=== PATIENT | female | born 1940 | race Caucasian/White ===

== ENCOUNTER 2018-01-04 05:46 | Outpatient (CLI) | payer SELFPAY | END 2018-01-04 05:47 | disposition EMS.NT | LOC: EMS 05:46 | PROVIDERS: ATTEND Surgery | DX: R53.1 Weakness (principal); W01.0XXA Fall on same level from slipping, tripping and stumbling without subsequent striking against object, initial encounter; Y92.002 Bathroom of unspecified non-institutional (private) residence as the place of occurrence of the external cause ==

== ENCOUNTER 2020-12-28 17:52 | Outpatient (CLI) | payer MEDICARE | END 2020-12-28 17:53 | disposition EMS.NT | LOC: EMS 17:52 | DX: Z03.89 Encounter for observation for other suspected diseases and conditions ruled out (principal) ==

== ENCOUNTER 2021-01-02 18:08 | Outpatient (CLI) | payer MEDICARE | END 2021-01-02 18:09 | disposition critical access hospital (66) | LOC: EMS 18:08 | DX: R53.1 Weakness (principal); M79.605 Pain in left leg; M79.604 Pain in right leg; L98.9 Disorder of the skin and subcutaneous tissue, unspecified; Z74.2 Need for assistance at home and no other household member able to render care | CPT/HCPCS: A0425; A0429 ==

== ENCOUNTER 2021-01-02 18:30 | Inpatient (IN) | payer MEDICARE ==
--- NOTE | 2021-01-02 18:58 | ED Physician Documentation ---
History of Present Illness - Stated complaint Stated Complaint: WEAKNESS - Chief complaint Chief Complaint: General - History obtained from History obtained from: Patient, EMS - Additonal information Additional information: 80-year-old woman presents by ambulance for inability to care for self. Since the hip surgery many years ago she developed lymphedema of both lower extremities which has been progressive. She lives alone, her daughter visits from the other side of [place] and helps out but is unable to give her the level of care she needs. At this point the patient is minimally ambulatory but says she can walk with a walker and may be some assistance. The pain in her legs is progressive. She is generally weak and has basically crumpled out of her chair 2 times in 48 hours. There was no specific injury. She is noted to be in atrial fibrillation on the way in, there was no previous diagnosis of this. She denies chest pain or trouble breathing though. Review of Systems Ten Systems: 10 systems reviewed and negative Constitutional: reports: Reviewed and negative Ears: reports: Reviewed and negative Nose: reports: Reviewed and negative PD PAST MEDICAL HISTORY - Present Medications Home Medications: Ambulatory Orders Medication Instructions Recorded Confirmed Duloxetine HCl [Cymbalta] 60 mg PO DAILY 01/02/21 01/02/21 - Allergies Allergies/Adverse Reactions: Allergies Allergy/AdvReac Type Severity Reaction Status Date / Time No Known Drug Allergies Allergy Verified 01/02/21 18:50 PD ED PE NORMAL - Vitals Vital signs reviewed: Yes - General General: Alert and oriented X 3, No acute distress, Other (She is covered in [facility]) - HEENT HEENT: PERRL, EOMI - Neck Neck: Supple, no meningeal sign, No bony TTP - Cardiac Cardiac: Other (Irregularly irregular without murmur) - Respiratory Respiratory: No respiratory distress, Clear bilaterally - Abdomen Abdomen: Normal bowel sounds, Soft, Non tender (She has intertriginous candidiasis in the groin) - Back Back: No CVA TTP, No spinal TTP - Extremities Extremities: Other (Bilateral pitting pedal edema with changes of lymphedema and venous stasis, no evidence of infection.) - Neuro Neuro: Alert and oriented X 3, Normal speech - Psych Psych: Normal mood, Normal affect Results - Vitals Vitals: Vital Signs - 24 hr 01/02/21 01/02/21 01/02/21 18:31 18:55 20:49 Temperature 36.6 C 36.6 C Heart Rate 72 87 93 Respiratory 20 15 13 Rate Blood Pressure 104/53 L 94/60 106/52 L O2 Saturation 100 99 100 Oxygen O2 Source Room air - EKG (time done) 1913 Rate: Rate (enter#) (86) Rhythm: NSR (w pacs/pvcs) [place]: Normal Intervals: Normal CA Ischemia: Non specific changes. No: ST elevation c/w ischemia - Labs Labs: Laboratory Tests 01/02/21 01/02/21 01/02/21 19:38 19:38 19:38 WBC 6.6 RBC 5.14 Hgb 14.9 Hct 46.4 MCV 90.3 MCH 29.0 MCHC 32.1 RDW 14.6 Plt Count 154 MPV 8.8 Neut # (Auto) 4.0 Lymph # (Auto) 1.9 Sullivan # (Auto) 0.6 Eos # (Auto) 0.1 Baso # (Auto) 0.0 Absolute Nucleated RBC 0.00 Nucleated RBC % 0.0 Sodium 137 Potassium 3.0 L Chloride 98 L Carbon Dioxide 27 Anion Gap 12.0 BUN 19 Creatinine 0.9 Estimated GFR (MDRD) 60 L Glucose 99 Calcium 9.2 Magnesium 1.9 Total Bilirubin 1.7 H AST 39 ALT 17 Alkaline Phosphatase 64 Total Creatine Kinase 202 Troponin I High Sens 180.6 H* B-Natriuretic Peptide Total Protein 7.3 Albumin 3.1 L Globulin 4.2 Albumin/Globulin Ratio 0.7 L Urine Color Urine Clarity Urine pH Ur Specific [place] Urine Protein Urine Glucose (UA) Urine Ketones Urine Occult Blood Urine Nitrite Urine Bilirubin Urine Urobilinogen Ur Leukocyte Esterase Urine RBC Urine WBC Ur Squamous Epith Cells Urine Bacteria Ur Microscopic Review Urine Culture Comments Nasal Adenovirus (PCR) Nasal B. parapertussis DNA (PCR) Nasal Coronavir 229E PCR Nasal Coronavir HKU1 PCR Nasal Coronavir NL63 PCR Nasal Coronavir OC43 PCR Nasal Enterovir/Rhinovir PCR Nasal Influenza B PCR Nasal Influenza A PCR Nasal Parainfluen 1 PCR Nasal Parainfluen 2 PCR Nasal Parainfluen 3 PCR Nasal Parainfluen 4 PCR Nasal RSV (PCR) Nasal B.pertussis DNA PCR Nasal C.pneumoniae (PCR) Fidel Human Metapneumo PCR Nasal M.pneumoniae (PCR) Nasal SARS-CoV-2 (PCR) 01/02/21 01/02/21 01/02/21 19:38 19:38 20:51 WBC RBC Hgb Hct MCV MCH MCHC RDW Plt Count MPV Neut # (Auto) Lymph # (Auto) Sullivan # (Auto) Eos # (Auto) Baso # (Auto) Absolute Nucleated RBC Nucleated RBC % Sodium Potassium Chloride Carbon Dioxide Anion Gap BUN Creatinine Estimated GFR (MDRD) Glucose Calcium Magnesium Total Bilirubin AST ALT Alkaline Phosphatase Total Creatine Kinase Troponin I High Sens 203.4 H* B-Natriuretic Peptide 1844 H Total Protein Albumin Globulin Albumin/Globulin Ratio Urine Color Urine Clarity Urine pH Ur Specific [place] Urine Protein Urine Glucose (UA) Urine Ketones Urine Occult Blood Urine Nitrite Urine Bilirubin Urine Urobilinogen Ur Leukocyte Esterase Urine RBC Urine WBC Ur Squamous Epith Cells Urine Bacteria Ur Microscopic Review Urine Culture Comments Nasal Adenovirus (PCR) NOT DETECTED Nasal B. parapertussis DNA (PCR) NOT DETECTED Nasal Coronavir 229E PCR NOT DETECTED Nasal Coronavir HKU1 PCR NOT DETECTED Nasal Coronavir NL63 PCR NOT DETECTED Nasal Coronavir OC43 PCR NOT DETECTED Nasal Enterovir/Rhinovir PCR NOT DETECTED Nasal Influenza B PCR NOT DETECTED Nasal Influenza A PCR NOT DETECTED Nasal Parainfluen 1 PCR NOT DETECTED Nasal Parainfluen 2 PCR NOT DETECTED Nasal Parainfluen 3 PCR NOT DETECTED Nasal Parainfluen 4 PCR NOT DETECTED Nasal RSV (PCR) NOT DETECTED Nasal B.pertussis DNA PCR NOT DETECTED Nasal C.pneumoniae (PCR) NOT DETECTED Fidel Human Metapneumo PCR NOT DETECTED Nasal M.pneumoniae (PCR) NOT DETECTED Nasal SARS-CoV-2 (PCR) NOT DETECTED 01/02/21 01/02/21 20:51 21:08 WBC RBC Hgb Hct MCV MCH MCHC RDW Plt Count MPV Neut # (Auto) Lymph # (Auto) Sullivan # (Auto) Eos # (Auto) Baso # (Auto) Absolute Nucleated RBC Nucleated RBC % Sodium Potassium Chloride Carbon Dioxide Anion Gap BUN Creatinine Estimated GFR (MDRD) Glucose Calcium Magnesium 2.0 Total Bilirubin AST ALT Alkaline Phosphatase Total Creatine Kinase Troponin I High Sens B-Natriuretic Peptide Total Protein Albumin Globulin Albumin/Globulin Ratio Urine Color YELLOW Urine Clarity SL. CLOUDY Urine pH 6.0 Ur Specific [place] 1.015 Urine Protein NEGATIVE Urine Glucose (UA) NEGATIVE Urine Ketones NEGATIVE Urine Occult Blood TRACE-INTA Urine Nitrite POSITIVE H Urine Bilirubin NEGATIVE Urine Urobilinogen 1 (NORMAL) Ur Leukocyte Esterase SMALL H Urine RBC 0-5 Urine WBC 6-10 H Ur Squamous Epith Cells NONE SEEN Urine Bacteria Many H Ur Microscopic Review INDICATED Urine Culture Comments INDICATED Nasal Adenovirus (PCR) Nasal B. parapertussis DNA (PCR) Nasal Coronavir 229E PCR Nasal Coronavir HKU1 PCR Nasal Coronavir NL63 PCR Nasal Coronavir OC43 PCR Nasal Enterovir/Rhinovir PCR Nasal Influenza B PCR Nasal Influenza A PCR Nasal Parainfluen 1 PCR Nasal Parainfluen 2 PCR Nasal Parainfluen 3 PCR Nasal Parainfluen 4 PCR Nasal RSV (PCR) Nasal B.pertussis DNA PCR Nasal C.pneumoniae (PCR) Fidel Human Metapneumo PCR Nasal M.pneumoniae (PCR) Nasal SARS-CoV-2 (PCR) PD MEDICAL DECISION MAKING - ED course ED course: 80-year-old woman presents by ambulance for failure to thrive, 2 falls out of a chair without injury over the last 48 hours. She is found to be in CHF, probably right-sided with A. fib of unclear acuity. Given the findings of elevated troponin probably demand ischemia, CHF etc. will need inpatient work-up and Dr. Sofia will admit. Departure - Departure Disposition: ED Place in Observation Clinical Impression: Afib, CHF (congestive heart failure) Condition: Serious
[2021-01-02 19:49] LABS: BASOPHILS % (AUTO) 0.3 %; EOSINOPHILS # (AUTO) 0.1 10^3/uL (0.0-0.7); EOSINOPHILS % (AUTO) 0.8 %; HCT - HEMATOCRIT 46.4 % (37.0-47.0); HGB - HEMOGLOBIN 14.9 g/dL (12.0-16.0); LYMPHOCYTES # (AUTO) 1.9 10^3/uL (1.5-3.5); LYMPHOCYTES % (AUTO) 29.2 %; MEAN CORPUSCULAR HGB CONC 32.1 g/dL (32.0-36.0); MEAN CORPUSCULAR VOLUME 90.3 fL (81.0-99.0); MEAN PLATELET VOLUME 8.8 fL (7.9-10.8); MONOCYTES # (AUTO) 0.6 10^3/uL (0.0-1.0); MONOCYTES % (AUTO) 9.1 %; NEUTROPHILS % (AUTO) 60.4 %; PLT - PLATELET COUNT 154 10^3/uL (130-450); RED BLOOD COUNT 5.14 10^6/uL (4.20-5.40); RED CELL DISTRIBUTION WIDTH 14.6 % (12.0-15.0); WHITE BLOOD COUNT 6.6 x10^3/uL (4.8-10.8)
[2021-01-02 20:03] LABS: ALBUMIN 3.1 g/dL (3.2-5.5); ALBUMIN/GLOBULIN RATIO 0.7 (1.0-2.2); BILIRUBIN,TOTAL 1.7 mg/dL (0.2-1.0); CALCIUM 9.2 mg/dL (8.5-10.3); CREATININE 0.9 mg/dL (0.4-1.0); MAGNESIUM 1.9 mg/dL (1.7-2.8); TOTAL PROTEIN 7.3 g/dL (6.7-8.2)
--- NOTE | 2021-01-02 20:08 | XRAY Report ---
PROCEDURE: Chest 1 View X-Ray INDICATIONS: New atrial fibrillation TECHNIQUE: One view of the chest was acquired. COMPARISON: None FINDINGS: Surgical changes and devices: None. Lungs and pleura: No pleural effusions or pneumothorax. Lungs are clear. Mediastinum: Mediastinal contours appear normal. Heart size is normal. Bones and chest wall: No suspicious bony lesions. Overlying soft tissues appear unremarkable. IMPRESSION: No acute cardiopulmonary process demonstrated radiographically. Reviewed by: William Flores MD on 01/02/2021 8:07 PM PDT Approved by: William Flores MD on 01/02/2021 8:07 PM PDT Station ID: [id number]
[2021-01-02] MEDS ORDERED: FUROSEMIDE 40 MG/4 ML VIAL IVP STA (20:30)
[2021-01-02] MEDS ORDERED: POTASSIUM CHLORIDE 20 MEQ TABLET PO STA ×2 (20:31→21:26)
[2021-01-02 20:41] LABS: B. PARAPERTUSSIS- RESP PCR PAN NOT DETECTED; B. PERTUSSIS- RESP PCR PANEL NOT DETECTED; C. PNEUMONIAE- RESP PCR PANEL NOT DETECTED; CORONAVIRUS 229E-RESP PCR NOT DETECTED; CORONAVIRUS HKU1-RESP PCR NOT DETECTED; CORONAVIRUS NL63-RESP PCR NOT DETECTED; CORONAVIRUS OC43-RESP PCR NOT DETECTED; HUMAN METAPNEUMOVIRUS NOT DETECTED; INFLUENZA A- RESP PCR PANEL NOT DETECTED; INFLUENZA B - RESP PCR PANEL NOT DETECTED; M. PNEUMONIAE- RESP PCR PANEL NOT DETECTED; PARAINFLUENZA VIRUS 1 NOT DETECTED; PARAINFLUENZA VIRUS 2 NOT DETECTED; PARAINFLUENZA VIRUS 3 NOT DETECTED; PARAINFLUENZA VIRUS 4 NOT DETECTED; RHINOVIRUS/ENTEROVIRUS NOT DETECTED; RSV- RESP PCR PANEL NOT DETECTED; SARS-CoV-2 -RESP PCR PANEL NOT DETECTED
[2021-01-02 21:14] LABS: BILIRUBIN,URINE NEGATIVE (NEGATIVE); GLUCOSE, URINE (UA) NEGATIVE (NEGATIVE); KETONES,URINE (UA) NEGATIVE (NEGATIVE); LEUKOCYTE ESTERASE, URINE SMALL (NEGATIVE); NITRITE,URINE POSITIVE (NEGATIVE); OCCULT BLOOD,URINE TRACE-INTA (NEGATIVE); PROTEIN,URINE NEGATIVE (NEGATIVE); UROBILINOGEN,URINE 1 (NORMAL) E.U./dL (NORMAL)
[2021-01-02 21:15] LABS: CLARITY,URINE SL. CLOUDY (CLEAR)
[2021-01-02 21:21] LABS: BACTERIA,URINE Many /HPF (None Seen); RBC,URINE 0-5 /HPF (0-5); SQUAMOUS EPITHELIAL CELL,UR NONE SEEN (<= Few)
[2021-01-02] MEDS ORDERED: ONDANSETRON ODT 4 MG TABLET TL PRN (21:23)
[2021-01-02] MEDS ORDERED: ONDANSETRON 4 MG/2 ML VIAL IVP PRN (21:23)
[2021-01-02] MEDS ORDERED: ACETAMINOPHEN 325 MG TABLET PO PRN (21:23)
[2021-01-02] MEDS ORDERED: ASPIRIN CHEW 81 MG TABLET PO STA (21:29)
--- NOTE | 2021-01-02 21:35 | HISTORY & PHYSICAL EXAMINATION ---
Chief Complaint - Chief Complaint Chief Complaint: Weakness History of Present Illness - Admitted From Admitted From:: Home - History Obtained From Records Reviewed: Yes History obtained from: Patient, ER Physician, EMR - History of Present Illness HPI Comment/Other: This is a 80-year-old female with a past medical history significant for chronic lymphedema, panic attacks who presents today due to worsening weakness. She states this has been going on now for quite a few weeks and today her daughter felt that she should be evaluated. The patient states she lives at home alone. She has had chronic lymphedema for the past 6 or 7 years. She had a left hip replacement done last year and currently ambulates with a walker at baseline. She states she has progressive generalized weakness over the past few weeks where she has become more sedentary. Her daughter, Karyna, is her primary caregiver and she has been unable to care for her any longer. The patient states she normally sits in a chair for most of the day but will get up as needed. She does not believe her legs are more edematous than usual. She denies any chest pain, dyspnea, palpitations, dizziness, lightheadedness. Reports no dysuria, urgency, frequency. She denies any prior cardiac history and denies a history of atrial fibrillation. She states she is only on duloxet ine for history of panic attacks. She cannot remember the name of her primary care physician but she has not seen them in one year. She states that she does not want to go to [facility]. She prefers to eventually go home with caregivers. She has previously looked into that but she states it is very difficult to find caregivers at this time. In the emergency department, she is noted to be afebrile. Her heart rate was in the 80s but she was in atrial fibrillation. She was normotensive and not tachypneic. She was saturating well on room air. Labs were significant for potassium of 3.0 and a troponin of 180.6. This was rechecked 1 hour later and it increased to 203.4. Her BNP was 1844. Chest x-ray showed no acute abnormalities. Her EKG revealed atrial fibrillation with flattening of T waves in the lateral leads and PVCs. Given the above findings, medicine was consulted for admission. I did discuss goals of care with the patient and she is not sure what she wants at this time and therefore she will be made a full code. History - Past Medical History Cardiovascular: reports: Atrial fibrillation Psych: reports: Panic attacks MRSA Hx?: No Other Past Medical History: Lymphedema. - Past Surgical History Ortho: reports: Hip replacement (Left.) - Family & Social History Family History: Mother: , Father: Family History Comment/Other: She states her father from a blood clot. She is unsure if it was a pulmonary embolism. Her mother at 82 from gastric cancer. Living arrangement: At home Living Situation: Alone Social History Notes: She lives at home alone. Her daughter, Karyna, checks on her on a near daily basis. She smoked a pack a day for 10 years but quit nearly 40 years ago. She denies any alcohol use. Meds/Allgy - Home Medications Home Medications: Ambulatory Orders Medication Instructions Recorded Confirmed Duloxetine HCl [Cymbalta] 60 mg PO DAILY 01/02/21 01/02/21 - Allergies Allergies/Adverse Reactions: Allergies Allergy/AdvReac Type Severity Reaction Status Date / Time No Known Drug Allergies Allergy Verified 01/02/21 18:50 Review of Systems - Constitutional Constitutional: reports: Weakness. denies: Fever, Chills - Ears, Nose & Throat Ears, Nose & Throat: denies: Nasal discharge, Nasal congestion - Cardiovascular Cariovascular: denies: Irregular heart rate, Palpitations, Chest pain, Edema, Lightheadedness, Syncope, Exertional dyspnea, Decr. exercise tolerance - Respiratory Respiratory: denies: Cough, Orthopnea, SOB at rest, SOB with exertion - Gastrointestinal Gastrointestinal: denies: Abdominal pain, Diarrhea, Nausea, Vomiting - Genitourinary Genitourinary: denies: Dysuria, Frequency - Musculoskeletal Musculoskeletal: denies: Muscle pain, Limited range of motion - Integumentary Integumentary: reports: Pigment changes. denies: Rash - Neurological Neurological: reports: General weakness. denies: Focal weakness, Dizziness - Hematologic/Lymphatic Hematologic/Lymphatic: denies: Anemia, Bleeding tendencies - All Other Systems All Other Systems: denies: Reviewed and negative Prior Level of Functionality: She has been declining over the past few months and is unable to care for herself. It appears she is dependent on her ADLs at this time. She ambulates w ith a walker. Exam - Vital Signs Reviewed Vital Signs: Yes Vital Signs: Vital Signs x48h Temp Pulse Resp BP Pulse Ox 01/02/21 20:49 93 13 106/52 L 100 01/02/21 18:55 36.6 C 87 15 94/60 99 01/02/21 18:31 36.6 C 72 20 104/53 L 100 - Physical Exam General Appearance: positive: No acute distress, Alert, Mild distress Eyes Bilateral: positive: Conjunctivae nml ENT: positive: Other (Poor dentition.) Respiratory: positive: No respiratory distress. negative: Wheezes, Rales Cardiovascular: positive: Irregularly irregular, Extrasystoles. negative: Tachycardia, Bradycardia, Systolic murmur Abdomen: positive: Non-tender, No distention. negative: Tenderness, Guarding, Rebound Skin: positive: Warm, Dry, Other (She has dermatitis over her bilateral lower extremities from the mid [place] up to nearly the knee. There is mild surrounding erythema and scaling of the skin.) Extremities: positive: Pedal edema (+2 to +3 pitting edema bilateral lower extremity) Neurologic/Psychiatric: positive: Other (No focal deficits.). negative: Disoriented to person, Disoriented to place, Disoriented to time Conclusion/Plan - Problem List (1) Suspected CHF (congestive heart failure) Conclusion/Plan: The concern is for underlying heart failure which may be contributing to her generalized weakness in her decline over the past few months. Her x-ray does not reveal pulmonary vascular congestion she is not hypoxic but she does have lower extremity edema and her BNP is nearly 2000. We will diurese her with Lasix 40 mg IV daily. Low-sodium diet. Strict I's and O's and daily weights. Will obtain echocardiogram in the morning. Daily BNP. (2) Elevated troponin Conclusion/Plan: Initial troponin was 180 and recheck one hour later was 203. Her EKG does not suggest ischemia. I suspect is likely demand ischemia given suspect underlying heart failure. At this time, we will trend her troponin and start her empirically on aspirin and Lipitor. Will start on low-dose beta-jason given the atrial fibrillation. We will consider a stress test tomorrow and so she will be made n.p.o. (3) Afib Conclusion/Plan: She is found to be in age fibrillation which appears to be a new diagnosis. She is rate controlled we will start her on low-dose metoprolol given she is currently normotensive. Check TSH. Monitor on telemetry. I discussed anticoagulation with her and she would like to think about this a little more. She will be on aspirin for the time being as well as Lovenox prophylactically. (4) Chronic venous stasis dermatitis of both lower extremities Conclusion/Plan: She has evidence of chronic venous stasis dermatitis likely secondary to chronic lower extremity edema due to lymhpedema. There is currently no evidence of infection. We will look to elevate her legs and diurese her with IV Lasix. Obtain echocardiogram to evaluate for heart failure. We will also check a duplex to rule out DVT. (5) Hypokalemia Conclusion/Plan: Potassium is decreased at 3.0. We will replace this orally as she is being diuresed. We will also check a magnesium. (6) Generalized weakness Conclusion/Plan: This may be secondary to underlying heart failure or just physical deconditioning. She also cannot take care of herself at this point in time and her daughter can no longer be her caregiver. We will consult PT and OT as well as social work to assist with disposition as she will likely need assisted living or a retirement facility. (7) Asymptomatic bacteriuria Conclusion/Plan: She has no symptoms to suggest an infection. This is likely asymptomatic bacteriuria. We will hold off on antibiotics. - Lab Results Lab results reviewed: Yes Fish Bones: 01/02/21 19:38 01/02/21 19:38 - Diagnostic Imaging Results Diagnostic Imaging Results: positive: Final report reviewed - EKG Results EKG Interpreted Independently: Yes EKG Comparison: No prior EKG EKG Findings: EKG shows atrial fibrillation with nonspecific ST segment changes. Flattening of T waves in the lateral leads. PVCs. Core Measures - Anticipated LOS I expect patient to be DC'd or transferred within 96 hours.: Yes - Issues Hospital Issues and Management Plan: 80-year-old female presents to the generalized weakness and physical deconditioning found to have suspected heart failure and elevated troponin. We will place her in observation for diuresis and echocardiogram. We will also consider a stress test as we trend her troponins. - DVT/VTE - Prophylaxis VTE/DVT Device ordered at admit?: No Not Ordered - Medical Reason: Complication VTE/DVT Prophylaxis med ordered at admit?: Yes
[2021-01-03] MEDS: NYSTATIN POWDER 15 GM TOP SCH ×3 (01:12→22:48)
[2021-01-03] MEDS: SODIUM CHLORIDE FLUSH 0.9% 10 ML SYRINGE IVP SCH ×3 (01:14→16:46)
--- NOTE | 2021-01-03 01:22 | Ultrasound Report ---
PROCEDURE: Duplex Ext Veins Bilateral INDICATIONS: KUN YOUSEF lower extremity edema TECHNIQUE: Real-time imaging, as well as color and pulse Doppler interrogation, were performed of the deep veins of both legs from the inguinal ligament to the popliteal fossa. COMPARISON: None. FINDINGS: The left popliteal vein is incompressible with intraluminal filling defect and lack of col or flow, consistent with deep venous thrombosis. There is also occlusive thrombus within the left sup erficial greater saphenous vein approximately 1.2 cm from the confluence with the common femoral vein . No deep venous thrombosis is seen in the right lower extremity or the remainder of the left lower ext remity. IMPRESSION: 1.Short segment deep venous thrombosis within the left popliteal vein. 2.Occlusive thrombus within the left superficial greater saphenous vein approximately 1.2 cm the conf luence with the common femoral vein. 3.No sonographic evidence of deep venous thrombosis in the right lower extremity. Findings were conveyed to the treatment team by the can dragger on 01/03/2021 at 12:50 AM. Reviewed by: Oscar Tilley MD on 01/03/2021 1:20 AM PDT Approved by: Oscar Tilley MD on 01/03/2021 1:20 AM PDT Station ID: [id number]
[2021-01-03 06:14] LABS: BASOPHILS # (AUTO) 0.1 10^3/uL (0.0-0.1); EOSINOPHILS # (AUTO) 0.1 10^3/uL (0.0-0.7); EOSINOPHILS % (AUTO) 2.1 %; HCT - HEMATOCRIT 44.2 % (37.0-47.0); HGB - HEMOGLOBIN 14.2 g/dL (12.0-16.0); LYMPHOCYTES # (AUTO) 2.2 10^3/uL (1.5-3.5); LYMPHOCYTES % (AUTO) 35.9 %; MEAN CORPUSCULAR HEMOGLOBIN 29.2 pg (27.0-31.0); MEAN CORPUSCULAR HGB CONC 32.1 g/dL (32.0-36.0); MEAN CORPUSCULAR VOLUME 90.9 fL (81.0-99.0); MEAN PLATELET VOLUME 8.9 fL (7.9-10.8); MONOCYTES # (AUTO) 0.7 10^3/uL (0.0-1.0); MONOCYTES % (AUTO) 11.1 %; NEUTROPHILS % (AUTO) 49.7 %; PLT - PLATELET COUNT 145 10^3/uL (130-450); RED BLOOD COUNT 4.86 10^6/uL (4.20-5.40); RED CELL DISTRIBUTION WIDTH 14.6 % (12.0-15.0); WHITE BLOOD COUNT 6.1 x10^3/uL (4.8-10.8)
[2021-01-03 06:34] LABS: BUN - BLOOD UREA NITROGEN 20 mg/dL (6-20); CALCIUM 8.7 mg/dL (8.5-10.3); CARBON DIOXIDE - CO2 28 mmol/L (21-32); CHLORIDE 99 mmol/L (101-111); CHOL/HDL RATIO 3.5 (<4.4); CHOLESTEROL 116 mg/dL; CREATININE 0.9 mg/dL (0.4-1.0); GFR - MDRD 60 (>89); GLUCOSE 89 mg/dL (70-100); HDL CHOLESTEROL 33 mg/dL; LDL CHOLESTEROL,CALCULATED 67 mg/dL; MAGNESIUM 1.8 mg/dL (1.7-2.8); POTASSIUM 3.1 mmol/L (3.5-5.0); SODIUM 137 mmol/L (135-145); TRIGLYCERIDES 80 mg/dL; VLDL CHOLESTEROL 16 mg/dL
[2021-01-03 07:56] LABS: ESTIMATED AVERAGE GLUCOSE 100 mg/dL (70-100); HEMOGLOBIN A1c% 5.1 % (4.27-6.07)
[2021-01-03] MEDS ORDERED: POTASSIUM CHLORIDE 20 MEQ TABLET PO ONE (07:56)
[2021-01-03] MEDS ORDERED: POTASSIUM CHLOR 10 MEQ/100 ML 10 MEQ/100 ML BAG IV SCH (08:00)
[2021-01-03] MEDS ORDERED: IOVERSOL 320 100 ML VIAL IVP ONE (08:24)
[2021-01-03] MEDS ORDERED: FUROSEMIDE 40 MG/4 ML VIAL IVP SCH ×2 (09:00→23:48)
[2021-01-03] MEDS ORDERED: ENOXAPARIN 40 MG/0.4 ML SYRINGE SUBQ SCH (09:00)
[2021-01-03] MEDS ORDERED: APIXABAN 5 MG TABLET PO SCH (09:00)
[2021-01-03] MEDS: ASPIRIN CHEW 81 MG TABLET PO SCH (10:33)
[2021-01-03] MEDS: METOPROLOL TARTRATE 25 MG TABLET PO SCH ×2 (10:35→22:46)
[2021-01-03] MEDS ORDERED: ZINC OXIDE 20% OINT 30 GM TUBE TOP PRN (11:40)
--- NOTE | 2021-01-03 11:43 | PROVIDER PROGRESS NOTE ---
Subjective - Prog Note Date Prog Note Date: 01/03/21 - Subjective Pt reports feeling: No change Subjective: Patient reported she has no chest pain, no fever. She reported she is willing to go to SNF if necessary. She reported her lower extremity bilaterally always swelling, and on and off for erythema but not warmth like today. She reported she was treated for bilateral leg cellulitis couple months ago. pt also had Sacral area with decubitus pressure ulcer with black skin color and drainage. Current Medications - Current Medications Current Medications: Active Medications Acetaminophen (Acetaminophen 325 Mg Tablet) 650 mg PO Q4HR PRN PRN Reason: Pain 1 to 4 Aspirin (Aspirin Chew 81 Mg Tablet) 81 mg PO DAILY [facility] Last Admin: 01/03/21 10:33 Dose: 81 mg Documented by: Atorvastatin Calcium (Atorvastatin 40 Mg Tablet) 40 mg PO QPM [facility] Enoxaparin Sodium (Enoxaparin 100 Mg/Ml Syringe) 100 mg SUBQ BID [facility] Furosemide (Furosemide 40 Mg/4 Ml Vial) 40 mg IVP DAILY [facility] Last Admin: 01/03/21 10:35 Dose: 40 mg Documented by: Cefazolin Sodium 2 gm/ Sodium (Chloride) 100 mls @ 200 mls/hr IV Q8HR [facility] Metoprolol Tartrate (Metoprolol Tartrate 25 Mg Tablet) 25 mg PO BID [facility] Last Admin: 01/03/21 10:35 Dose: Not Given Documented by: Multi-Ingredient Ointment (Zinc Oxide 20% Oint 30 Gm Tube) 1 applic TOP PRN PRN PRN Reason: Skin Care Nystatin (Nystatin Powder 15 Gm) 1 applic TOP BID [facility] Last Admin: 01/03/21 10:33 Dose: 1 applic Documented by: Ondansetron HCl (Ondansetron Odt 4 Mg Tablet) 4 mg TL Q6HR PRN PRN Reason: Nausea / Vomiting Ondansetron HCl (Ondansetron 4 Mg/2 Ml Vial) 4 mg IVP Q6HR PRN PRN Reason: Nausea / Vomiting Saccharomyces Boulardii (Saccharomyces Boulardii 250 Mg Capsule) 250 mg PO BIDWM [facility] Sodium Chloride (Sodium Chloride Flush 0.9% 10 Ml Syringe) 10 ml IVP PRN PRN PRN Reason: NEEDED PER PROVIDER ORDERS Sodium Chloride (Sodium Chloride Flush 0.9% 10 Ml Syringe) 10 ml IVP 0100,0900,1700 [facility] Last Admin: 01/03/21 10:33 Dose: 10 ml Documented by: Duloxetine HCl [Cymbalta] 60 mg PO DAILY 01/02/21 Objective - Vital Signs/Intake & Output Vital Signs: Vital Signs x48h Temp Pulse Resp BP Pulse Ox 01/03/21 08:07 36.5 C 55 L 20 98/43 L 96 01/03/21 05:00 36.6 C 51 L 18 101/49 L 99 Intake & Output: Intake & Output 12/31/20 01/01/21 01/02/21 01/03/21 23:59 23:59 23:59 23:59 Output Total 400 650 Balance -400 -650 - Objective General Appearance: positive: No acute distress, Alert. negative: Lethargic Eyes Bilateral: positive: Normal inspection, No lid inflammation ENT: positive: ENT inspection nml, No signs of dehydration. negative: Purulent nasal drainage Neck: positive: Nml inspection, Trachea midline. negative: Thyromegaly, Trache al deviation Respiratory: positive: Chest non-tender, No respiratory distress. negative: Wheezes Cardiovascular: positive: Regular rate & rhythm, No murmur. negative: Tachycardia, Bradycardia, Systolic murmur Peripheral Pulses: 2+ Radial (R), 2+ Radial (L) Abdomen: positive: Non-tender, Nml bowel sounds, No distention. negative: Tenderness Back: positive: Nml inspection Skin: positive: Warm, Other (Sacral area with pressure ulcers and black color of skin). negative: Cyanosis Extremities: positive: Other (Bilaterally lower extremity lymphedema, erythema, warmth.) Neurologic/Psychiatric: positive: Oriented x3, Sensation nml. negative: Weakness, Sensory loss, Facial droop, Slurred/abnml speech, Depressed mood/affect - Lab Results Fish Bones: 01/03/21 05:54 01/03/21 05:54 Other Labs: Lab Results x24hrs 01/03/21 01/03/21 01/03/21 Range/Units 05:54 05:54 05:54 WBC (4.8-10.8) x10^3/uL RBC (4.20-5.40) 10^6/uL Hgb (12.0-16.0) g/dL Hct (37.0-47.0) % MCV (81.0-99.0) fL MCH (27.0-31.0) pg MCHC (32.0-36.0) g/dL RDW (12.0-15.0) % Plt Count (130-450) 10^3/uL MPV (7.9-10.8) fL Neut # (Auto) (1.5-6.6) 10^3/uL Lymph # (Auto) (1.5-3.5) 10^3/uL Amelia # (Auto) (0.0-1.0) 10^3/uL Eos # (Auto) (0.0-0.7) 10^3/uL Baso # (Auto) (0.0-0.1) 10^3/uL Absolute Nucleated RBC x10^3/uL Nucleated RBC % /100WBC Sodium (135-145) mmol/L Potassium (3.5-5.0) mmol/L Chloride (101-111) mmol/L Carbon Dioxide (21-32) mmol/L Anion Gap (6-13) BUN (6-20) mg/dL Creatinine (0.4-1.0) mg/dL Estimated GFR (MDRD) (>89) Glucose (70-100) mg/dL Estimat Average Glucose 100 (70-100) mg/dL Hemoglobin A1c % 5.1 (4.27-6.07) % Calcium (8.5-10.3) mg/dL Magnesium (1.7-2.8) mg/dL Total Bilirubin (0.2-1.0) mg/dL AST (10-42) IU/L ALT (10-60) IU/L Alkaline Phosphatase (42-121) IU/L Total Creatine Kinase (22-269) IU/L Troponin I High Sens 300.6 H* (2.3-14.8) ng/L B-Natriuretic Peptide (5-100) pg/mL Total Protein (6.7-8.2) g/dL Albumin (3.2-5.5) g/dL Globulin (2.1-4.2) g/dL Albumin/Globulin Ratio (1.0-2.2) Triglycerides ( - 149) mg/dL Cholesterol ( - 199) mg/dL LDL Cholesterol, Calc ( - 129) mg/dL VLDL Cholesterol mg/dL HDL Cholesterol (60 - ) mg/dL LDL/HDL Ratio (<4.4) Cholesterol/HDL Ratio (<4.4) TSH (0.34-5.60) uIU/mL Free T4 0.92 (0.58-1.64) ng/dL Urine Color Urine Clarity (CLEAR) Urine pH (5.0-7.5) PH Ur Specific [place] (1.002-1.030) Urine Protein (NEGATIVE) mg/dL Urine Glucose (UA) (NEGATIVE) mg/dL Urine Ketones (NEGATIVE) mg/dL Urine Occult Blood (NEGATIVE) Urine Nitrite (NEGATIVE) Urine Bilirubin (NEGATIVE) Urine Urobilinogen (NORMAL) E.U./dL Ur Leukocyte Esterase (NEGATIVE) Urine RBC (0-5) /HPF Urine WBC (0-5) /HPF Ur Squamous Epith Cells (<= Few) Urine Bacteria (None Seen) /HPF Ur Microscopic Review Urine Culture Comments Nasal Adenovirus (PCR) Nasal B. parapertussis DNA (PCR) Nasal Coronavir 229E PCR Nasal Coronavir HKU1 PCR Nasal Coronavir NL63 PCR Nasal Coronavir OC43 PCR Nasal Enterovir/Rhinovir PCR Nasal Influenza B PCR Nasal Influenza A PCR Nasal Parainfluen 1 PCR Nasal Parainfluen 2 PCR Nasal Parainfluen 3 PCR Nasal Parainfluen 4 PCR Nasal RSV (PCR) Nasal B.pertussis DNA PCR Nasal C.pneumoniae (PCR) Fidel Human Metapneumo PCR Nasal M.pneumoniae (PCR) Nasal SARS-CoV-2 (PCR) 01/03/21 01/03/21 01/03/21 Range/Units 05:54 05:54 05:54 WBC 6.1 (4.8-10.8) x10^3/uL RBC 4.86 (4.20-5.40) 10^6/uL Hgb 14.2 (12.0-16.0) g/dL Hct 44.2 (37.0-47.0) % MCV 90.9 (81.0-99.0) fL MCH 29.2 (27.0-31.0) pg MCHC 32.1 (32.0-36.0) g/dL RDW 14.6 (12.0-15.0) % Plt Count 145 (130-450) 10^3/uL MPV 8.9 (7.9-10.8) fL Neut # (Auto) 3.0 (1.5-6.6) 10^3/uL Lymph # (Auto) 2.2 (1.5-3.5) 10^3/uL Amelia # (Auto) 0.7 (0.0-1.0) 10^3/uL Eos # (Auto) 0.1 (0.0-0.7) 10^3/uL Baso # (Auto) 0.1 (0.0-0.1) 10^3/uL Absolute Nucleated RBC 0.00 x10^3/uL Nucleated RBC % 0.0 /100WBC Sodium 137 (135-145) mmol/L Potassium 3.1 L (3.5-5.0) mmol/L Chloride 99 L (101-111) mmol/L Carbon Dioxide 28 (21-32) mmol/L Anion Gap 10.0 (6-13) BUN 20 (6-20) mg/dL Creatinine 0.9 (0.4-1.0) mg/dL Estimated GFR (MDRD) 60 L (>89) Glucose 89 (70-100) mg/dL Estimat Average Glucose (70-100) mg/dL Hemoglobin A1c % (4.27-6.07) % Calcium 8.7 (8.5-10.3) mg/dL Magnesium 1.8 (1.7-2.8) mg/dL Total Bilirubin (0.2-1.0) mg/dL AST (10-42) IU/L ALT (10-60) IU/L Alkaline Phosphatase (42-121) IU/L Total Creatine Kinase (22-269) IU/L Troponin I High Sens (2.3-14.8) ng/L B-Natriuretic Peptide 1872 H (5-100) pg/mL Total Protein (6.7-8.2) g/dL Albumin (3.2-5.5) g/dL Globulin (2.1-4.2) g/dL Albumin/Globulin Ratio (1.0-2.2) Triglycerides 80 ( - 149) mg/dL Cholesterol 116 ( - 199) mg/dL LDL Cholesterol, Calc 67 ( - 129) mg/dL VLDL Cholesterol 16 mg/dL HDL Cholesterol 33 L (60 - ) mg/dL LDL/HDL Ratio 2.0 (<4.4) Cholesterol/HDL Ratio 3.5 (<4.4) TSH (0.34-5.60) uIU/mL Free T4 (0.58-1.64) ng/dL Urine Color Urine Clarity (CLEAR) Urine pH (5.0-7.5) PH Ur Specific [place] (1.002-1.030) Urine Protein (NEGATIVE) mg/dL Urine Glucose (UA) (NEGATIVE) mg/dL Urine Ketones (NEGATIVE) mg/dL Urine Occult Blood (NEGATIVE) Urine Nitrite (NEGATIVE) Urine Bilirubin (NEGATIVE) Urine Urobilinogen (NORMAL) E.U./dL Ur Leukocyte Esterase (NEGATIVE) Urine RBC (0-5) /HPF Urine WBC (0-5) /HPF Ur Squamous Epith Cells (<= Few) Urine Bacteria (None Seen) /HPF Ur Microscopic Review Urine Culture Comments Nasal Adenovirus (PCR) Nasal B. parapertussis DNA (PCR) Nasal Coronavir 229E PCR Nasal Coronavir HKU1 PCR Nasal Coronavir NL63 PCR Nasal Coronavir OC43 PCR Nasal Enterovir/Rhinovir PCR Nasal Influenza B PCR Nasal Influenza A PCR Nasal Parainfluen 1 PCR Nasal Parainfluen 2 PCR Nasal Parainfluen 3 PCR Nasal Parainfluen 4 PCR Nasal RSV (PCR) Nasal B.pertussis DNA PCR Nasal C.pneumoniae (PCR) Fidel Human Metapneumo PCR Nasal M.pneumoniae (PCR) Nasal SARS-CoV-2 (PCR) 01/02/21 01/02/21 01/02/21 Range/Units 23:50 21:08 20:51 WBC (4.8-10.8) x10^3/uL RBC (4.20-5.40) 10^6/uL Hgb (12.0-16.0) g/dL Hct (37.0-47.0) % MCV (81.0-99.0) fL MCH (27.0-31.0) pg MCHC (32.0-36.0) g/dL RDW (12.0-15.0) % Plt Count (130-450) 10^3/uL MPV (7.9-10.8) fL Neut # (Auto) (1.5-6.6) 10^3/uL Lymph # (Auto) (1.5-3.5) 10^3/uL Amelia # (Auto) (0.0-1.0) 10^3/uL Eos # (Auto) (0.0-0.7) 10^3/uL Baso # (Auto) (0.0-0.1) 10^3/uL Absolute Nucleated RBC x10^3/uL Nucleated RBC % /100WBC Sodium (135-145) mmol/L Potassium (3.5-5.0) mmol/L Chloride (101-111) mmol/L Carbon Dioxide (21-32) mmol/L Anion Gap (6-13) BUN (6-20) mg/dL Creatinine (0.4-1.0) mg/dL Estimated GFR (MDRD) (>89) Glucose (70-100) mg/dL Estimat Average Glucose (70-100) mg/dL Hemoglobin A1c % (4.27-6.07) % Calcium (8.5-10.3) mg/dL Magnesium (1.7-2.8) mg/dL Total Bilirubin (0.2-1.0) mg/dL AST (10-42) IU/L ALT (10-60) IU/L Alkaline Phosphatase (42-121) IU/L Total Creatine Kinase (22-269) IU/L Troponin I High Sens 238.4 H* (2.3-14.8) ng/L B-Natriuretic Peptide (5-100) pg/mL Total Protein (6.7-8.2) g/dL Albumin (3.2-5.5) g/dL Globulin (2.1-4.2) g/dL Albumin/Globulin Ratio (1.0-2.2) Triglycerides ( - 149) mg/dL Cholesterol ( - 199) mg/dL LDL Cholesterol, Calc ( - 129) mg/dL VLDL Cholesterol mg/dL HDL Cholesterol (60 - ) mg/dL LDL/HDL Ratio (<4.4) Cholesterol/HDL Ratio (<4.4) TSH 5.86 H (0.34-5.60) uIU/mL Free T4 (0.58-1.64) ng/dL Urine Color YELLOW Urine Clarity SL. CLOUDY (CLEAR) Urine pH 6.0 (5.0-7.5) PH Ur Specific [place] 1.015 (1.002-1.030) Urine Protein NEGATIVE (NEGATIVE) mg/dL Urine Glucose (UA) NEGATIVE (NEGATIVE) mg/dL Urine Ketones NEGATIVE (NEGATIVE) mg/dL Urine Occult Blood TRACE-INTA (NEGATIVE) Urine Nitrite POSITIVE H (NEGATIVE) Urine Bilirubin NEGATIVE (NEGATIVE) Urine Urobilinogen 1 (NORMAL) (NORMAL) E.U./dL Ur Leukocyte Esterase SMALL H (NEGATIVE) Urine RBC 0-5 (0-5) /HPF Urine WBC 6-10 H (0-5) /HPF Ur Squamous Epith Cells NONE SEEN (<= Few) Urine Bacteria Many H (None Seen) /HPF Ur Microscopic Review INDICATED Urine Culture Comments INDICATED Nasal Adenovirus (PCR) Nasal B. parapertussis DNA (PCR) Nasal Coronavir 229E PCR Nasal Coronavir HKU1 PCR Nasal Coronavir NL63 PCR Nasal Coronavir OC43 PCR Nasal Enterovir/Rhinovir PCR Nasal Influenza B PCR Nasal Influenza A PCR Nasal Parainfluen 1 PCR Nasal Parainfluen 2 PCR Nasal Parainfluen 3 PCR Nasal Parainfluen 4 PCR Nasal RSV (PCR) Nasal B.pertussis DNA PCR Nasal C.pneumoniae (PCR) Fidel Human Metapneumo PCR Nasal M.pneumoniae (PCR) Nasal SARS-CoV-2 (PCR) 01/02/21 01/02/21 01/02/21 Range/Units 20:51 20:51 19:38 WBC (4.8-10.8) x10^3/uL RBC (4.20-5.40) 10^6/uL Hgb (12.0-16.0) g/dL Hct (37.0-47.0) % MCV (81.0-99.0) fL MCH (27.0-31.0) pg MCHC (32.0-36.0) g/dL RDW (12.0-15.0) % Plt Count (130-450) 10^3/uL MPV (7.9-10.8) fL Neut # (Auto) (1.5-6.6) 10^3/uL Lymph # (Auto) (1.5-3.5) 10^3/uL Amelia # (Auto) (0.0-1.0) 10^3/uL Eos # (Auto) (0.0-0.7) 10^3/uL Baso # (Auto) (0.0-0.1) 10^3/uL Absolute Nucleated RBC x10^3/uL Nucleated RBC % /100WBC Sodium (135-145) mmol/L Potassium (3.5-5.0) mmol/L Chloride (101-111) mmol/L Carbon Dioxide (21-32) mmol/L Anion Gap (6-13) BUN (6-20) mg/dL Creatinine (0.4-1.0) mg/dL Estimated GFR (MDRD) (>89) Glucose (70-100) mg/dL Estimat Average Glucose (70-100) mg/dL Hemoglobin A1c % (4.27-6.07) % Calcium (8.5-10.3) mg/dL Magnesium 2.0 (1.7-2.8) mg/dL Total Bilirubin (0.2-1.0) mg/dL AST (10-42) IU/L ALT (10-60) IU/L Alkaline Phosphatase (42-121) IU/L Total Creatine Kinase (22-269) IU/L Troponin I High Sens 203.4 H* (2.3-14.8) ng/L B-Natriuretic Peptide (5-100) pg/mL Total Protein (6.7-8.2) g/dL Albumin (3.2-5.5) g/dL Globulin (2.1-4.2) g/dL Albumin/Globulin Ratio (1.0-2.2) Triglycerides ( - 149) mg/dL Cholesterol ( - 199) mg/dL LDL Cholesterol, Calc ( - 129) mg/dL VLDL Cholesterol mg/dL HDL Cholesterol (60 - ) mg/dL LDL/HDL Ratio (<4.4) Cholesterol/HDL Ratio (<4.4) TSH (0.34-5.60) uIU/mL Free T4 (0.58-1.64) ng/dL Urine Color Urine Clarity (CLEAR) Urine pH (5.0-7.5) PH Ur Specific [place] (1.002-1.030) Urine Protein (NEGATIVE) mg/dL Urine Glucose (UA) (NEGATIVE) mg/dL Urine Ketones (NEGATIVE) mg/dL Urine Occult Blood (NEGATIVE) Urine Nitrite (NEGATIVE) Urine Bilirubin (NEGATIVE) Urine Urobilinogen (NORMAL) E.U./dL Ur Leukocyte Esterase (NEGATIVE) Urine RBC (0-5) /HPF Urine WBC (0-5) /HPF Ur Squamous Epith Cells (<= Few) Urine Bacteria (None Seen) /HPF Ur Microscopic Review Urine Culture Comments Nasal Adenovirus (PCR) NOT DETECTED Nasal B. parapertussis DNA (PCR) NOT DETECTED Nasal Coronavir 229E PCR NOT DETECTED Nasal Coronavir HKU1 PCR NOT DETECTED Nasal Coronavir NL63 PCR NOT DETECTED Nasal Coronavir OC43 PCR NOT DETECTED Nasal Enterovir/Rhinovir PCR NOT DETECTED Nasal Influenza B PCR NOT DETECTED Nasal Influenza A PCR NOT DETECTED Nasal Parainfluen 1 PCR NOT DETECTED Nasal Parainfluen 2 PCR NOT DETECTED Nasal Parainfluen 3 PCR NOT DETECTED Nasal Parainfluen 4 PCR NOT DETECTED Nasal RSV (PCR) NOT DETECTED Nasal B.pertussis DNA PCR NOT DETECTED Nasal C.pneumoniae (PCR) NOT DETECTED Fidel Human Metapneumo PCR NOT DETECTED Nasal M.pneumoniae (PCR) NOT DETECTED Nasal SARS-CoV-2 (PCR) NOT DETECTED 01/02/21 01/02/21 01/02/21 Range/Units 19:38 19:38 19:38 WBC (4.8-10.8) x10^3/uL RBC (4.20-5.40) 10^6/uL Hgb (12.0-16.0) g/dL Hct (37.0-47.0) % MCV (81.0-99.0) fL MCH (27.0-31.0) pg MCHC (32.0-36.0) g/dL RDW (12.0-15.0) % Plt Count (130-450) 10^3/uL MPV (7.9-10.8) fL Neut # (Auto) (1.5-6.6) 10^3/uL Lymph # (Auto) (1.5-3.5) 10^3/uL Amelia # (Auto) (0.0-1.0) 10^3/uL Eos # (Auto) (0.0-0.7) 10^3/uL Baso # (Auto) (0.0-0.1) 10^3/uL Absolute Nucleated RBC x10^3/uL Nucleated RBC % /100WBC Sodium 137 (135-145) mmol/L Potassium 3.0 L (3.5-5.0) mmol/L Chloride 98 L (101-111) mmol/L Carbon Dioxide 27 (21-32) mmol/L Anion Gap 12.0 (6-13) BUN 19 (6-20) mg/dL Creatinine 0.9 (0.4-1.0) mg/dL Estimated GFR (MDRD) 60 L (>89) Glucose 99 (70-100) mg/dL Estimat Average Glucose (70-100) mg/dL Hemoglobin A1c % (4.27-6.07) % Calcium 9.2 (8.5-10.3) mg/dL Magnesium 1.9 (1.7-2.8) mg/dL Total Bilirubin 1.7 H (0.2-1.0) mg/dL AST 39 (10-42) IU/L ALT 17 (10-60) IU/L Alkaline Phosphatase 64 (42-121) IU/L Total Creatine Kinase 202 (22-269) IU/L Troponin I High Sens 180.6 H* (2.3-14.8) ng/L B-Natriuretic Peptide 1844 H (5-100) pg/mL Total Protein 7.3 (6.7-8.2) g/dL Albumin 3.1 L (3.2-5.5) g/dL Globulin 4.2 (2.1-4.2) g/dL Albumin/Globulin Ratio 0.7 L (1.0-2.2) Triglycerides ( - 149) mg/dL Cholesterol ( - 199) mg/dL LDL Cholesterol, Calc ( - 129) mg/dL VLDL Cholesterol mg/dL HDL Cholesterol (60 - ) mg/dL LDL/HDL Ratio (<4.4) Cholesterol/HDL Ratio (<4.4) TSH (0.34-5.60) uIU/mL Free T4 (0.58-1.64) ng/dL Urine Color Urine Clarity (CLEAR) Urine pH (5.0-7.5) PH Ur Specific [place] (1.002-1.030) Urine Protein (NEGATIVE) mg/dL Urine Glucose (UA) (NEGATIVE) mg/dL Urine Ketones (NEGATIVE) mg/dL Urine Occult Blood (NEGATIVE) Urine Nitrite (NEGATIVE) Urine Bilirubin (NEGATIVE) Urine Urobilinogen (NORMAL) E.U./dL Ur Leukocyte Esterase (NEGATIVE) Urine RBC (0-5) /HPF Urine WBC (0-5) /HPF Ur Squamous Epith Cells (<= Few) Urine Bacteria (None Seen) /HPF Ur Microscopic Review Urine Culture Comments Nasal Adenovirus (PCR) Nasal B. parapertussis DNA (PCR) Nasal Coronavir 229E PCR Nasal Coronavir HKU1 PCR Nasal Coronavir NL63 PCR Nasal Coronavir OC43 PCR Nasal Enterovir/Rhinovir PCR Nasal Influenza B PCR Nasal Influenza A PCR Nasal Parainfluen 1 PCR Nasal Parainfluen 2 PCR Nasal Parainfluen 3 PCR Nasal Parainfluen 4 PCR Nasal RSV (PCR) Nasal B.pertussis DNA PCR Nasal C.pneumoniae (PCR) Fidel Human Metapneumo PCR Nasal M.pneumoniae (PCR) Nasal SARS-CoV-2 (PCR) 01/02/21 Range/Units 19:38 WBC 6.6 (4.8-10.8) x10^3/uL RBC 5.14 (4.20-5.40) 10^6/uL Hgb 14.9 (12.0-16.0) g/dL Hct 46.4 (37.0-47.0) % MCV 90.3 (81.0-99.0) fL MCH 29.0 (27.0-31.0) pg MCHC 32.1 (32.0-36.0) g/dL RDW 14.6 (12.0-15.0) % Plt Count 154 (130-450) 10^3/uL MPV 8.8 (7.9-10.8) fL Neut # (Auto) 4.0 (1.5-6.6) 10^3/uL Lymph # (Auto) 1.9 (1.5-3.5) 10^3/uL Amelia # (Auto) 0.6 (0.0-1.0) 10^3/uL Eos # (Auto) 0.1 (0.0-0.7) 10^3/uL Baso # (Auto) 0.0 (0.0-0.1) 10^3/uL Absolute Nucleated RBC 0.00 x10^3/uL Nucleated RBC % 0.0 /100WBC Sodium (135-145) mmol/L Potassium (3.5-5.0) mmol/L Chloride (101-111) mmol/L Carbon Dioxide (21-32) mmol/L Anion Gap (6-13) BUN (6-20) mg/dL Creatinine (0.4-1.0) mg/dL Estimated GFR (MDRD) (>89) Glucose (70-100) mg/dL Estimat Average Glucose (70-100) mg/dL Hemoglobin A1c % (4.27-6.07) % Calcium (8.5-10.3) mg/dL Magnesium (1.7-2.8) mg/dL Total Bilirubin (0.2-1.0) mg/dL AST (10-42) IU/L ALT (10-60) IU/L Alkaline Phosphatase (42-121) IU/L Total Creatine Kinase (22-269) IU/L Troponin I High Sens (2.3-14.8) ng/L B-Natriuretic Peptide (5-100) pg/mL Total Protein (6.7-8.2) g/dL Albumin (3.2-5.5) g/dL Globulin (2.1-4.2) g/dL Albumin/Globulin Ratio (1.0-2.2) Triglycerides ( - 149) mg/dL Cholesterol ( - 199) mg/dL LDL Cholesterol, Calc ( - 129) mg/dL VLDL Cholesterol mg/dL HDL Cholesterol (60 - ) mg/dL LDL/HDL Ratio (<4.4) Cholesterol/HDL Ratio (<4.4) TSH (0.34-5.60) uIU/mL Free T4 (0.58-1.64) ng/dL Urine Color Urine Clarity (CLEAR) Urine pH (5.0-7.5) PH Ur Specific [place] (1.002-1.030) Urine Protein (NEGATIVE) mg/dL Urine Glucose (UA) (NEGATIVE) mg/dL Urine Ketones (NEGATIVE) mg/dL Urine Occult Blood (NEGATIVE) Urine Nitrite (NEGATIVE) Urine Bilirubin (NEGATIVE) Urine Urobilinogen (NORMAL) E.U./dL Ur Leukocyte Esterase (NEGATIVE) Urine RBC (0-5) /HPF Urine WBC (0-5) /HPF Ur Squamous Epith Cells (<= Few) Urine Bacteria (None Seen) /HPF Ur Microscopic Review Urine Culture Comments Nasal Adenovirus (PCR) Nasal B. parapertussis DNA (PCR) Nasal Coronavir 229E PCR Nasal Coronavir HKU1 PCR Nasal Coronavir NL63 PCR Nasal Coronavir OC43 PCR Nasal Enterovir/Rhinovir PCR Nasal Influenza B PCR Nasal Influenza A PCR Nasal Parainfluen 1 PCR Nasal Parainfluen 2 PCR Nasal Parainfluen 3 PCR Nasal Parainfluen 4 PCR Nasal RSV (PCR) Nasal B.pertussis DNA PCR Nasal C.pneumoniae (PCR) Fidel Human Metapneumo PCR Nasal M.pneumoniae (PCR) Nasal SARS-CoV-2 (PCR) ABX Reporting Has patient been on IV antibiotics over the past 48 hours?: Yes Assessment/Plan - Problem List (1) Suspected CHF (congestive heart failure) Impression: 01/03 pt present generalized weakness, Bilateral lower extremity edema, Significant elevated BNP, We will finish echo study, continue Lasix, Low-sodium diet, Strict I's and O's and daily weights. Continue telemetry and vital signs monitor (2) elevated troponin Initial troponin was 180 and recheck one hour later was 203, Continue elevated to 300. Her EKG Show V4 V5 st segment depression, Soft blood pressure, although pt denies chest pain. We have no patient previous EKG compared. At this time we will continue monitor troponin, start with Lovenox, Lipitor, Beta block, adjust meds dosage as pt's HR and BP measure. Unfortunately we have no provider do stress test in the inpatient, We will finish echo study, we advise the patient to have stress test as outpatient. (3) Afib She is found to be in a fibrillation which appears to be a new diagnosis. She is rate controlled we will start her on low-dose metoprolol given she is currently normotensive. TSH is elevated but Free T4 is normal. Monitor on telemetry. night provider discussed anticoagulation with her and she would like to think about this a little more. she is on lovenox for her DVT as well. (4) cellulitis with Chronic venous stasis dermatitis of both lower extremities Conclusion/Plan: Patient present Erythema, warmth, redness at her lower extremities. suspension she had cellulitis. pt has hx of cellulitis at her legs. start with ancef, blood culture, check lactic acid, specially pt has soft BP. (5)DVT Patient has left Lower extremity DVT, We will start with Lovenox. Patient has allergy with IV contrast. pt has No respiratory distress, no tachycardia or t achypnea, We will check D-dimer, hold angiogram of chest at this point. (6)pressure ulcers Patient Present severe decubitus ulcers at sacral area. We will consult with the wound care, and do wound culture, we consulted with surgeon (7) Hypokalemia We will replace this orally as she is being diuresed. We will also check a magnesium. (8) Generalized weakness We will consult PT and OT as well as social work to assist with disposition as she is willing to b/c to snf facility if needed (9) Asymptomatic bacteriuria Conclusion/Plan: She has denies dysuria. we will followup with UA culture.
[2021-01-03] MEDS ORDERED: PROPOFOL 500 MG/50 ML 500 MG/50 ML VIAL ONE (12:55)
[2021-01-03] MEDS: ceFAZolin 2 GM in SODIUM CHLORIDE 0.9% 100ML 100 ML IV SCH ×2 (14:45→22:47)
--- NOTE | 2021-01-03 16:42 | CONSULTATION NOTE ---
Referring Provider Consult Date: 01/03/21 History of Present Illness - History Obtained From Records Reviewed: yes History obtained from: pt Exam Limitations: none - History of Present Illness HPI Comment/Other: Sacral pressure sore present on admission. History - Past Medical History Cardiovascular: reports: Atrial fibrillation Respiratory: reports: None Neuro: reports: None Endocrine/Autoimmune: reports: None GI: reports: None : reports: Incontinence Psych: reports: Panic attacks Musculoskeletal: reports: None Derm: reports: None MRSA Hx?: No Other Past Medical History: Lymphedema. - Past Surgical History Ortho: reports: Hip replacement (Left.) - Family & Social History Family History: Mother: , Father: Family History Comment/Other: She states her father from a blood clot. She is unsure if it was a pulmonary embolism. Her mother at 82 from gastric cancer. Living arrangement: At home Living Situation: Alone Social History Notes: She lives at home alone. Her daughter, Karyna, checks on her on a near daily basis. She smoked a pack a day for 10 years but quit nearly 40 years ago. She denies any alcohol use. Meds/Allgy - Home Medications Home Medications: Ambulatory Orders Medication Instructions Recorded Confirmed Duloxetine HCl [Cymbalta] 60 mg PO DAILY 01/02/21 01/02/21 - Allergies Allergies/Adverse Reactions: Allergies Allergy/AdvReac Type Severity Reaction Status Date / Time No Known Drug Allergies Allergy Verified 01/02/21 18:50 Review of Systems - Other Findings Other Findings: failure to thrive at home and not able to take care of herself adequately 10 pt ros as above otherwise unremarkable Exam - Vital Signs Reviewed Vital Signs: Yes Vital Signs: Vital Signs x48h Temp Pulse Resp BP Pulse Ox 01/03/21 16:11 36.6 C 81 18 85/49 L 01/03/21 13:00 36.5 C 89 12 112/37 L 95 - Physical Exam General Appearance: positive: No acute distress, Alert Eyes Bilateral: positive: PERRL, EOMI, No scleral icterus ENT: positive: No signs of dehydration Neck: positive: No JVD Respiratory: positive: No respiratory distress Abdomen: positive: Non-tender, No distention Skin: positive: Other (sacral area 6 cx 6 cm area ecchymosis with patches epidermolysis/ superficial slough. no full thickness skin loss at this time no fluctuance or infection) Extremities: positive: Other (chronic bilateral lymphedema without skin breakdown or cellulitis) Neurologic/Psychiatric: positive: Oriented x3 Conclusion/Plan - Problem List (1) Generalized weakness Conclusion/Plan: She has a superficial sacral pressure sore present on admit. No full thickness skin loss or fluctuance. Agree with present care will follow. If the pressure sore progresses plan bedside sharp debridement. - Lab Results Lab results reviewed: Yes Fish Bones: 01/03/21 05:54 01/03/21 05:54
[2021-01-03] MEDS: SACCHAROMYCES BOULARDII 250 MG CAPSULE PO SCH (16:46)
[2021-01-03] MEDS: ATORVASTATIN 40 MG TABLET PO SCH (22:46)
[2021-01-03] MEDS: ENOXAPARIN 100 MG/ML SYRINGE SUBQ SCH (22:46)
[2021-01-04] MEDS: METOPROLOL TARTRATE 25 MG TABLET PO SCH (00:44)
[2021-01-04] MEDS: SODIUM CHLORIDE FLUSH 0.9% 10 ML SYRINGE IVP SCH ×3 (00:45→21:50)
[2021-01-04] MEDS: ceFAZolin 2 GM in SODIUM CHLORIDE 0.9% 100ML 100 ML IV SCH ×3 (06:28→21:49)
[2021-01-04 06:30] LABS: BASOPHILS % (AUTO) 0.4 %; EOSINOPHILS # (AUTO) 0.1 10^3/uL (0.0-0.7); EOSINOPHILS % (AUTO) 1.8 %; HCT - HEMATOCRIT 39.9 % (37.0-47.0); HGB - HEMOGLOBIN 12.7 g/dL (12.0-16.0); LYMPHOCYTES # (AUTO) 3.4 10^3/uL (1.5-3.5); LYMPHOCYTES % (AUTO) 47.5 %; MEAN CORPUSCULAR HEMOGLOBIN 29.1 pg (27.0-31.0); MEAN CORPUSCULAR HGB CONC 31.8 g/dL (32.0-36.0); MEAN CORPUSCULAR VOLUME 91.3 fL (81.0-99.0); MONOCYTES # (AUTO) 0.7 10^3/uL (0.0-1.0); MONOCYTES % (AUTO) 9.8 %; NEUTROPHILS # (AUTO) 2.9 10^3/uL (1.5-6.6); NEUTROPHILS % (AUTO) 40.2 %; PLT - PLATELET COUNT 145 10^3/uL (130-450); RED BLOOD COUNT 4.37 10^6/uL (4.20-5.40); RED CELL DISTRIBUTION WIDTH 14.6 % (12.0-15.0); WHITE BLOOD COUNT 7.2 x10^3/uL (4.8-10.8)
[2021-01-04 06:36] LABS: CALCIUM 8.4 mg/dL (8.5-10.3); MAGNESIUM 1.8 mg/dL (1.7-2.8); POTASSIUM 2.9 mmol/L (3.5-5.0)
[2021-01-04 06:45] LABS: CHOL/HDL RATIO 3.6 (<4.4); CHOLESTEROL 109 mg/dL; HDL CHOLESTEROL 30 mg/dL; LDL CHOLESTEROL,CALCULATED 66 mg/dL; LDL/HDL RATIO 2.2 (<4.4); TRIGLYCERIDES 65 mg/dL; VLDL CHOLESTEROL 13 mg/dL
[2021-01-04] MEDS ORDERED: POTASSIUM CHLORIDE 20 MEQ TABLET PO ONE (07:16)
[2021-01-04] MEDS ORDERED: SODIUM CHLORIDE 0.9% 500 ML IV ONE ×2 (07:46→08:04)
[2021-01-04] MEDS: ASPIRIN CHEW 81 MG TABLET PO SCH (08:06)
[2021-01-04] MEDS: SACCHAROMYCES BOULARDII 250 MG CAPSULE PO SCH ×2 (08:07→17:14)
[2021-01-04] MEDS: ENOXAPARIN 100 MG/ML SYRINGE SUBQ SCH ×2 (08:12→21:48)
[2021-01-04] MEDS: POTASSIUM CHLOR 10 MEQ/100 ML 10 MEQ/100 ML BAG IV SCH ×4 (09:59→14:40)
[2021-01-04] MEDS: NYSTATIN POWDER 15 GM TOP SCH ×2 (10:04→21:49)
--- NOTE | 2021-01-04 11:46 | PROVIDER PROGRESS NOTE ---
Assessment/Plan - Problem List (1) Systolic heart failure Assessment/Plan: 01/04 Echo show patient had 40 to 45% of EF. This is new to pt. Because of patient's hypotension, will hold Lasix, metoprolol, Continue ow-sodium diet, Strict I's and O's and daily weights. Continue telemetry and vital signs monito r. 01/03 pt present generalized weakness, Bilateral lower extremity edema, Significant elevated BNP, We will finish echo study, continue Lasix, Low-sodium diet, Strict I's and O's and daily weights. Continue telemetry and vital signs monitor (2)hypotension 01/04 vital show pt has hypotension. pt report she has hx of hypotension and her family has the similar hx. Patient is asymptomatic, patient feed by herself, She had appropriate conversation with me, She denies dizziness, lightheaded, chest pain. We will hold Blood pressure medicine metoprolol, Lasix now. order 500cc NS IV bolus, continue closely vital monitor. (3) elevated troponin 01/04 trended down, pt denies chest pain, continue Lovenox for total 48 hours, then switch to Eliquis. Initial troponin was 180 and recheck one hour later was 203, Continue elevated to 300. Her EKG Show V4 V5 st segment depression, Soft blood pressure, although pt denies chest pain. We have no patient previous EKG compared. At this time we will continue monitor troponin, start with Lovenox, Lipitor, Beta block, adjust meds dosage as pt's HR and BP measure. Unfortunately we have no provider do stre ss test in the inpatient, We will finish echo study, we advise the patient to have stress test as outpatient. (4) Afib 10-20, HR is 90-100. Because the patient hypotension, metoprolol is on hold. We may give patient digoxin if patient's a fibrillation is uncontrolled. Continue Lovenox now, Continue director of marketing operations She is found to be in a fibrillation which appears to be a new diagnosis. She is rate controlled we will start her on low-dose metoprolol given she is currently normotensive. TSH is elevated but Free T4 is normal. Monitor on telemetry. night provider discussed anticoagulation with her and she would like to think about this a little more. she is on lovenox for her DVT as well. (5) cellulitis with Chronic venous stasis dermatitis of both lower extremities Conclusion/Plan: 1020, improved, Patient's lower extremity erythema, swelling are reduced. Wound culture is pending, blood culture is negative for bacteremia. We will continue intravenous antibiotics. Patient present Erythema, warmth, redness at her lower extremities. suspension she had cellulitis. pt has hx of cellulitis at her legs. start with ancef, blood culture, check lactic acid, specially pt has soft BP. (6)DVT 1020, we will continue treated with Lovenox now then we will switch Eliquis on tomorrow Patient has left Lower extremity DVT, We will start with Lovenox. Patient has allergy with IV contrast. pt has No respiratory distress, no tachycardia or tachypnea, We will check D-dimer, hold angiogram of chest at this point. (7)pressure ulcers 1020, we consulted with surgeon, Surgeon suggested no any procedure for patient at this time. We consulted with [facility] clinic, we will continue dressing change, will continue ten and reposition of patient, We will continue nurse skin care Patient Present severe decubitus ulcers at sacral area. We will consult with the wound care, and do wound culture, we consulted with surgeon (8) Hypokalemia We will replace this orally as she is being diuresed. We will also check a magnesium. (9) Generalized weakness We will consult PT and OT as well as social work to assist with disposition as she is willing to b/c to assisted facility if needed (10) Asymptomatic bacteriuria Conclusion/Plan: She has denies dysuria. we will followup with UA culture. - Current Meds Current Meds: Current Medications Generic Name Dose Route Start Last Admin Trade Name Debbie PRN Reason Stop Dose Admin Acetaminophen 650 mg 01/02/21 21:23 01/03/21 23:06 Acetaminophen 325 Mg Tablet PO 650 mg Q4HR PRN Administration Pain 1 to 4 Aspirin 81 mg 01/03/21 09:00 01/04/21 08:06 Aspirin Chew 81 Mg Tablet PO 81 mg DAILY FELIBERTO Administration Atorvastatin Calcium 40 mg 01/03/21 21:00 01/03/21 22:46 Atorvastatin 40 Mg Tablet PO 40 mg QPM FELIBERTO Administration Enoxaparin Sodium 100 mg 01/03/21 21:00 01/04/21 08:12 Enoxaparin 100 Mg/Ml Syringe SUBQ 100 mg BID FELIBERTO Administration Cefazolin Sodium 2 gm/ Sodium 100 mls @ 200 mls/hr 01/03/21 14:00 01/04/21 07:38 Chloride IV Infused Q8HR FELIBERTO Infusion Potassium Chloride 10 meq in 100 mls @ 100 mls/hr 01/04/21 08:00 01/04/21 11:34 Potassium Chloride IV 01/04/21 11:59 85 mls/hr Q1H FELIBERTO Administration Nystatin 1 applic 01/02/21 23:00 01/04/21 10:04 Nystatin Powder 15 Gm TOP 1 applic BID FELIBERTO Administration Saccharomyces Boulardii 250 mg 01/03/21 17:00 01/04/21 08:07 Saccharomyces Boulardii 250 Mg Capsule PO 250 mg BIDWM FELIBERTO Administration Sodium Chloride 10 ml 01/03/21 01:00 01/04/21 08:11 Sodium Chloride Flush 0.9% 10 Ml Syringe IVP 10 ml 0100,0900,1700 FELIBERTO Administration - Lab Result Fish Bone Diagrams: 01/04/21 05:54 01/04/21 05:54 - Additional Planning My Orders: My Active Orders 01/03/21 Lunch Cardiac Diet [DIET] 01/03/21 11:23 Wound Care - MAC [RC] .ONCE CUL,WOUND (AEROBIC) [RM] Stat 01/03/21 11:38 Blood Culture [CULTURE, BLOOD #1] [RM] Urgent 01/03/21 11:51 Blood Culture [CULTURE, BLOOD #2] [RM] Urgent 01/03/21 14:00 ceFAZolin [Ancef] 2 gm Sodium Chloride 0.9% 100Ml [Normal Saline 0.9% 100Ml] 100 ml IV Q8HR 01/03/21 17:00 Saccharomyces Boulardii [Florastor] 250 mg PO BIDWM 01/03/21 21:00 Enoxaparin [Lovenox] 100 mg SUBQ BID 01/04/21 08:00 Potassium Chlor 10 Meq/100 ml [Potassium Chloride] 10 meq in 100 ml IV Q1H 01/04/21 11:35 Incentive Spirometry - RT [RC] TID Turn and Reposition [RC] Q2H 01/04/21 11:36 Miscellaenous Nursing Order [RC] DAILY Subjective - Subjective Patient Reports: Feeling Better, Resting Comfortably Objective Vital Signs: Vital Signs - 24 hr 01/03/21 01/03/2121 13:00 16:11 21:00 Temperature 36.5 C 36.6 C 36.8 C Heart Rate [ 89 81 96 Brachial] Heart Rate [ Monitoring electrodes] Respiratory 12 18 20 Rate Blood Pressure Blood Pressure 112/37 L 85/49 L 120/77 [Right Brachial artery] O2 Saturation 95 01/03/21 01/03/21 01/04/21 22:43 22:46 00:44 Temperature Heart Rate [ 96 Brachial] Heart Rate [ Monitoring electrodes] Respiratory Rate Blood Pressure 82/42 L 108/42 L Blood Pressure 82/42 L [Right Brachial artery] O2 Saturation 01/04/21 01/04/21 01/04/21 00:51 06:00 06:05 Temperature 36.9 C 36.6 C Heart Rate [ 138 H 80 Brachial] Heart Rate [ 134 H Monitoring electrodes] Respiratory 17 16 Rate Blood Pressure Blood Pressure 108/42 L 86/36 L 79/42 L [Right Brachial artery] O2 Saturation 94 97 01/04/21 01/04/21 01/04/21 07:39 07:47 07:51 Temperature 36.5 C Heart Rate [ 92 105 H Brachial] Heart Rate [ Monitoring electrodes] Respiratory 18 Rate Blood Pressure Blood Pressure 66/38 L 59/42 L 72/50 L [Right Brachial artery] O2 Saturation 97 01/04/21 11:37 Temperature Heart Rate [ 100 Brachial] Heart Rate [ Monitoring electrodes] Respiratory 16 Rate Blood Pressure Blood Pressure 81/45 L [Right Brachial artery] O2 Saturation 98 Oxygen O2 Source Room air I&O (Last 24 Hrs): Intake and Output Totals x24h 01/02/21 01/03/21 01/04/21 23:59 23:59 23:59 Intake Total 1176 1230.000 Output Total 400 2900 200 Balance -400 -1724 1030.000 General: Alert, Oriented x3, Cooperative, No acute distress HEENT: Atraumatic Neck: Supple Lymphatic: no adenopathy Neuro: Alert, Non Focal, Oriented Times 3 Cardiovascular: Regular rate, Normal S1, Normal S2 Respiratory: Chest non-tender, No respiratory distress Abdomen: Normal bowel sounds, Soft Extremities: Other (Patient has a history of bilateral lower extremity lymphedema. Erythema, warmth, swelling Of Bilaterally lower extremity are significantly reduced.) Comments/Notes: Patient had pressure at sacral area, - Results Results: Laboratory Results WBC 7.2 x10^3/uL (4.8-10.8) 01/04/21 05:54 RBC 4.37 10^6/uL (4.20-5.40) 01/04/21 05:54 Hgb 12.7 g/dL (12.0-16.0) 01/04/21 05:54 Hct 39.9 % (37.0-47.0) 01/04/21 05:54 MCV 91.3 fL (81.0-99.0) 01/04/21 05:54 MCH 29.1 pg (27.0-31.0) 01/04/21 05:54 MCHC 31.8 g/dL (32.0-36.0) L 01/04/21 05:54 RDW 14.6 % (12.0-15.0) 01/04/21 05:54 Plt Count 145 10^3/uL (130-450) 01/04/21 05:54 MPV 9.0 fL (7.9-10.8) 01/04/21 05:54 Neut # (Auto) 2.9 10^3/uL (1.5-6.6) 01/04/21 05:54 Lymph # (Auto) 3.4 10^3/uL (1.5-3.5) 01/04/21 05:54 Reynolds # (Auto) 0.7 10^3/uL (0.0-1.0) 01/04/21 05:54 Eos # (Auto) 0.1 10^3/uL (0.0-0.7) 01/04/21 05:54 Baso # (Auto) 0.0 10^3/uL (0.0-0.1) 01/04/21 05:54 Absolute Nucleated RBC 0.00 x10^3/uL 01/04/21 05:54 Nucleated RBC % 0.0 /100WBC 01/04/21 05:54 D-Dimer > 1050.0 ng/mL (200.0-255.0) H 01/03/21 12:59 Sodium 138 mmol/L (135-145) 01/04/21 05:54 Potassium 2.9 mmol/L (3.5-5.0) L 01/04/21 05:54 Chloride 99 mmol/L (101-111) L 01/04/21 05:54 Carbon Dioxide 29 mmol/L (21-32) 01/04/21 05:54 Anion Gap 10.0 (6-13) 01/04/21 05:54 BUN 19 mg/dL (6-20) 01/04/21 05:54 Creatinine 1.0 mg/dL (0.4-1.0) 01/04/21 05:54 Estimated GFR (MDRD) 53 (>89) L 01/04/21 05:54 Glucose 104 mg/dL (70-100) H 01/04/21 05:54 Estimat Average Glucose 100 mg/dL (70-100) 01/03/21 05:54 Hemoglobin A1c % 5.1 % (4.27-6.07) 01/03/21 05:54 Lactic Acid 2.0 mmol/L (0.5-2.2) 01/03/21 11:51 Calcium 8.4 mg/dL (8.5-10.3) L 01/04/21 05:54 Magnesium 1.8 mg/dL (1.7-2.8) 01/04/21 05:54 Total Bilirubin 1.7 mg/dL (0.2-1.0) H 01/02/21 19:38 AST 39 IU/L (10-42) 01/02/21 19:38 ALT 17 IU/L (10-60) 01/02/21 19:38 Alkaline Phosphatase 64 IU/L (42-121) 01/02/21 19:38 Total Creatine Kinase 202 IU/L (22-269) 01/02/21 19:38 Troponin I High Sens 198.1 ng/L (2.3-14.8) H* 01/03/21 18:20 B-Natriuretic Peptide 1239 pg/mL (5-100) H 01/04/21 05:54 Total Protein 7.3 g/dL (6.7-8.2) 01/02/21 19:38 Albumin 3.1 g/dL (3.2-5.5) L 01/02/21 19:38 Globulin 4.2 g/dL (2.1-4.2) 01/02/21 19:38 Albumin/Globulin Ratio 0.7 (1.0-2.2) L 01/02/21 19:38 Triglycerides 65 mg/dL (-149) 01/04/21 05:54 Cholesterol 109 mg/dL (-199) 01/04/21 05:54 LDL Cholesterol, Calc 66 mg/dL (-129) 01/04/21 05:54 VLDL Cholesterol 13 mg/dL 01/04/21 05:54 HDL Cholesterol 30 mg/dL (60-) L 01/04/21 05:54 LDL/HDL Ratio 2.2 (<4.4) 01/04/21 05:54 Cholesterol/HDL Ratio 3.6 (<4.4) 01/04/21 05:54 TSH 5.86 uIU/mL (0.34-5.60) H 01/02/21 20:51 Free T4 0.92 ng/dL (0.58-1.64) 01/03/21 05:54 Urine Color YELLOW 01/02/21 21:08 Urine Clarity SL. CLOUDY (CLEAR) 01/02/21 21:08 Urine pH 6.0 PH (5.0-7.5) 01/02/21 21:08 Ur Specific [place] 1.015 (1.002-1.030) 01/02/21 21:08 Urine Protein NEGATIVE mg/dL (NEGATIVE) 01/02/21 21:08 Urine Glucose (UA) NEGATIVE mg/dL (NEGATIVE) 01/02/21 21:08 Urine Ketones NEGATIVE mg/dL (NEGATIVE) 01/02/21 21:08 Urine Occult Blood TRACE-INTA (NEGATIVE) 01/02/21 21:08 Urine Nitrite POSITIVE (NEGATIVE) H 01/02/21 21:08 Urine Bilirubin NEGATIVE (NEGATIVE) 01/02/21 21:08 Urine Urobilinogen 1 (NORMAL) E.U./dL (NORMAL) 01/02/21 21:08 Ur Leukocyte Esterase SMALL (NEGATIVE) H 01/02/21 21:08 Urine RBC 0-5 /HPF (0-5) 01/02/21 21:08 Urine WBC 6-10 /HPF (0-5) H 01/02/21 21:08 Ur Squamous Epith Cells NONE SEEN (<= Few) 01/02/21 21:08 Urine Bacteria Many /HPF (None Seen) H 01/02/21 21:08 Ur Microscopic Review INDICATED 01/02/21 21:08 Urine Culture Comments INDICATED 01/02/21 21:08 Nasal Adenovirus (PCR) NOT DETECTED 01/02/21 19:38 Nasal B. parapertussis DNA (PCR) NOT DETECTED 01/02/21 19:38 Nasal Coronavir 229E PCR NOT DETECTED 01/02/21 19:38 Nasal Coronavir HKU1 PCR NOT DETECTED 01/02/21 19:38 Nasal Coronavir NL63 PCR NOT DETECTED 01/02/21 19:38 Nasal Coronavir OC43 PCR NOT DETECTED 01/02/21 19:38 Nasal Enterovir/Rhinovir PCR NOT DETECTED 01/02/21 19:38 Nasal Influenza B PCR NOT DETECTED 01/02/21 19:38 Nasal Influenza A PCR NOT DETECTED 01/02/21 19:38 Nasal Parainfluen 1 PCR NOT DETECTED 01/02/21 19:38 Nasal Parainfluen 2 PCR NOT DETECTED 01/02/21 19:38 Nasal Parainfluen 3 PCR NOT DETECTED 01/02/21 19:38 Nasal Parainfluen 4 PCR NOT DETECTED 01/02/21 19:38 Nasal RSV (PCR) NOT DETECTED 01/02/21 19:38 Nasal B.pertussis DNA PCR NOT DETECTED 01/02/21 19:38 Nasal C.pneumoniae (PCR) NOT DETECTED 01/02/21 19:38 Fidel Human Metapneumo PCR NOT DETECTED 01/02/21 19:38 Nasal M.pneumoniae (PCR) NOT DETECTED 01/02/21 19:38 Nasal SARS-CoV-2 (PCR) NOT DETECTED 01/02/21 19:38 ABX Reporting Has patient been on IV antibiotics over the past 48 hours?: Yes Current Medications - Current Medications Current Medications: Active Medications Acetaminophen (Acetaminophen 325 Mg Tablet) 650 mg PO Q4HR PRN PRN Reason: Pain 1 to 4 Last Admin: 01/03/21 23:06 Dose: 650 mg Documented by: Aspirin (Aspirin Chew 81 Mg Tablet) 81 mg PO DAILY [facility] Last Admin: 01/04/21 08:06 Dose: 81 mg Documented by: Atorvastatin Calcium (Atorvastatin 40 Mg Tablet) 40 mg PO QPM [facility] Last Admin: 01/03/21 22:46 Dose: 40 mg Documented by: Enoxaparin Sodium (Enoxaparin 100 Mg/Ml Syringe) 100 mg SUBQ BID [facility] Last Admin: 01/04/21 08:12 Dose: 100 mg Documented by: Cefazolin Sodium 2 gm/ Sodium (Chloride) 100 mls @ 200 mls/hr IV Q8HR [facility] Last Infusion: 01/04/21 07:38 Dose: Infused Documented by: Multi-Ingredient Ointment (Zinc Oxide 20% Oint 30 Gm Tube) 1 applic TOP PRN PRN PRN Reason: Skin Care Nystatin (Nystatin Powder 15 Gm) 1 applic TOP BID [facility] Last Admin: 01/04/21 10:04 Dose: 1 applic Documented by: Ondansetron HCl (Ondansetron Odt 4 Mg Tablet) 4 mg TL Q6HR PRN PRN Reason: Nausea / Vomiting Ondansetron HCl (Ondansetron 4 Mg/2 Ml Vial) 4 mg IVP Q6HR PRN PRN Reason: Nausea / Vomiting Saccharomyces Boulardii (Saccharomyces Boulardii 250 Mg Capsule) 250 mg PO BIDWM [facility] Last Admin: 01/04/21 08:07 Dose: 250 mg Documented by: Sodium Chloride (Sodium Chloride Flush 0.9% 10 Ml Syringe) 10 ml IVP PRN PRN PRN Reason: NEEDED PER PROVIDER ORDERS Sodium Chloride (Sodium Chloride Flush 0.9% 10 Ml Syringe) 10 ml IVP 0100,0900,1700 [facility] Last Admin: 01/04/21 08:11 Dose: 10 ml Documented by: Duloxetine HCl [Cymbalta] 60 mg PO DAILY 01/02/21
--- NOTE | 2021-01-04 17:14 | PROVIDER PROGRESS NOTE ---
Objective - Vital Signs/Intake & Output Reviewed Vital Signs: Yes Vital Signs: Vital Signs x48h Temp Pulse Resp BP Pulse Ox 01/04/21 15:59 36.4 C L 60 18 94/59 L 96 01/04/21 11:37 100 16 81/45 L 98 Intake & Output: Intake & Output 01/01/21 01/02/21 01/03/21 01/04/21 23:59 23:59 23:59 23:59 Intake Total 1176 2010.000 Output Total 400 2900 550 Balance -400 -1724 1460.000 - Objective General Appearance: positive: No acute distress, Alert Eyes Bilateral: positive: PERRL, EOMI Respiratory: positive: No respiratory distress Abdomen: positive: Non-tender, No distention Skin: positive: Other (sacral pressure sore without cellulits or fluctuance. improved. ecchymosis and epidermolysis present. dermis is viable. area is gently cleansed with betadine brush and sponge. no necrotic tissue to debride) - Lab Results Fish Bones: 01/04/21 05:54 01/04/21 05:54 Other Labs: Lab Results x24hrs 01/04/21 01/04/21 01/04/21 Range/Units 05:54 05:54 05:54 WBC (4.8-10.8) x10^3/uL RBC (4.20-5.40) 10^6/uL Hgb (12.0-16.0) g/dL Hct (37.0-47.0) % MCV (81.0-99.0) fL MCH (27.0-31.0) pg MCHC (32.0-36.0) g/dL RDW (12.0-15.0) % Plt Count (130-450) 10^3/uL MPV (7.9-10.8) fL Neut # (Auto) (1.5-6.6) 10^3/uL Lymph # (Auto) (1.5-3.5) 10^3/uL Winkler # (Auto) (0.0-1.0) 10^3/uL Eos # (Auto) (0.0-0.7) 10^3/uL Baso # (Auto) (0.0-0.1) 10^3/uL Absolute Nucleated RBC x10^3/uL Nucleated RBC % /100WBC Sodium 138 (135-145) mmol/L Potassium 2.9 L (3.5-5.0) mmol/L Chloride 99 L (101-111) mmol/L Carbon Dioxide 29 (21-32) mmol/L Anion Gap 10.0 (6-13) BUN 19 (6-20) mg/dL Creatinine 1.0 (0.4-1.0) mg/dL Estimated GFR (MDRD) 53 L (>89) Glucose 104 H (70-100) mg/dL Calcium 8.4 L (8.5-10.3) mg/dL Magnesium 1.8 (1.7-2.8) mg/dL Troponin I High Sens (2.3-14.8) ng/L B-Natriuretic Peptide 1239 H (5-100) pg/mL Triglycerides 65 ( - 149) mg/dL Cholesterol 109 ( - 199) mg/dL LDL Cholesterol, Calc 66 ( - 129) mg/dL VLDL Cholesterol 13 mg/dL HDL Cholesterol 30 L (60 - ) mg/dL LDL/HDL Ratio 2.2 (<4.4) Cholesterol/HDL Ratio 3.6 (<4.4) 01/04/21 01/03/21 Range/Units 05:54 18:20 WBC 7.2 (4.8-10.8) x10^3/uL RBC 4.37 (4.20-5.40) 10^6/uL Hgb 12.7 (12.0-16.0) g/dL Hct 39.9 (37.0-47.0) % MCV 91.3 (81.0-99.0) fL MCH 29.1 (27.0-31.0) pg MCHC 31.8 L (32.0-36.0) g/dL RDW 14.6 (12.0-15.0) % Plt Count 145 (130-450) 10^3/uL MPV 9.0 (7.9-10.8) fL Neut # (Auto) 2.9 (1.5-6.6) 10^3/uL Lymph # (Auto) 3.4 (1.5-3.5) 10^3/uL Winkler # (Auto) 0.7 (0.0-1.0) 10^3/uL Eos # (Auto) 0.1 (0.0-0.7) 10^3/uL Baso # (Auto) 0.0 (0.0-0.1) 10^3/uL Absolute Nucleated RBC 0.00 x10^3/uL Nucleated RBC % 0.0 /100WBC Sodium (135-145) mmol/L Potassium (3.5-5.0) mmol/L Chloride (101-111) mmol/L Carbon Dioxide (21-32) mmol/L Anion Gap (6-13) BUN (6-20) mg/dL Creatinine (0.4-1.0) mg/dL Estimated GFR (MDRD) (>89) Glucose (70-100) mg/dL Calcium (8.5-10.3) mg/dL Magnesium (1.7-2.8) mg/dL Troponin I High Sens 198.1 H* (2.3-14.8) ng/L B-Natriuretic Peptide (5-100) pg/mL Triglycerides ( - 149) mg/dL Cholesterol ( - 199) mg/dL LDL Cholesterol, Calc ( - 129) mg/dL VLDL Cholesterol mg/dL HDL Cholesterol (60 - ) mg/dL LDL/HDL Ratio (<4.4) Cholesterol/HDL Ratio (<4.4) Assessment/Plan - Problem List (1) Generalized weakness Impression: sacral pressure sore with ecchymosis and epidermolysis. viable dermis. no necrotic tissue to debride. no infection. current daily dressing care is fine.
[2021-01-04] MEDS: ATORVASTATIN 40 MG TABLET PO SCH (21:47)
[2021-01-05] MEDS: SODIUM CHLORIDE FLUSH 0.9% 10 ML SYRINGE IVP SCH ×4 (01:00→23:59)
[2021-01-05] MEDS: ceFAZolin 2 GM in SODIUM CHLORIDE 0.9% 100ML 100 ML IV SCH (05:52)
[2021-01-05 05:55] LABS: BASOPHILS % (AUTO) 0.8 %; EOSINOPHILS # (AUTO) 0.1 10^3/uL (0.0-0.7); EOSINOPHILS % (AUTO) 2.2 %; HCT - HEMATOCRIT 38.2 % (37.0-47.0); LYMPHOCYTES # (AUTO) 2.2 10^3/uL (1.5-3.5); LYMPHOCYTES % (AUTO) 45.1 %; MEAN CORPUSCULAR HEMOGLOBIN 28.7 pg (27.0-31.0); MEAN CORPUSCULAR HGB CONC 31.4 g/dL (32.0-36.0); MEAN CORPUSCULAR VOLUME 91.4 fL (81.0-99.0); MEAN PLATELET VOLUME 9.1 fL (7.9-10.8); MONOCYTES # (AUTO) 0.6 10^3/uL (0.0-1.0); MONOCYTES % (AUTO) 11.5 %; PLT - PLATELET COUNT 106 10^3/uL (130-450); RED BLOOD COUNT 4.18 10^6/uL (4.20-5.40); RED CELL DISTRIBUTION WIDTH 14.6 % (12.0-15.0)
[2021-01-05 05:59] LABS: CALCIUM 8.2 mg/dL (8.5-10.3); CREATININE 0.8 mg/dL (0.4-1.0); MAGNESIUM 1.8 mg/dL (1.7-2.8); POTASSIUM 3.3 mmol/L (3.5-5.0)
[2021-01-05] MEDS ORDERED: POTASSIUM CHLORIDE 20 MEQ TABLET PO ONE (07:18)
[2021-01-05] MEDS: ENOXAPARIN 100 MG/ML SYRINGE SUBQ SCH (09:45)
[2021-01-05] MEDS: ASPIRIN CHEW 81 MG TABLET PO SCH (09:45)
[2021-01-05] MEDS: SACCHAROMYCES BOULARDII 250 MG CAPSULE PO SCH ×2 (09:45→17:12)
[2021-01-05] MEDS: NYSTATIN POWDER 15 GM TOP SCH ×2 (09:46→21:47)
--- NOTE | 2021-01-05 10:44 | PROVIDER PROGRESS NOTE ---
Assessment/Plan - Problem List (1) Systolic heart failure Assessment/Plan: 01/05 Patient reported she feels good, Patient has no respiratory distress. Because the patient still had soft blood pressure, We will continue hold metoprolol, Lasix. 01/04 Echo show patient had 40 to 45% of EF. This is new to pt. Because of patient's hypotension, will hold Lasix, metoprolol, Continue ow-sodium diet, Strict I's and O's and daily weights. Continue telemetry and vital signs monitor. 01/03 pt present generalized weakness, Bilateral lower extremity edema, Significant elevated BNP, We will finish echo study, continue Lasix, Low-sodium diet, Strict I's and O's and daily weights. Continue telemetry and vital signs monitor (2)hypotension 1021 Improved, Systolic blood pressure is 97. Patient report she usually run low Blood pressure for her for family. Patient is asymptomatic. We will hold patient blood pressure medicine, Continue vital signs monitor. 01/04 vital show pt has hypotension. pt report she has hx of hypotension and her family has the similar hx. Patient is asymptomatic, patient feed by herself, She had appropriate conversation with me, She denies dizziness, lightheaded, chest pain. We will hold Blood pressure medicine metoprolol, Lasix now. order 500cc NS IV bolus, continue closely vital monitor. (3) elevated troponin 1021, Patient denying chest pain, Troponin now is treaded down, We will switch Lovenox to Eliquis. Continue telemetry and vital signs monitor 01/04 trended down, pt denies chest pain, continue Lovenox for total 48 hours, then switch to Eliquis. Initial troponin was 180 and recheck one hour later was 203, Continue elevated to 300. Her EKG Show V4 V5 st segment depression, Soft blood pressure, although pt denies chest pain. We have no patient previous EKG compared. At this time we will continue monitor troponin, start with Lovenox, Lipitor, Beta block, adjust meds dosage as pt's HR and BP measure. Unfortunately we have no provider do stress test in the inpatient, We will finish echo study, we advise the patient to have stress test as outpatient. (4) Afib 1021, HR Is controlled at 71. We will continue Eliquis. 01-04, HR is 90-100. Because the patient hypotension, metoprolol is on hold. We may give patient digoxin if patient's a fibrillation is uncontrolled. Continue Lovenox now, Continue residential monitor She is found to be in a fibrillation which appears to be a new diagnosis. She is rate controlled we will start her on low-dose metoprolol given she is currently normotensive. TSH is elevated but Free T4 is normal. Monitor on telemetry. night provider discussed anticoagulation with her and she would like to think about this a little more. she is on lovenox for her DVT as well. (5) cellulitis with Chronic venous stasis dermatitis of both lower extremities Conclusion/Plan: 1021, continue to improve, Swelling and erythema are almost resolved. Blood cultures is negative. We will switch antibiotics to p.o. on tomorrow. 1020, improved, Patient's lower extremity erythema, swelling are reduced. Wound culture is pending, blood culture is negative for bacteremia. We will continue intravenous antibiotics. Patient present Erythema, warmth, redness at her lower extremities. suspension she had cellulitis. pt has hx of cellulitis at her legs. start with ancef, blood culture, check lactic acid, specially pt has soft BP. (6)DVT 1021, we will change to Eliquis for 7 days With 10 mg twice daily. 1020, we will continue treated with Lovenox now then we will switch Eliquis on tomorrow Patient has left Lower extremity DVT, We will start with Lovenox. Patient has allergy with IV contrast. pt has No respiratory distress, no tachycardia or tachypnea, We will check D-dimer, hold angiogram of chest at this point. (7)pressure ulcers 1020, Surgeon recommendation Dressing change, We will follow with his recommendations With dressing change, Continue turn and reposition for skin care As well. 1020, we consulted with surgeon, Surgeon suggested no any procedure for patient at this time. We consulted with [facility], we will continue dressing change, will continue ten and reposition of patient, We will continue nurse skin care Patient Present severe decubitus ulcers at sacral area. We will consult with the wound care, and do wound culture, we consulted with surgeon (8) Hypokalemia We will replace this orally as she is being diuresed. We will also check a magnesium. (9) Generalized weakness We will consult PT and OT as well as social work to assist with disposition as she is willing to b/c to [facility] facility if needed (10) Asymptomatic bacteriuria Conclusion/Plan: She has denies dysuria. we will followup with UA culture. (11)Weakness Patient present Significant weakness, Difficulty to care for her self. Per patient's daughter report, patient's house has lots of stool, she can not go to clean. Nurse found pt has very dirty hair with possible contamination of stool in her hair. Patient and patient's daughter all agree patient could be discharged to SNF if she is qualified. Continue consult with PT and OT. - Current Meds Current Meds: Current Medications Generic Name Dose Route Start Last Admin Trade Name Freq PRN Reason Stop Dose Admin Acetaminophen 650 mg 01/02/21 21:23 01/03/21 23:06 Acetaminophen 325 Mg Tablet PO 650 mg Q4HR PRN Administration Pain 1 to 4 Aspirin 81 mg 01/03/21 09:00 01/05/21 09:45 Aspirin Chew 81 Mg Tablet PO 81 mg DAILY FELIBERTO Administration Atorvastatin Calcium 40 mg 01/03/21 21:00 01/04/21 21:47 Atorvastatin 40 Mg Tablet PO 40 mg QPM FELIBERTO Administration Enoxaparin Sodium 100 mg 01/03/21 21:00 01/05/21 09:45 Enoxaparin 100 Mg/Ml Syringe SUBQ 100 mg BID FELIBERTO Administration Nystatin 1 applic 01/02/21 23:00 01/05/21 09:46 Nystatin Powder 15 Gm TOP 1 applic BID FELIBERTO Administration Saccharomyces Boulardii 250 mg 01/03/21 17:00 01/05/21 09:45 Saccharomyces Boulardii 250 Mg Capsule PO 250 mg BIDWM FELIBERTO Administration Sodium Chloride 10 ml 01/03/21 01:00 01/05/21 09:45 Sodium Chloride Flush 0.9% 10 Ml Syringe IVP 10 ml 0100,0900,1700 FELIBERTO Administration - Lab Result Fish Bone Diagrams: 01/05/21 05:12 01/05/21 05:12 - Additional Planning My Orders: My Active Orders 01/04/21 11:35 Incentive Spirometry - RT [RC] TID Turn and Reposition [RC] Q2H 01/04/21 11:36 Miscellaenous Nursing Order [RC] DAILY 01/04/21 11:53 Code Status [OTHERS] Routine 01/04/21 15:20 Miscellaenous Nursing Order [RC] DAILY 01/05/21 14:00 ceFAZolin [Ancef] 2 gm Dextrose 5% [D5w] 100 ml IV Q8H Subjective - Subjective Patient Reports: Feeling Better Nursing Reports: No Complaints Objective Vital Signs: Vital Signs - 24 hr 01/04/21 01/04/21 01/04/21 11:37 15:59 21:00 Temperature 36.4 C L 36.7 C Heart Rate [ 100 60 79 Brachial] Heart Rate [ Monitoring electrodes] Respiratory 16 18 20 Rate Blood Pressure 81/45 L 94/59 L 91/47 L [Right Brachial artery] O2 Saturation 98 96 96 01/05/21 01/05/21 01/05/21 01:00 05:00 08:00 Temperature 36.5 C 36.7 C 36.6 C Heart Rate [ 72 70 71 Brachial] Heart Rate [ 71 Monitoring electrodes] Respiratory 16 16 18 Rate Blood Pressure 103/60 92/52 L 97/40 L [Right Brachial artery] O2 Saturation 96 97 100 Oxygen O2 Source Room air I&O (Last 24 Hrs): Intake and Output Totals x24h 01/03/21 01/04/21 01/05/21 23:59 23:59 23:59 Intake Total 1176 2610.000 970 Output Total 2900 550 150 Balance -1724 2060.000 820 General: Alert, Oriented x3, Cooperative, No acute distress HEENT: Atraumatic Neck: Supple Lymphatic: no adenopathy Neuro: Alert, Non Focal, Oriented Times 3 Cardiovascular: Regular rate, Normal S1, Normal S2 Respiratory: Chest non-tender, No respiratory distress Abdomen: Normal bowel sounds, Soft Extremities: Other (Lypodermatosclerosis present in her both foot, Erythema and swollen are nearly resolved) Comments/Notes: superficial of sacral area skin is breakdown with erythema - Results Results: Laboratory Results WBC 5.0 x10^3/uL (4.8-10.8) 01/05/21 05:12 RBC 4.18 10^6/uL (4.20-5.40) L 01/05/21 05:12 Hgb 12.0 g/dL (12.0-16.0) 01/05/21 05:12 Hct 38.2 % (37.0-47.0) 01/05/21 05:12 MCV 91.4 fL (81.0-99.0) 01/05/21 05:12 MCH 28.7 pg (27.0-31.0) 01/05/21 05:12 MCHC 31.4 g/dL (32.0-36.0) L 01/05/21 05:12 RDW 14.6 % (12.0-15.0) 01/05/21 05:12 Plt Count 106 10^3/uL (130-450) L 01/05/21 05:12 MPV 9.1 fL (7.9-10.8) 01/05/21 05:12 Neut # (Auto) 2.0 10^3/uL (1.5-6.6) 01/05/21 05:12 Lymph # (Auto) 2.2 10^3/uL (1.5-3.5) 01/05/21 05:12 [place] # (Auto) 0.6 10^3/uL (0.0-1.0) 01/05/21 05:12 Eos # (Auto) 0.1 10^3/uL (0.0-0.7) 01/05/21 05:12 Baso # (Auto) 0.0 10^3/uL (0.0-0.1) 01/05/21 05:12 Absolute Nucleated RBC 0.00 x10^3/uL 01/05/21 05:12 Nucleated RBC % 0.0 /100WBC 01/05/21 05:12 D-Dimer > 1050.0 ng/mL (200.0-255.0) H 01/03/21 12:59 Sodium 134 mmol/L (135-145) L 01/05/21 05:12 Potassium 3.3 mmol/L (3.5-5.0) L 01/05/21 05:12 Chloride 97 mmol/L (101-111) L 01/05/21 05:12 Carbon Dioxide 28 mmol/L (21-32) 01/05/21 05:12 Anion Gap 9.0 (6-13) 01/05/21 05:12 BUN 19 mg/dL (6-20) 01/05/21 05:12 Creatinine 0.8 mg/dL (0.4-1.0) 01/05/21 05:12 Estimated GFR (MDRD) 69 (>89) L 01/05/21 05:12 Glucose 97 mg/dL (70-100) 01/05/21 05:12 Estimat Average Glucose 100 mg/dL (70-100) 01/03/21 05:54 Hemoglobin A1c % 5.1 % (4.27-6.07) 01/03/21 05:54 Lactic Acid 2.0 mmol/L (0.5-2.2) 01/03/21 11:51 Calcium 8.2 mg/dL (8.5-10.3) L 01/05/21 05:12 Magnesium 1.8 mg/dL (1.7-2.8) 01/05/21 05:12 Total Bilirubin 1.7 mg/dL (0.2-1.0) H 01/02/21 19:38 AST 39 IU/L (10-42) 01/02/21 19:38 ALT 17 IU/L (10-60) 01/02/21 19:38 Alkaline Phosphatase 64 IU/L (42-121) 01/02/21 19:38 Total Creatine Kinase 202 IU/L (22-269) 01/02/21 19:38 Troponin I High Sens 198.1 ng/L (2.3-14.8) H* 01/03/21 18:20 B-Natriuretic Peptide 1239 pg/mL (5-100) H 01/04/21 05:54 Total Protein 7.3 g/dL (6.7-8.2) 01/02/21 19:38 Albumin 3.1 g/dL (3.2-5.5) L 01/02/21 19:38 Globulin 4.2 g/dL (2.1-4.2) 01/02/21 19:38 Albumin/Globulin Ratio 0.7 (1.0-2.2) L 01/02/21 19:38 Triglycerides 65 mg/dL (-149) 01/04/21 05:54 Cholesterol 109 mg/dL (-199) 01/04/21 05:54 LDL Cholesterol, Calc 66 mg/dL (-129) 01/04/21 05:54 VLDL Cholesterol 13 mg/dL 01/04/21 05:54 HDL Cholesterol 30 mg/dL (60-) L 01/04/21 05:54 LDL/HDL Ratio 2.2 (<4.4) 01/04/21 05:54 Cholesterol/HDL Ratio 3.6 (<4.4) 01/04/21 05:54 TSH 5.86 uIU/mL (0.34-5.60) H 01/02/21 20:51 Free T4 0.92 ng/dL (0.58-1.64) 01/03/21 05:54 Urine Color YELLOW 01/02/21 21:08 Urine Clarity SL. CLOUDY (CLEAR) 01/02/21 21:08 Urine pH 6.0 PH (5.0-7.5) 01/02/21 21:08 Ur Specific [place] 1.015 (1.002-1.030) 01/02/21 21:08 Urine Protein NEGATIVE mg/dL (NEGATIVE) 01/02/21 21:08 Urine Glucose (UA) NEGATIVE mg/dL (NEGATIVE) 01/02/21 21:08 Urine Ketones NEGATIVE mg/dL (NEGATIVE) 01/02/21 21:08 Urine Occult Blood TRACE-INTA (NEGATIVE) 01/02/21 21:08 Urine Nitrite POSITIVE (NEGATIVE) H 01/02/21 21:08 Urine Bilirubin NEGATIVE (NEGATIVE) 01/02/21 21:08 Urine Urobilinogen 1 (NORMAL) E.U./dL (NORMAL) 01/02/21 21:08 Ur Leukocyte Esterase SMALL (NEGATIVE) H 01/02/21 21:08 Urine RBC 0-5 /HPF (0-5) 01/02/21 21:08 Urine WBC 6-10 /HPF (0-5) H 01/02/21 21:08 Ur Squamous Epith Cells NONE SEEN (<= Few) 01/02/21 21:08 Urine Bacteria Many /HPF (None Seen) H 01/02/21 21:08 Ur Microscopic Review INDICATED 01/02/21 21:08 Urine Culture Comments INDICATED 01/02/21 21:08 Nasal Adenovirus (PCR) NOT DETECTED 01/02/21 19:38 Nasal B. parapertussis DNA (PCR) NOT DETECTED 01/02/21 19:38 Nasal Coronavir 229E PCR NOT DETECTED 01/02/21 19:38 Nasal Coronavir HKU1 PCR NOT DETECTED 01/02/21 19:38 Nasal Coronavir NL63 PCR NOT DETECTED 01/02/21 19:38 Nasal Coronavir OC43 PCR NOT DETECTED 01/02/21 19:38 Nasal Enterovir/Rhinovir PCR NOT DETECTED 01/02/21 19:38 Nasal Influenza B PCR NOT DETECTED 01/02/21 19:38 Nasal Influenza A PCR NOT DETECTED 01/02/21 19:38 Nasal Parainfluen 1 PCR NOT DETECTED 01/02/21 19:38 Nasal Parainfluen 2 PCR NOT DETECTED 01/02/21 19:38 Nasal Parainfluen 3 PCR NOT DETECTED 01/02/21 19:38 Nasal Parainfluen 4 PCR NOT DETECTED 01/02/21 19:38 Nasal RSV (PCR) NOT DETECTED 01/02/21 19:38 Nasal B.pertussis DNA PCR NOT DETECTED 01/02/21 19:38 Nasal C.pneumoniae (PCR) NOT DETECTED 01/02/21 19:38 Fidel Human Metapneumo PCR NOT DETECTED 01/02/21 19:38 Nasal M.pneumoniae (PCR) NOT DETECTED 01/02/21 19:38 Nasal SARS-CoV-2 (PCR) NOT DETECTED 01/02/21 19:38 ABX Reporting Has patient been on IV antibiotics over the past 48 hours?: Yes Current Medications - Current Medications Current Medications: Active Medications Acetaminophen (Acetaminophen 325 Mg Tablet) 650 mg PO Q4HR PRN PRN Reason: Pain 1 to 4 Last Admin: 01/03/21 23:06 Dose: 650 mg Documented by: Apixaban (Apixaban 5 Mg Tablet) 10 mg PO BID [facility] Stop: 01/12/21 10:30 Apixaban (Apixaban 5 Mg Tablet) 5 mg PO BID [facility] Aspirin (Aspirin Chew 81 Mg Tablet) 81 mg PO DAILY [facility] Last Admin: 01/05/21 09:45 Dose: 81 mg Documented by: Atorvastatin Calcium (Atorvastatin 40 Mg Tablet) 40 mg PO QPM [facility] Last Admin: 01/04/21 21:47 Dose: 40 mg Documented by: Cefazolin Sodium 2 gm/ (Dextrose) 100 mls @ 200 mls/hr IV Q8H [facility] Multi-Ingredient Ointment (Zinc Oxide 20% Oint 30 Gm Tube) 1 applic TOP PRN PRN PRN Reason: Skin Care Nystatin (Nystatin Powder 15 Gm) 1 applic TOP BID [facility] Last Admin: 01/05/21 09:46 Dose: 1 applic Documented by: Ondansetron HCl (Ondansetron Odt 4 Mg Tablet) 4 mg TL Q6HR PRN PRN Reason: Nausea / Vomiting Ondansetron HCl (Ondansetron 4 Mg/2 Ml Vial) 4 mg IVP Q6HR PRN PRN Reason: Nausea / Vomiting Saccharomyces Boulardii (Saccharomyces Boulardii 250 Mg Capsule) 250 mg PO BIDWM [facility] Last Admin: 01/05/21 09:45 Dose: 250 mg Documented by: Sodium Chloride (Sodium Chloride Flush 0.9% 10 Ml Syringe) 10 ml IVP PRN PRN PRN Reason: NEEDED PER PROVIDER ORDERS Sodium Chloride (Sodium Chloride Flush 0.9% 10 Ml Syringe) 10 ml IVP 0100,0900,1700 [facility] Last Admin: 01/05/21 09:45 Dose: 10 ml Documented by: Duloxetine HCl [Cymbalta] 60 mg PO DAILY 01/02/21
[2021-01-05] MEDS: DEXTROSE 5% IV SCH ×2 (14:11→21:27)
[2021-01-05] MEDS: CEFAZOLIN IV SCH ×2 (14:11→21:27)
[2021-01-05] MEDS: SODIUM CHLORIDE FLUSH 0.9% 10 ML SYRINGE IVP PRN (21:20)
[2021-01-05] MEDS: APIXABAN 5 MG TABLET PO SCH (21:26)
[2021-01-05] MEDS: ATORVASTATIN 40 MG TABLET PO SCH (21:26)
[2021-01-06 05:45] LABS: BASOPHILS % (AUTO) 0.7 %; EOSINOPHILS # (AUTO) 0.1 10^3/uL (0.0-0.7); EOSINOPHILS % (AUTO) 2.4 %; HCT - HEMATOCRIT 37.8 % (37.0-47.0); HGB - HEMOGLOBIN 11.9 g/dL (12.0-16.0); LYMPHOCYTES # (AUTO) 1.8 10^3/uL (1.5-3.5); MEAN CORPUSCULAR HEMOGLOBIN 29.1 pg (27.0-31.0); MEAN CORPUSCULAR HGB CONC 31.5 g/dL (32.0-36.0); MEAN CORPUSCULAR VOLUME 92.4 fL (81.0-99.0); MEAN PLATELET VOLUME 9.3 fL (7.9-10.8); MONOCYTES # (AUTO) 0.6 10^3/uL (0.0-1.0); MONOCYTES % (AUTO) 12.4 %; NEUTROPHILS % (AUTO) 44.1 %; PLT - PLATELET COUNT 107 10^3/uL (130-450); RED BLOOD COUNT 4.09 10^6/uL (4.20-5.40); RED CELL DISTRIBUTION WIDTH 14.6 % (12.0-15.0); WHITE BLOOD COUNT 4.5 x10^3/uL (4.8-10.8)
[2021-01-06 05:53] LABS: CALCIUM 8.2 mg/dL (8.5-10.3); CREATININE 0.8 mg/dL (0.4-1.0); MAGNESIUM 1.9 mg/dL (1.7-2.8); POTASSIUM 3.6 mmol/L (3.5-5.0)
[2021-01-06] MEDS: CEFAZOLIN IV SCH ×3 (05:56→21:50)
[2021-01-06] MEDS: DEXTROSE 5% IV SCH ×3 (05:56→21:50)
[2021-01-06] MEDS: ASPIRIN CHEW 81 MG TABLET PO SCH (09:04)
[2021-01-06] MEDS: MULTIVITAMIN W/MINERALS TABLET PO SCH (09:04)
[2021-01-06] MEDS: SACCHAROMYCES BOULARDII 250 MG CAPSULE PO SCH ×2 (09:04→16:17)
[2021-01-06] MEDS: APIXABAN 5 MG TABLET PO SCH ×2 (09:04→21:44)
[2021-01-06] MEDS: SODIUM CHLORIDE FLUSH 0.9% 10 ML SYRINGE IVP SCH ×3 (09:05→23:41)
[2021-01-06] MEDS: NYSTATIN POWDER 15 GM TOP SCH ×2 (09:10→21:29)
--- NOTE | 2021-01-06 11:07 | PROVIDER PROGRESS NOTE ---
Assessment/Plan - Problem List (1) Systolic heart failure Assessment/Plan: 01/06 Patient has no respiratory distress, She had a 95% oxygen saturation on room air. We will continue hold metoprolol, Lasix on today for her soft blood pressure. pt is pending for d/c to SNF, consult with social contact worker Disposition planning. 01/05 Patient reported she feels good, Patient has no respiratory distress. Because the patient still had soft blood pressure, We will continue hold metoprolol, Lasix. 01/04 Echo show patient had 40 to 45% of EF. This is new to pt. Because of patient's hypotension, will hold Lasix, metoprolol, Continue ow-sodium diet, Strict I's and O's and daily weights. Continue telemetry and vital signs monitor. 01/03 pt present generalized weakness, Bilateral lower extremity edema, Signific ant elevated BNP, We will finish echo study, continue Lasix, Low-sodium diet, Strict I's and O's and daily weights. Continue telemetry and vital signs monitor (2)hypotension 01-06 improved. Patient is asymptomatic, We will continue vital signs monitor, continue hold Lasix and metoprolol now. 1021 Improved, Systolic blood pressure is 97. Patient report she usually run lo w Blood pressure for her for family. Patient is asymptomatic. We will hold patient blood pressure medicine, Continue vital signs monitor. 01/04 vital show pt has hypotension. pt report she has hx of hypotension and her family has the similar hx. Patient is asymptomatic, patient feed by herself, She had appropriate conversation with me, She denies dizziness, lightheaded, chest pain. We will hold Blood pressure medicine metoprolol, Lasix now. order 500cc NS IV bolus, continue closely vital monitor. (3) elevated troponin 1021, Patient denying chest pain, Troponin now is treaded down, We will switch Lovenox to Eliquis. Continue telemetry and vital signs monitor 01/04 trended down, pt denies chest pain, continue Lovenox for total 48 hours, then switch to Eliquis. Initial troponin was 180 and recheck one hour later was 203, Continue elevated to 300. Her EKG Show V4 V5 st segment depression, Soft blood pressure, although pt denies chest pain. We have no patient previous EKG compared. At this time we will continue monitor troponin, start with Lovenox, Lipitor, Beta block, adjust meds dosage as pt's HR and BP measure. Unfortunately we have no provider do stre ss test in the inpatient, We will finish echo study, we advise the patient to have stress test as outpatient. (4) Afib 1021, HR Is controlled at 71. We will continue Eliquis. 10-20, HR is 90-100. Because the patient hypotension, metoprolol is on hold. We may give patient digoxin if patient's a fibrillation is uncontrolled. Continue Lovenox now, Continue event staff She is found to be in a fibrillation which appears to be a new diagnosis. She is rate controlled we will start her on low-dose metoprolol given she is currently normotensive. TSH is elevated but Free T4 is normal. Monitor on telemetry. night provider discussed anticoagulation with her and she would like to think about this a little more. she is on lovenox for her DVT as well. (5) cellulitis with Chronic venous stasis dermatitis of both lower extremities Conclusion/Plan: 01-06, improved. WBC is normal arrange, Blood culture is negative for bacteremia, continue anceft IV 1021, continue to improve, Swelling and erythema are almost resolved. Blood cultures is negative. We will switch antibiotics to p.o. on tomorrow. 1020, improved, Patient's lower extremity erythema, swelling are reduced. Wound culture is pending, blood culture is negative for bacteremia. We will continue intravenous antibiotics. Patient present Erythema, warmth, redness at her lower extremities. suspension she had cellulitis. pt has hx of cellulitis at her legs. start with ancef, blood culture, check lactic acid, specially pt has soft BP. (6)DVT 1021, we will change to Eliquis for 7 days With 10 mg twice daily. 1020, we will continue treated with Lovenox now then we will switch Eliquis on tomorrow Patient has left Lower extremity DVT, We will start with Lovenox. Patient has allergy with IV contrast. pt has No respiratory distress, no tachycardia or tachypnea, We will check D-dimer, hold angiogram of chest at this point. (7)pressure ulcers 10-, Improved, We will continue daily dressing change, Plan discharge patient to SNF, continue wound care, patient may follow-up wound care as outpatient 1020, Surgeon recommendation Dressing change, We will follow with his recommendations With dressing change, Continue turn and reposition for skin care As well. 1020, we consulted with surgeon, Surgeon suggested no any procedure for patient at this time. We consulted with [facility], we will continue dressing change, will continue ten and reposition of patient, We will continue nurse skin care Patient Present severe decubitus ulcers at sacral area. We will consult with the wound care, and do wound culture, we consulted with surgeon (8) Hypokalemia We will replace this orally as she is being diuresed. We will also check a magnesium. (9) Asymptomatic bacteriuria Conclusion/Plan: She has denies dysuria. we will followup with UA culture. (10)generalized Weakness 01/06 Continue physical therapist occupational therapist consult, Plan discharge patient to SNF, Consult with social work for disposition planning. Patient present Significant weakness, Difficulty to care for her self. Per patient's daughter report, patient's house has lots of stool, she can not go to clean. Nurse found pt has very dirty hair with possible contamination of stool in her hair. Patient and patient's daughter all agree patient could be discharged to SNF if she is qualified. Continue consult with PT and OT. - Current Meds Current Meds: Current Medications Generic Name Dose Route Start Last Admin Trade Name Freq PRN Reason Stop Dose Admin Acetaminophen 650 mg 01/02/21 21:23 01/03/21 23:06 Acetaminophen 325 Mg Tablet PO 650 mg Q4HR PRN Administration Pain 1 to 4 Apixaban 10 mg 01/05/21 21:00 01/06/21 09:04 Apixaban 5 Mg Tablet PO 01/12/21 10:30 10 mg BID FELIBERTO Administration Aspirin 81 mg 01/03/21 09:00 01/06/21 09:04 Aspirin Chew 81 Mg Tablet PO 81 mg DAILY FELIBERTO Administration Atorvastatin Calcium 40 mg 01/03/21 21:00 01/05/21 21:26 Atorvastatin 40 Mg Tablet PO 40 mg QPM FELIBERTO Administration Cefazolin Sodium 2 gm/ 100 mls @ 200 mls/hr 01/05/21 14:00 01/06/21 06:36 Dextrose IV Infused Q8H FELIBERTO Infusion Multivitamins/Minerals 1 tab 01/06/21 09:00 01/06/21 09:04 Multivitamin W/Minerals Tablet PO 1 tab DAILYWM FELIBERTO Administration Nystatin 1 applic 01/02/21 23:00 01/06/21 09:10 Nystatin Powder 15 Gm TOP Not Given BID FELIBERTO Saccharomyces Boulardii 250 mg 01/03/21 17:00 01/06/21 09:04 Saccharomyces Boulardii 250 Mg Capsule PO 250 mg BIDWM FELIBERTO Administration Sodium Chloride 10 ml 01/02/21 21:23 01/05/21 21:20 Sodium Chloride Flush 0.9% 10 Ml Syringe IVP 10 ml PRN PRN Administration NEEDED PER PROVIDER ORDERS Sodium Chloride 10 ml 01/03/21 01:00 01/06/21 09:05 Sodium Chloride Flush 0.9% 10 Ml Syringe IVP 10 ml 0100,0900,1700 FELIBERTO Administration - Lab Result Fish Bone Diagrams: 01/06/21 04:50 01/06/21 04:50 - Additional Planning My Orders: My Active Orders 01/05/21 14:00 ceFAZolin [Ancef] 2 gm Dextrose 5% [D5w] 100 ml IV Q8H 01/05/21 21:00 Apixaban [Eliquis] 10 mg PO BID 01/06/21 09:00 Multivitamin W/Minerals [Theragran M] 1 tab PO DAILYWM 01/12/21 21:00 Apixaban [Eliquis] 5 mg PO BID Subjective - Subjective Patient Reports: Feeling Better, Resting Comfortably Objective Vital Signs: Vital Signs - 24 hr 01/05/21 01/05/21 01/05/21 11:40 11:45 15:33 Temperature 36.4 C L 36.5 C Heart Rate [ 75 Apical] Heart Rate [ 71 Brachial] Heart Rate [ 61 Supine] Respiratory 18 16 Rate Blood Pressure [Left Brachial artery] Blood Pressure 94/53 L 85/36 L [Right Brachial artery] Blood Pressure 94/53 L [Supine] O2 Saturation 99 96 01/05/21 01/05/21 01/06/21 21:44 23:57 05:00 Temperature 36.7 C 36.5 C 36.5 C Heart Rate [ 75 82 Apical] Heart Rate [ 77 81 Brachial] Heart Rate [ Supine] Respiratory 16 16 16 Rate Blood Pressure [Left Brachial artery] Blood Pressure 94/44 L 98/37 L 94/50 L [Right Brachial artery] Blood Pressure [Supine] O2 Saturation 96 95 95 01/06/21 01/06/21 07:42 08:47 Temperature 36.7 C Heart Rate [ Apical] Heart Rate [ 81 Brachial] Heart Rate [ Supine] Respiratory 20 Rate Blood Pressure 111/37 L [Left Brachial artery] Blood Pressure 78/42 L 93/45 L [Right Brachial artery] Blood Pressure [Supine] O2 Saturation 95 Oxygen O2 Source Room air I&O (Last 24 Hrs): Intake and Output Totals x24h 01/04/21 01/05/21 01/06/21 23:59 23:59 23:59 Intake Total 2610.000 2290 700 Output Total 550 950 500 Balance 2060.000 1340 200 General: Alert, Oriented x3, Cooperative, No acute distress HEENT: Atraumatic Neck: Supple Lymphatic: no adenopathy Neuro: Alert, Non Focal, Oriented Times 3 Cardiovascular: Regular rate, Normal S1, Normal S2 Respiratory: Chest non-tender, No respiratory distress, Breath sounds nml Abdomen: Normal bowel sounds, Soft Extremities: Other (Lypodermatosclerosis at bilateral lower extremities and foot. No tenderness, slight erythema as her baseline on her bilateral lower extremities and foot,) Comments/Notes: ulcer at sacral area appear improved, slight reduced erythema. - Results Results: Laboratory Results WBC 4.5 x10^3/uL (4.8-10.8) L 01/06/21 04:50 RBC 4.09 10^6/uL (4.20-5.40) L 01/06/21 04:50 Hgb 11.9 g/dL (12.0-16.0) L 01/06/21 04:50 Hct 37.8 % (37.0-47.0) 01/06/21 04:50 MCV 92.4 fL (81.0-99.0) 01/06/21 04:50 MCH 29.1 pg (27.0-31.0) 01/06/21 04:50 MCHC 31.5 g/dL (32.0-36.0) L 01/06/21 04:50 RDW 14.6 % (12.0-15.0) 01/06/21 04:50 Plt Count 107 10^3/uL (130-450) L 01/06/21 04:50 MPV 9.3 fL (7.9-10.8) 01/06/21 04:50 Neut # (Auto) 2.0 10^3/uL (1.5-6.6) 01/06/21 04:50 Lymph # (Auto) 1.8 10^3/uL (1.5-3.5) 01/06/21 04:50 [place] # (Auto) 0.6 10^3/uL (0.0-1.0) 01/06/21 04:50 Eos # (Auto) 0.1 10^3/uL (0.0-0.7) 01/06/21 04:50 Baso # (Auto) 0.0 10^3/uL (0.0-0.1) 01/06/21 04:50 Absolute Nucleated RBC 0.00 x10^3/uL 01/06/21 04:50 Nucleated RBC % 0.0 /100WBC 01/06/21 04:50 D-Dimer > 1050.0 ng/mL (200.0-255.0) H 01/03/21 12:59 Sodium 135 mmol/L (135-145) 01/06/21 04:50 Potassium 3.6 mmol/L (3.5-5.0) 01/06/21 04:50 Chloride 99 mmol/L (101-111) L 01/06/21 04:50 Carbon Dioxide 28 mmol/L (21-32) 01/06/21 04:50 Anion Gap 8.0 (6-13) 01/06/21 04:50 BUN 19 mg/dL (6-20) 01/06/21 04:50 Creatinine 0.8 mg/dL (0.4-1.0) 01/06/21 04:50 Estimated GFR (MDRD) 69 (>89) L 01/06/21 04:50 Glucose 99 mg/dL (70-100) 01/06/21 04:50 Estimat Average Glucose 100 mg/dL (70-100) 01/03/21 05:54 Hemoglobin A1c % 5.1 % (4.27-6.07) 01/03/21 05:54 Lactic Acid 2.0 mmol/L (0.5-2.2) 01/03/21 11:51 Calcium 8.2 mg/dL (8.5-10.3) L 01/06/21 04:50 Magnesium 1.9 mg/dL (1.7-2.8) 01/06/21 04:50 Total Bilirubin 1.7 mg/dL (0.2-1.0) H 01/02/21 19:38 AST 39 IU/L (10-42) 01/02/21 19:38 ALT 17 IU/L (10-60) 01/02/21 19:38 Alkaline Phosphatase 64 IU/L (42-121) 01/02/21 19:38 Total Creatine Kinase 202 IU/L (22-269) 01/02/21 19:38 Troponin I High Sens 198.1 ng/L (2.3-14.8) H* 01/03/21 18:20 B-Natriuretic Peptide 1239 pg/mL (5-100) H 01/04/21 05:54 Total Protein 7.3 g/dL (6.7-8.2) 01/02/21 19:38 Albumin 3.1 g/dL (3.2-5.5) L 01/02/21 19:38 Globulin 4.2 g/dL (2.1-4.2) 01/02/21 19:38 Albumin/Globulin Ratio 0.7 (1.0-2.2) L 01/02/21 19:38 Triglycerides 65 mg/dL (-149) 01/04/21 05:54 Cholesterol 109 mg/dL (-199) 01/04/21 05:54 LDL Cholesterol, Calc 66 mg/dL (-129) 01/04/21 05:54 VLDL Cholesterol 13 mg/dL 01/04/21 05:54 HDL Cholesterol 30 mg/dL (60-) L 01/04/21 05:54 LDL/HDL Ratio 2.2 (<4.4) 01/04/21 05:54 Cholesterol/HDL Ratio 3.6 (<4.4) 01/04/21 05:54 TSH 5.86 uIU/mL (0.34-5.60) H 01/02/21 20:51 Free T4 0.92 ng/dL (0.58-1.64) 01/03/21 05:54 Urine Color YELLOW 01/02/21 21:08 Urine Clarity SL. CLOUDY (CLEAR) 01/02/21 21:08 Urine pH 6.0 PH (5.0-7.5) 01/02/21 21:08 Ur Specific [place] 1.015 (1.002-1.030) 01/02/21 21:08 Urine Protein NEGATIVE mg/dL (NEGATIVE) 01/02/21 21:08 Urine Glucose (UA) NEGATIVE mg/dL (NEGATIVE) 01/02/21 21:08 Urine Ketones NEGATIVE mg/dL (NEGATIVE) 01/02/21 21:08 Urine Occult Blood TRACE-INTA (NEGATIVE) 01/02/21 21:08 Urine Nitrite POSITIVE (NEGATIVE) H 01/02/21 21:08 Urine Bilirubin NEGATIVE (NEGATIVE) 01/02/21 21:08 Urine Urobilinogen 1 (NORMAL) E.U./dL (NORMAL) 01/02/21 21:08 Ur Leukocyte Esterase SMALL (NEGATIVE) H 01/02/21 21:08 Urine RBC 0-5 /HPF (0-5) 01/02/21 21:08 Urine WBC 6-10 /HPF (0-5) H 01/02/21 21:08 Ur Squamous Epith Cells NONE SEEN (<= Few) 01/02/21 21:08 Urine Bacteria Many /HPF (None Seen) H 01/02/21 21:08 Ur Microscopic Review INDICATED 01/02/21 21:08 Urine Culture Comments INDICATED 01/02/21 21:08 Nasal Adenovirus (PCR) NOT DETECTED 01/02/21 19:38 Nasal B. parapertussis DNA (PCR) NOT DETECTED 01/02/21 19:38 Nasal Coronavir 229E PCR NOT DETECTED 01/02/21 19:38 Nasal Coronavir HKU1 PCR NOT DETECTED 01/02/21 19:38 Nasal Coronavir NL63 PCR NOT DETECTED 01/02/21 19:38 Nasal Coronavir OC43 PCR NOT DETECTED 01/02/21 19:38 Nasal Enterovir/Rhinovir PCR NOT DETECTED 01/02/21 19:38 Nasal Influenza B PCR NOT DETECTED 01/02/21 19:38 Nasal Influenza A PCR NOT DETECTED 01/02/21 19:38 Nasal Parainfluen 1 PCR NOT DETECTED 01/02/21 19:38 Nasal Parainfluen 2 PCR NOT DETECTED 01/02/21 19:38 Nasal Parainfluen 3 PCR NOT DETECTED 01/02/21 19:38 Nasal Parainfluen 4 PCR NOT DETECTED 01/02/21 19:38 Nasal RSV (PCR) NOT DETECTED 01/02/21 19:38 Nasal B.pertussis DNA PCR NOT DETECTED 01/02/21 19:38 Nasal C.pneumoniae (PCR) NOT DETECTED 01/02/21 19:38 Fidel Human Metapneumo PCR NOT DETECTED 01/02/21 19:38 Nasal M.pneumoniae (PCR) NOT DETECTED 01/02/21 19:38 Nasal SARS-CoV-2 (PCR) NOT DETECTED 01/02/21 19:38 ABX Reporting Has patient been on IV antibiotics over the past 48 hours?: Yes Current Medications - Current Medications Current Medications: Active Medications Acetaminophen (Acetaminophen 325 Mg Tablet) 650 mg PO Q4HR PRN PRN Reason: Pain 1 to 4 Last Admin: 01/03/21 23:06 Dose: 650 mg Documented by: Apixaban (Apixaban 5 Mg Tablet) 10 mg PO BID [facility] Stop: 01/12/21 10:30 Last Admin: 01/06/21 09:04 Dose: 10 mg Documented by: Apixaban (Apixaban 5 Mg Tablet) 5 mg PO BID [facility] Aspirin (Aspirin Chew 81 Mg Tablet) 81 mg PO DAILY [facility] Last Admin: 01/06/21 09:04 Dose: 81 mg Documented by: Atorvastatin Calcium (Atorvastatin 40 Mg Tablet) 40 mg PO QPM [facility] Last Admin: 01/05/21 21:26 Dose: 40 mg Documented by: Cefazolin Sodium 2 gm/ (Dextrose) 100 mls @ 200 mls/hr IV Q8H [facility] Last Infusion: 01/06/21 06:36 Dose: Infused Documented by: Multi-Ingredient Ointment (Zinc Oxide 20% Oint 30 Gm Tube) 1 applic TOP PRN PRN PRN Reason: Skin Care Multivitamins/Minerals (Multivitamin W/Minerals Tablet) 1 tab PO DAILYWM [facility] Last Admin: 01/06/21 09:04 Dose: 1 tab Documented by: Nystatin (Nystatin Powder 15 Gm) 1 applic TOP BID [facility] Last Admin: 01/06/21 09:10 Dose: Not Given Documented by: Ondansetron HCl (Ondansetron Odt 4 Mg Tablet) 4 mg TL Q6HR PRN PRN Reason: Nausea / Vomiting Ondansetron HCl (Ondansetron 4 Mg/2 Ml Vial) 4 mg IVP Q6HR PRN PRN Reason: Nausea / Vomiting Polyethylene Glycol (Polyethylene Glycol 3350 17 Gm Packet) 17 gm PO DAILY [facility] Saccharomyces Boulardii (Saccharomyces Boulardii 250 Mg Capsule) 250 mg PO BIDWM [facility] Last Admin: 01/06/21 09:04 Dose: 250 mg Documented by: Sodium Chloride (Sodium Chloride Flush 0.9% 10 Ml Syringe) 10 ml IVP PRN PRN PRN Reason: NEEDED PER PROVIDER ORDERS Last Admin: 01/05/21 21:20 Dose: 10 ml Documented by: Sodium Chloride (Sodium Chloride Flush 0.9% 10 Ml Syringe) 10 ml IVP 0100,0900,1700 [facility] Last Admin: 01/06/21 09:05 Dose: 10 ml Documented by: Duloxetine HCl [Cymbalta] 60 mg PO DAILY 01/02/21
[2021-01-06] MEDS: polyethylene glycoL 3350 17 GM PACKET PO SCH (13:29)
[2021-01-06] MEDS: SODIUM CHLORIDE FLUSH 0.9% 10 ML SYRINGE IVP PRN ×2 (13:35→21:46)
[2021-01-06] MEDS: ATORVASTATIN 40 MG TABLET PO SCH (21:43)
[2021-01-07] MEDS: CEFAZOLIN IV SCH (05:56)
[2021-01-07] MEDS: DEXTROSE 5% IV SCH (05:56)
[2021-01-07 06:37] LABS: BASOPHILS % (AUTO) 0.6 %; EOSINOPHILS # (AUTO) 0.2 10^3/uL (0.0-0.7); EOSINOPHILS % (AUTO) 3.4 %; HGB - HEMOGLOBIN 13.7 g/dL (12.0-16.0); LYMPHOCYTES # (AUTO) 1.8 10^3/uL (1.5-3.5); LYMPHOCYTES % (AUTO) 35.4 %; MEAN CORPUSCULAR HEMOGLOBIN 29.1 pg (27.0-31.0); MEAN CORPUSCULAR HGB CONC 31.1 g/dL (32.0-36.0); MEAN CORPUSCULAR VOLUME 93.4 fL (81.0-99.0); MEAN PLATELET VOLUME 9.6 fL (7.9-10.8); MONOCYTES # (AUTO) 0.5 10^3/uL (0.0-1.0); MONOCYTES % (AUTO) 9.1 %; NEUTROPHILS # (AUTO) 2.6 10^3/uL (1.5-6.6); NEUTROPHILS % (AUTO) 50.9 %; PLT - PLATELET COUNT 120 10^3/uL (130-450); RED BLOOD COUNT 4.71 10^6/uL (4.20-5.40); RED CELL DISTRIBUTION WIDTH 14.6 % (12.0-15.0); WHITE BLOOD COUNT 5.1 x10^3/uL (4.8-10.8)
[2021-01-07 06:38] LABS: SLIDE REVIEW? Indicated
[2021-01-07 06:44] LABS: CALCIUM 8.6 mg/dL (8.5-10.3); CREATININE 0.8 mg/dL (0.4-1.0); MAGNESIUM 1.9 mg/dL (1.7-2.8); POTASSIUM 3.6 mmol/L (3.5-5.0)
[2021-01-07 06:55] LABS: PLATELET ESTIMATE, MANUAL DECREASED (<130,000) (NORMAL); PLATELET MORPHOLOGY NORMAL APPEARANCE (NORMAL); RBC MORPHOLOGY (MULTIPLE) NORMAL APPEARANCE (NORMAL); WBC MORPHOLOGY (MULTIPLE) NORMAL APPEARANCE (NORMAL)
--- NOTE | 2021-01-07 08:45 | PROVIDER PROGRESS NOTE ---
Assessment/Plan - Current Meds Current Meds: Current Medications Generic Name Dose Route Start Last Admin Trade Name Freq PRN Reason Stop Dose Admin Acetaminophen 650 mg 01/02/21 21:23 01/03/21 23:06 Acetaminophen 325 Mg Tablet PO 650 mg Q4HR PRN Administration Pain 1 to 4 Apixaban 10 mg 01/05/21 21:00 01/06/21 21:44 Apixaban 5 Mg Tablet PO 01/12/21 10:30 10 mg BID FELIBERTO Administration Aspirin 81 mg 01/03/21 09:00 01/06/21 09:04 Aspirin Chew 81 Mg Tablet PO 81 mg DAILY FELIBERTO Administration Atorvastatin Calcium 40 mg 01/03/21 21:00 01/06/21 21:43 Atorvastatin 40 Mg Tablet PO 40 mg QPM FELIBERTO Administration Cefazolin Sodium 2 gm/ 100 mls @ 200 mls/hr 01/05/21 14:00 01/07/21 06:33 Dextrose IV Infused Q8H FELIBERTO Infusion Multivitamins/Minerals 1 tab 01/06/21 09:00 01/06/21 09:04 Multivitamin W/Minerals Tablet PO 1 tab DAILYWM FELIBERTO Administration Nystatin 1 applic 01/02/21 23:00 01/06/21 21:29 Nystatin Powder 15 Gm TOP 1 applic BID FELIBERTO Administration Polyethylene Glycol 17 gm 01/06/21 09:00 01/06/21 13:29 Polyethylene Glycol 3350 17 Gm Packet PO Not Given DAILY FELIBERTO Saccharomyces Boulardii 250 mg 01/03/21 17:00 01/06/21 16:17 Saccharomyces Boulardii 250 Mg Capsule PO 250 mg BIDWM FELIBERTO Administration Sodium Chloride 10 ml 01/02/21 21:23 01/06/21 21:46 Sodium Chloride Flush 0.9% 10 Ml Syringe IVP 10 ml PRN PRN Administration NEEDED PER PROVIDER ORDERS Sodium Chloride 10 ml 01/03/21 01:00 01/06/21 23:41 Sodium Chloride Flush 0.9% 10 Ml Syringe IVP 10 ml 0100,0900,1700 FELIBERTO Administration - Lab Result Fish Bone Diagrams: 01/07/21 06:05 01/07/21 06:05 Objective Vital Signs: Vital Signs - 24 hr 01/06/21 01/06/21 01/06/21 08:47 13:00 15:58 Temperature 36.6 C 36.7 C Heart Rate [ 78 66 Brachial] Heart Rate [ Monitoring electrodes] Respiratory 20 18 Rate Blood Pressure 111/37 L [Left Brachial artery] Blood Pressure 93/45 L 91/43 L 102/58 L [Right Brachial artery] O2 Saturation 96 93 01/06/21 01/06/21 01/07/21 21:00 23:35 05:00 Temperature 36.6 C 36.6 C 36.5 C Heart Rate [ 74 58 L Brachial] Heart Rate [ 79 Monitoring electrodes] Respiratory 16 16 16 Rate Blood Pressure [Left Brachial artery] Blood Pressure 104/46 L 105/45 L 115/39 L [Right Brachial artery] O2 Saturation 100 96 96 01/07/21 07:53 Temperature 36.5 C Heart Rate [ 84 Brachial] Heart Rate [ Monitoring electrodes] Respiratory 20 Rate Blood Pressure [Left Brachial artery] Blood Pressure 135/65 H [Right Brachial artery] O2 Saturation 98 Oxygen O2 Source Room air I&O (Last 24 Hrs): Intake and Output Totals x24h 01/05/21 01/06/21 01/07/21 23:59 23:59 23:59 Intake Total 2290 1440 100 Output Total 950 1050 750 Balance 1340 390 -650 - Results Results: Laboratory Results WBC 5.1 x10^3/uL (4.8-10.8) 01/07/21 06:05 RBC 4.71 10^6/uL (4.20-5.40) 01/07/21 06:05 Hgb 13.7 g/dL (12.0-16.0) 01/07/21 06:05 Hct 44.0 % (37.0-47.0) 01/07/21 06:05 MCV 93.4 fL (81.0-99.0) 01/07/21 06:05 MCH 29.1 pg (27.0-31.0) 01/07/21 06:05 MCHC 31.1 g/dL (32.0-36.0) L 01/07/21 06:05 RDW 14.6 % (12.0-15.0) 01/07/21 06:05 Plt Count 120 10^3/uL (130-450) L 01/07/21 06:05 MPV 9.6 fL (7.9-10.8) 01/07/21 06:05 Neut # (Auto) 2.6 10^3/uL (1.5-6.6) 01/07/21 06:05 Lymph # (Auto) 1.8 10^3/uL (1.5-3.5) 01/07/21 06:05 [place] # (Auto) 0.5 10^3/uL (0.0-1.0) 01/07/21 06:05 Eos # (Auto) 0.2 10^3/uL (0.0-0.7) 01/07/21 06:05 Baso # (Auto) 0.0 10^3/uL (0.0-0.1) 01/07/21 06:05 Absolute Nucleated RBC 0.00 x10^3/uL 01/07/21 06:05 Nucleated RBC % 0.0 /100WBC 01/07/21 06:05 Manual Slide Review Indicated 01/07/21 06:05 WBC Morphology NORMAL APPEARANCE (NORMAL) 01/07/21 06:05 Platelet Estimate DECREASED (<130,000) (NORMAL) 01/07/21 06:05 Platelet Morphology NORMAL APPEARANCE (NORMAL) 01/07/21 06:05 RBC Morph Micro Appear NORMAL APPEARANCE (NORMAL) 01/07/21 06:05 D-Dimer > 1050.0 ng/mL (200.0-255.0) H 01/03/21 12:59 Sodium 135 mmol/L (135-145) 01/07/21 06:05 Potassium 3.6 mmol/L (3.5-5.0) 01/07/21 06:05 Chloride 97 mmol/L (101-111) L 01/07/21 06:05 Carbon Dioxide 31 mmol/L (21-32) 01/07/21 06:05 Anion Gap 7.0 (6-13) 01/07/21 06:05 BUN 19 mg/dL (6-20) 01/07/21 06:05 Creatinine 0.8 mg/dL (0.4-1.0) 01/07/21 06:05 Estimated GFR (MDRD) 69 (>89) L 01/07/21 06:05 Glucose 94 mg/dL (70-100) 01/07/21 06:05 Estimat Average Glucose 100 mg/dL (70-100) 01/03/21 05:54 Hemoglobin A1c % 5.1 % (4.27-6.07) 01/03/21 05:54 Lactic Acid 2.0 mmol/L (0.5-2.2) 01/03/21 11:51 Calcium 8.6 mg/dL (8.5-10.3) 01/07/21 06:05 Magnesium 1.9 mg/dL (1.7-2.8) 01/07/21 06:05 Total Bilirubin 1.7 mg/dL (0.2-1.0) H 01/02/21 19:38 AST 39 IU/L (10-42) 01/02/21 19:38 ALT 17 IU/L (10-60) 01/02/21 19:38 Alkaline Phosphatase 64 IU/L (42-121) 01/02/21 19:38 Total Creatine Kinase 202 IU/L (22-269) 01/02/21 19:38 Troponin I High Sens 198.1 ng/L (2.3-14.8) H* 01/03/21 18:20 B-Natriuretic Peptide 1239 pg/mL (5-100) H 01/04/21 05:54 Total Protein 7.3 g/dL (6.7-8.2) 01/02/21 19:38 Albumin 3.1 g/dL (3.2-5.5) L 01/02/21 19:38 Globulin 4.2 g/dL (2.1-4.2) 01/02/21 19:38 Albumin/Globulin Ratio 0.7 (1.0-2.2) L 01/02/21 19:38 Triglycerides 65 mg/dL (-149) 01/04/21 05:54 Cholesterol 109 mg/dL (-199) 01/04/21 05:54 LDL Cholesterol, Calc 66 mg/dL (-129) 01/04/21 05:54 VLDL Cholesterol 13 mg/dL 01/04/21 05:54 HDL Cholesterol 30 mg/dL (60-) L 01/04/21 05:54 LDL/HDL Ratio 2.2 (<4.4) 01/04/21 05:54 Cholesterol/HDL Ratio 3.6 (<4.4) 01/04/21 05:54 TSH 5.86 uIU/mL (0.34-5.60) H 01/02/21 20:51 Free T4 0.92 ng/dL (0.58-1.64) 01/03/21 05:54 Urine Color YELLOW 01/02/21 21:08 Urine Clarity SL. CLOUDY (CLEAR) 01/02/21 21:08 Urine pH 6.0 PH (5.0-7.5) 01/02/21 21:08 Ur Specific [place] 1.015 (1.002-1.030) 01/02/21 21:08 Urine Protein NEGATIVE mg/dL (NEGATIVE) 01/02/21 21:08 Urine Glucose (UA) NEGATIVE mg/dL (NEGATIVE) 01/02/21 21:08 Urine Ketones NEGATIVE mg/dL (NEGATIVE) 01/02/21 21:08 Urine Occult Blood TRACE-INTA (NEGATIVE) 01/02/21 21:08 Urine Nitrite POSITIVE (NEGATIVE) H 01/02/21 21:08 Urine Bilirubin NEGATIVE (NEGATIVE) 01/02/21 21:08 Urine Urobilinogen 1 (NORMAL) E.U./dL (NORMAL) 01/02/21 21:08 Ur Leukocyte Esterase SMALL (NEGATIVE) H 01/02/21 21:08 Urine RBC 0-5 /HPF (0-5) 01/02/21 21:08 Urine WBC 6-10 /HPF (0-5) H 01/02/21 21:08 Ur Squamous Epith Cells NONE SEEN (<= Few) 01/02/21 21:08 Urine Bacteria Many /HPF (None Seen) H 01/02/21 21:08 Ur Microscopic Review INDICATED 01/02/21 21:08 Urine Culture Comments INDICATED 01/02/21 21:08 Nasal Adenovirus (PCR) NOT DETECTED 01/02/21 19:38 Nasal B. parapertussis DNA (PCR) NOT DETECTED 01/02/21 19:38 Nasal Coronavir 229E PCR NOT DETECTED 01/02/21 19:38 Nasal Coronavir HKU1 PCR NOT DETECTED 01/02/21 19:38 Nasal Coronavir NL63 PCR NOT DETECTED 01/02/21 19:38 Nasal Coronavir OC43 PCR NOT DETECTED 01/02/21 19:38 Nasal Enterovir/Rhinovir PCR NOT DETECTED 01/02/21 19:38 Nasal Influenza B PCR NOT DETECTED 01/02/21 19:38 Nasal Influenza A PCR NOT DETECTED 01/02/21 19:38 Nasal Parainfluen 1 PCR NOT DETECTED 01/02/21 19:38 Nasal Parainfluen 2 PCR NOT DETECTED 01/02/21 19:38 Nasal Parainfluen 3 PCR NOT DETECTED 01/02/21 19:38 Nasal Parainfluen 4 PCR NOT DETECTED 01/02/21 19:38 Nasal RSV (PCR) NOT DETECTED 01/02/21 19:38 Nasal B.pertussis DNA PCR NOT DETECTED 01/02/21 19:38 Nasal C.pneumoniae (PCR) NOT DETECTED 01/02/21 19:38 Fidel Human Metapneumo PCR NOT DETECTED 01/02/21 19:38 Nasal M.pneumoniae (PCR) NOT DETECTED 01/02/21 19:38 Nasal SARS-CoV-2 (PCR) NOT DETECTED 01/02/21 19:38
[2021-01-07] MEDS: SODIUM CHLORIDE FLUSH 0.9% 10 ML SYRINGE IVP SCH ×2 (08:52→17:03)
[2021-01-07] MEDS: ASPIRIN CHEW 81 MG TABLET PO SCH (08:52)
[2021-01-07] MEDS: MULTIVITAMIN W/MINERALS TABLET PO SCH (08:52)
[2021-01-07] MEDS: APIXABAN 5 MG TABLET PO SCH ×2 (08:52→20:37)
[2021-01-07] MEDS: SACCHAROMYCES BOULARDII 250 MG CAPSULE PO SCH ×2 (08:52→17:03)
[2021-01-07] MEDS: polyethylene glycoL 3350 17 GM PACKET PO SCH (12:03)
[2021-01-07] MEDS: NYSTATIN POWDER 15 GM TOP SCH ×2 (12:38→20:36)
[2021-01-07] MEDS: cephALEXin 250 MG CAPSULE PO SCH ×3 (12:44→20:36)
[2021-01-07] MEDS: ATORVASTATIN 40 MG TABLET PO SCH (20:37)
--- NOTE | 2021-01-07 22:06 | PROVIDER PROGRESS NOTE ---
Assessment/Plan - Problem List (1) Systolic CHF, acute Assessment/Plan: Echo this admission showed pt has LVEF of 40 to 45%. This is new for this pt. Her troponins were elevated, c/w CHF, but flat, ruling her out for acute coronary syndrome. Since yesterday, patient has no respiratory distress, has 95% oxygen saturation on room air. We started then stopped metoprolol and Lasix due to soft blood pressure. Will resume very low doses of B-jason using Coreg 3.125 bid and Lasix 20 mg po just on Sat, Sat, Fri. Pt is pending for d/c to SNF, addiction social worker is arranging her disposition. She will need oximetry walk test on day of DCh. She will need an outpatient work-up for the low LVEF of 40%; a Cardiology referral and/or an outpatient stress test will be needed. I told the patient today that she will need Cardiology follow-up after discharge to which she is agreeable. (2) Elevated troponin Assessment/Plan: Her troponins were elevated at 200-300, c/w CHF, but flat, ruling her out for acute coronary syndrome. (3) Afib Qualifiers: Atrial fibrillation type: paroxysmal Qualified Code(s): I48.0 - Paroxysmal atrial fibrillation Assessment/Plan: ACS has been ruled out. Hyperthyroidism has been ruled out with a normal T4. She was started on Metoprolol this admission but it was stopped when she had low blood pressure, for the last 2 days. She has gone in and out of A. fib therefore will restart a beta-jason now that her blood pressure has improved to 100-120 systolic today. She has been started on Eliquis for her stroke prophylaxis (also being treated for acute DVT, see below) (4) Chronic venous stasis dermatitis of both lower extremities Assessment/Plan: Patient presented w/ leg erythema, warmth of her lower extremities, we suspected she had cellulitis. Pt has hx of cellulitis at her legs. We started with ancef, Blood culture has been negative for bacteremia. We have switched to po antibx and she wiull be DC on this (5) DVT (deep venous thrombosis) Assessment/Plan: She presented with lower extremity swelling worse on the left and DVT was documented. Patient has allergy with IV contrast and had no respiratory distress, no tachycardia or tachypnea, thus no angiogram of chest was done since treatment for DVT and PE would be the same. She has been treated with Lovenox and transition to Eliquis, 10 mg twice daily for 7 days then transition to 5 mg twice a day starting 01/12/21. (6) Pressure ulcer Assessment/Plan: Presented with severe decubitus ulcers at sacral area. We consulted with otis linn, Surgeon suggested no procedure for patient at this time. We consulted with MAC clinic, we will continue dressing changes and reposition of patient, We will continue nurses doing skin care. Planning to discharge patient to SNF, continue with wound care (7) Generalized weakness Assessment/Plan: She presented with weakness and also was poorly kempt (Her hair was knarly and filled with cat excrement). She has needed special cleaning of her scalp while here. Continue with physical therapist and occupational therapist consulting Plan discharge patient to SNF, Consulting with social work for disposition planning. (8) Asymptomatic bacteriuria Assessment/Plan: She has denied dysuria. (9) Hypokalemia Assessment/Plan: Resolved with replacement and stopping the Lasix - Current Meds Current Meds: Current Medications Generic Name Dose Route Start Last Admin Trade Name Freq PRN Reason Stop Dose Admin Acetaminophen 650 mg 01/02/21 21:23 01/03/21 23:06 Acetaminophen 325 Mg Tablet PO 650 mg Q4HR PRN Administration Pain 1 to 4 Apixaban 10 mg 01/05/21 21:00 01/07/21 20:37 Apixaban 5 Mg Tablet PO 01/12/21 10:30 10 mg BID FELIBERTO Administration Aspirin 81 mg 01/03/21 09:00 01/07/21 08:52 Aspirin Chew 81 Mg Tablet PO 81 mg DAILY FELIBERTO Administration Atorvastatin Calcium 40 mg 01/03/21 21:00 01/07/21 20:37 Atorvastatin 40 Mg Tablet PO 40 mg QPM FELIBERTO Administration Cephalexin 500 mg 01/07/21 13:00 01/07/21 20:36 Cephalexin 250 Mg Capsule PO 500 mg QID FELIBERTO Administration Multivitamins/Minerals 1 tab 01/06/21 09:00 01/07/21 08:52 Multivitamin W/Minerals Tablet PO 1 tab DAILYWM FELIBERTO Administration Nystatin 1 applic 01/02/21 23:00 01/07/21 20:36 Nystatin Powder 15 Gm TOP 1 applic BID FELIBERTO Administration Polyethylene Glycol 17 gm 01/06/21 09:00 01/07/21 12:03 Polyethylene Glycol 3350 17 Gm Packet PO Not Given DAILY FELIBERTO Saccharomyces Boulardii 250 mg 01/03/21 17:00 01/07/21 17:03 Saccharomyces Boulardii 250 Mg Capsule PO 250 mg BIDWM FELIBERTO Administration Sodium Chloride 10 ml 01/02/21 21:23 01/06/21 21:46 Sodium Chloride Flush 0.9% 10 Ml Syringe IVP 10 ml PRN PRN Administration NEEDED PER PROVIDER ORDERS Sodium Chloride 10 ml 01/03/21 01:00 01/07/21 17:03 Sodium Chloride Flush 0.9% 10 Ml Syringe IVP 10 ml 0100,0900,1700 FELIBERTO Administration - Lab Result Fish Bone Diagrams: 01/07/21 06:05 01/07/21 06:05 Subjective - Subjective Patient Reports: Feeling Better (She describes being "not as weak as at the time of admission"), Resting Comfortably Nursing Reports: Other (She is working daily with physical therapy) Objective Vital Signs: Vital Signs - 24 hr 01/06/21 01/07/21 01/07/21 23:35 05:00 07:53 Temperature 36.6 C 36.5 C 36.5 C Heart Rate [ 74 58 L 84 Brachial] Respiratory 16 16 20 Rate Blood Pressure 105/45 L 115/39 L 135/65 H [Right Brachial artery] O2 Saturation 96 96 98 01/07/21 01/07/21 01/07/21 12:52 15:43 21:00 Temperature 36.5 C 36.5 C 36.8 C Heart Rate [ 87 76 79 Brachial] Respiratory 18 18 18 Rate Blood Pressure 120/80 117/61 100/62 [Right Brachial artery] O2 Saturation 98 98 96 Oxygen O2 Source Room air I&O (Last 24 Hrs): Intake and Output Totals x24h 01/05/21 01/06/21 01/07/21 23:59 23:59 23:59 Intake Total 2290 1440 1876 Output Total 950 1050 1050 Balance 1340 390 826 General: Alert, Oriented x3 HEENT: Mucous membr. moist/pink, Other (Titian, many teeth are missing) Neck: Supple, No JVD Neuro: Alert, Non Focal Cardiovascular: Regular rate (Frequent skipped beats), No murmurs Respiratory: Breath sounds nml Abdomen: Normal bowel sounds, Soft Extremities: Other (Swollen legs from the knees down and both are bandaged with gauze bandages) - Results Results: Laboratory Results WBC 5.1 x10^3/uL (4.8-10.8) 01/07/21 06:05 RBC 4.71 10^6/uL (4.20-5.40) 01/07/21 06:05 Hgb 13.7 g/dL (12.0-16.0) 01/07/21 06:05 Hct 44.0 % (37.0-47.0) 01/07/21 06:05 MCV 93.4 fL (81.0-99.0) 01/07/21 06:05 MCH 29.1 pg (27.0-31.0) 01/07/21 06:05 MCHC 31.1 g/dL (32.0-36.0) L 01/07/21 06:05 RDW 14.6 % (12.0-15.0) 01/07/21 06:05 Plt Count 120 10^3/uL (130-450) L 01/07/21 06:05 MPV 9.6 fL (7.9-10.8) 01/07/21 06:05 Neut # (Auto) 2.6 10^3/uL (1.5-6.6) 01/07/21 06:05 Lymph # (Auto) 1.8 10^3/uL (1.5-3.5) 01/07/21 06:05 [place] # (Auto) 0.5 10^3/uL (0.0-1.0) 01/07/21 06:05 Eos # (Auto) 0.2 10^3/uL (0.0-0.7) 01/07/21 06:05 Baso # (Auto) 0.0 10^3/uL (0.0-0.1) 01/07/21 06:05 Absolute Nucleated RBC 0.00 x10^3/uL 01/07/21 06:05 Nucleated RBC % 0.0 /100WBC 01/07/21 06:05 Manual Slide Review Indicated 01/07/21 06:05 WBC Morphology NORMAL APPEARANCE (NORMAL) 01/07/21 06:05 Platelet Estimate DECREASED (<130,000) (NORMAL) 01/07/21 06:05 Platelet Morphology NORMAL APPEARANCE (NORMAL) 01/07/21 06:05 RBC Morph Micro Appear NORMAL APPEARANCE (NORMAL) 01/07/21 06:05 D-Dimer > 1050.0 ng/mL (200.0-255.0) H 01/03/21 12:59 Sodium 135 mmol/L (135-145) 01/07/21 06:05 Potassium 3.6 mmol/L (3.5-5.0) 01/07/21 06:05 Chloride 97 mmol/L (101-111) L 01/07/21 06:05 Carbon Dioxide 31 mmol/L (21-32) 01/07/21 06:05 Anion Gap 7.0 (6-13) 01/07/21 06:05 BUN 19 mg/dL (6-20) 01/07/21 06:05 Creatinine 0.8 mg/dL (0.4-1.0) 01/07/21 06:05 Estimated GFR (MDRD) 69 (>89) L 01/07/21 06:05 Glucose 94 mg/dL (70-100) 01/07/21 06:05 Estimat Average Glucose 100 mg/dL (70-100) 01/03/21 05:54 Hemoglobin A1c % 5.1 % (4.27-6.07) 01/03/21 05:54 Lactic Acid 2.0 mmol/L (0.5-2.2) 01/03/21 11:51 Calcium 8.6 mg/dL (8.5-10.3) 01/07/21 06:05 Magnesium 1.9 mg/dL (1.7-2.8) 01/07/21 06:05 Total Bilirubin 1.7 mg/dL (0.2-1.0) H 01/02/21 19:38 AST 39 IU/L (10-42) 01/02/21 19:38 ALT 17 IU/L (10-60) 01/02/21 19:38 Alkaline Phosphatase 64 IU/L (42-121) 01/02/21 19:38 Total Creatine Kinase 202 IU/L (22-269) 01/02/21 19:38 Troponin I High Sens 198.1 ng/L (2.3-14.8) H* 01/03/21 18:20 B-Natriuretic Peptide 1239 pg/mL (5-100) H 01/04/21 05:54 Total Protein 7.3 g/dL (6.7-8.2) 01/02/21 19:38 Albumin 3.1 g/dL (3.2-5.5) L 01/02/21 19:38 Globulin 4.2 g/dL (2.1-4.2) 01/02/21 19:38 Albumin/Globulin Ratio 0.7 (1.0-2.2) L 01/02/21 19:38 Triglycerides 65 mg/dL (-149) 01/04/21 05:54 Cholesterol 109 mg/dL (-199) 01/04/21 05:54 LDL Cholesterol, Calc 66 mg/dL (-129) 01/04/21 05:54 VLDL Cholesterol 13 mg/dL 01/04/21 05:54 HDL Cholesterol 30 mg/dL (60-) L 01/04/21 05:54 LDL/HDL Ratio 2.2 (<4.4) 01/04/21 05:54 Cholesterol/HDL Ratio 3.6 (<4.4) 01/04/21 05:54 TSH 5.86 uIU/mL (0.34-5.60) H 01/02/21 20:51 Free T4 0.92 ng/dL (0.58-1.64) 01/03/21 05:54 Urine Color YELLOW 01/02/21 21:08 Urine Clarity SL. CLOUDY (CLEAR) 01/02/21 21:08 Urine pH 6.0 PH (5.0-7.5) 01/02/21 21:08 Ur Specific [place] 1.015 (1.002-1.030) 01/02/21 21:08 Urine Protein NEGATIVE mg/dL (NEGATIVE) 01/02/21 21:08 Urine Glucose (UA) NEGATIVE mg/dL (NEGATIVE) 01/02/21 21:08 Urine Ketones NEGATIVE mg/dL (NEGATIVE) 01/02/21 21:08 Urine Occult Blood TRACE-INTA (NEGATIVE) 01/02/21 21:08 Urine Nitrite POSITIVE (NEGATIVE) H 01/02/21 21:08 Urine Bilirubin NEGATIVE (NEGATIVE) 01/02/21 21:08 Urine Urobilinogen 1 (NORMAL) E.U./dL (NORMAL) 01/02/21 21:08 Ur Leukocyte Esterase SMALL (NEGATIVE) H 01/02/21 21:08 Urine RBC 0-5 /HPF (0-5) 01/02/21 21:08 Urine WBC 6-10 /HPF (0-5) H 01/02/21 21:08 Ur Squamous Epith Cells NONE SEEN (<= Few) 01/02/21 21:08 Urine Bacteria Many /HPF (None Seen) H 01/02/21 21:08 Ur Microscopic Review INDICATED 01/02/21 21:08 Urine Culture Comments INDICATED 01/02/21 21:08 Nasal Adenovirus (PCR) NOT DETECTED 01/02/21 19:38 Nasal B. parapertussis DNA (PCR) NOT DETECTED 01/02/21 19:38 Nasal Coronavir 229E PCR NOT DETECTED 01/02/21 19:38 Nasal Coronavir HKU1 PCR NOT DETECTED 01/02/21 19:38 Nasal Coronavir NL63 PCR NOT DETECTED 01/02/21 19:38 Nasal Coronavir OC43 PCR NOT DETECTED 01/02/21 19:38 Nasal Enterovir/Rhinovir PCR NOT DETECTED 01/02/21 19:38 Nasal Influenza B PCR NOT DETECTED 01/02/21 19:38 Nasal Influenza A PCR NOT DETECTED 01/02/21 19:38 Nasal Parainfluen 1 PCR NOT DETECTED 01/02/21 19:38 Nasal Parainfluen 2 PCR NOT DETECTED 01/02/21 19:38 Nasal Parainfluen 3 PCR NOT DETECTED 01/02/21 19:38 Nasal Parainfluen 4 PCR NOT DETECTED 01/02/21 19:38 Nasal RSV (PCR) NOT DETECTED 01/02/21 19:38 Nasal B.pertussis DNA PCR NOT DETECTED 01/02/21 19:38 Nasal C.pneumoniae (PCR) NOT DETECTED 01/02/21 19:38 Fidel Human Metapneumo PCR NOT DETECTED 01/02/21 19:38 Nasal M.pneumoniae (PCR) NOT DETECTED 01/02/21 19:38 Nasal SARS-CoV-2 (PCR) NOT DETECTED 01/02/21 19:38
[2021-01-07] MEDS: carvediloL 3.125 MG TABLET PO SCH (23:13)
[2021-01-08] MEDS: SODIUM CHLORIDE FLUSH 0.9% 10 ML SYRINGE IVP SCH ×3 (02:37→16:21)
[2021-01-08 06:38] LABS: BASOPHILS % (AUTO) 0.5 %; EOSINOPHILS # (AUTO) 0.2 10^3/uL (0.0-0.7); EOSINOPHILS % (AUTO) 3.5 %; HCT - HEMATOCRIT 41.3 % (37.0-47.0); HGB - HEMOGLOBIN 13.1 g/dL (12.0-16.0); LYMPHOCYTES # (AUTO) 1.7 10^3/uL (1.5-3.5); LYMPHOCYTES % (AUTO) 26.5 %; MEAN CORPUSCULAR HEMOGLOBIN 29.5 pg (27.0-31.0); MEAN CORPUSCULAR HGB CONC 31.7 g/dL (32.0-36.0); MEAN PLATELET VOLUME 9.6 fL (7.9-10.8); MONOCYTES # (AUTO) 0.7 10^3/uL (0.0-1.0); MONOCYTES % (AUTO) 10.2 %; NEUTROPHILS # (AUTO) 3.8 10^3/uL (1.5-6.6); PLT - PLATELET COUNT 129 10^3/uL (130-450); RED BLOOD COUNT 4.44 10^6/uL (4.20-5.40); RED CELL DISTRIBUTION WIDTH 14.4 % (12.0-15.0); WHITE BLOOD COUNT 6.4 x10^3/uL (4.8-10.8)
[2021-01-08 06:55] LABS: CALCIUM 8.4 mg/dL (8.5-10.3); CREATININE 0.7 mg/dL (0.4-1.0); POTASSIUM 3.8 mmol/L (3.5-5.0)
[2021-01-08] MEDS: polyethylene glycoL 3350 17 GM PACKET PO SCH (10:08)
[2021-01-08] MEDS: cephALEXin 250 MG CAPSULE PO SCH ×4 (10:11→20:30)
[2021-01-08] MEDS: APIXABAN 5 MG TABLET PO SCH ×2 (10:11→20:30)
[2021-01-08] MEDS: ASPIRIN CHEW 81 MG TABLET PO SCH (10:11)
[2021-01-08] MEDS: MULTIVITAMIN W/MINERALS TABLET PO SCH (10:12)
[2021-01-08] MEDS: NYSTATIN POWDER 15 GM TOP SCH ×2 (10:12→20:21)
[2021-01-08] MEDS: carvediloL 3.125 MG TABLET PO SCH ×2 (10:12→20:20)
[2021-01-08] MEDS: SACCHAROMYCES BOULARDII 250 MG CAPSULE PO SCH ×2 (10:12→16:21)
--- NOTE | 2021-01-08 13:53 | PROVIDER PROGRESS NOTE ---
Assessment/Plan - Problem List (1) Systolic CHF, acute Assessment/Plan: Patient was admitted with complaints of increased weakness. Her Echo on 01/03 showed that she has a LVEF of 40 to 45% which is new for her. Troponins were also elevated and flat which is consistent with CHF and ruled out acute coronary syndrome. She denies dyspnea and continues to have bedside oxygen saturations at 95% on room air. Yesterday she was started on Coreg 3.125mg twice daily and Lasix 20mg PO on Sat, Sat, and Sat. Her SBP is maintaining at 90-110s. Plan: Patient is pending for discharge to SNF, social professionals is working to arrange her disposition. Continue with her Coreg and Lasix as ordered. According to Dr. Cox's note from 01/07, "She will need an outpatient work- up for the low LVEF of 40%; a Cardiology referral and/or an outpatient stress test will be needed." According to her note, the patient was informed of this plan and was agreeable to follow up with Cardiology upon discharge. (2) Elevated troponin Assessment/Plan: Her troponins were elevated on admission and ranged 200-300s. They remained flat which is consistent with CHF versus acute coronary syndrome. Plan: Continue to monitor patient for signs and symptoms of acute coronary syndrome and obtain a Troponin as needed. (3) Afib Qualifiers: Atrial fibrillation type: paroxysmal Qualified Code(s): I48.0 - Paroxysmal atrial fibrillation Assessment/Plan: Patient has a history of A-fib and during this admission pt has been in and out of A-fib. Acute coronary syndrome was ruled out as the cause. Hyperthyroidism has also been ruled out with a normal T4. She was started on Metoprolol on 01/02 but it was stopped 01/04 due to low blood pressures. Coreg 3.12mg BID was st arted yesterday and she is tolerating well. Her rhythm continues to go in and out of A-fib, with HR 80s, and sbp 90-110s. Plan: Continue with Coreg for rate control. Continue Eliquis for her stroke prophylaxis (also being treated for acute DVT, see below) (4) Chronic venous stasis dermatitis of both lower extremities Assessment/Plan: Patient has a history or lymphadema and cellulitis to her legs. She presented with bilateral leg erythema and warmth. She was started on Ancef 01/03 and changed to Cephalexin 500mg PO four times daily on 01/07. Blood culture have been negative for bacteremia. Plan: Continue Cephalexin 500mg PO four times daily out patient. (5) DVT (deep venous thrombosis) Assessment/Plan: Patient presented with lower extremity swelling. 01/02 US Doppler found a 1.2 thrombosis to left superficial greater saphenous vein and a short segment DVT in the left popliteal vein. She did not have respiratory distress, tachycardia or tachypnea. An angiogram of the chest was not done due to her IV contrast allergy and treatment for DVT and PE would be the same. She was treated with Lovenox 10 0mg Sub Q twice daily x 4 and then transition to Eliquis, 10 mg twice daily. Plan: Continue Eliquis 10mg twice daily for a total of 7 days and then transition to 5mg twice daily on 01/12. (6) Pressure ulcer Assessment/Plan: Patient presented with severe decubitus ulcers at sacral area. Surgeon was consulted and suggested no procedure for patient at this time. The MAC clinic was then consulted who recommended dressing changes and repositioning of patient . Plan: Nurses to continue with skin care to include dressing changes and routine position changes. Plan to discharge patient to SNF and continue with wound care. (7) Generalized weakness Assessment/Plan: Patient presented with weakness and according to charting on 01/06 she was poorly kempt and had cat excrement in her hair. Plan: Continue with physical therapist and occupational therapist consulting. Plan for discharge to SNF. Continue consulting with social work for disposition planning. (8) Asymptomatic bacteriuria Assessment/Plan: Urine culture from 01/02 grew polymicrobial. Patient denied dysuria. Plan: Consider repeat Urine culture if patient develops urinary symptoms. (9) Hypokalemia Assessment/Plan: Patient was hypokalemic during hospitalization while taking Lasix. Her lowest K was 2.9 and she responded well to KCL replacement. 01/08 Lasix 20mg resumed for Sat, Sat, and Sat. Potassium today is 3.8. Plan: Continue to monitor potassium with morning labs and replace as needed. - Current Meds Current Meds: Current Medications Generic Name Dose Route Start Last Admin Trade Name Freq PRN Reason Stop Dose Admin Acetaminophen 650 mg 01/02/21 21:23 01/03/21 23:06 Acetaminophen 325 Mg Tablet PO 650 mg Q4HR PRN Administration Pain 1 to 4 Apixaban 10 mg 01/05/21 21:00 01/08/21 10:11 Apixaban 5 Mg Tablet PO 01/12/21 10:30 10 mg BID FELIBERTO Administration Aspirin 81 mg 01/03/21 09:00 01/08/21 10:11 Aspirin Chew 81 Mg Tablet PO 81 mg DAILY FELIBERTO Administration Atorvastatin Calcium 40 mg 01/03/21 21:00 01/07/21 20:37 Atorvastatin 40 Mg Tablet PO 40 mg QPM FELIBERTO Administration Carvedilol 3.125 mg 01/07/21 23:00 01/08/21 10:12 Carvedilol 3.125 Mg Tablet PO 3.125 mg BID FELIBERTO Administration Cephalexin 500 mg 01/07/21 13:00 01/08/21 13:44 Cephalexin 250 Mg Capsule PO 01/10/21 12:59 500 mg QID FELIBERTO Administration Multivitamins/Minerals 1 tab 01/06/21 09:00 01/08/21 10:12 Multivitamin W/Minerals Tablet PO 1 tab DAILYWM FELIBERTO Administration Nystatin 1 applic 01/02/21 23:00 01/08/21 10:12 Nystatin Powder 15 Gm TOP Not Given BID FELIBERTO Polyethylene Glycol 17 gm 01/06/21 09:00 01/08/21 10:08 Polyethylene Glycol 3350 17 Gm Packet PO Not Given DAILY FELIBERTO Saccharomyces Boulardii 250 mg 01/03/21 17:00 01/08/21 10:12 Saccharomyces Boulardii 250 Mg Capsule PO 250 mg BIDWM FELIBERTO Administration Sodium Chloride 10 ml 01/02/21 21:23 01/06/21 21:46 Sodium Chloride Flush 0.9% 10 Ml Syringe IVP 10 ml PRN PRN Administration NEEDED PER PROVIDER ORDERS Sodium Chloride 10 ml 01/03/21 01:00 01/08/21 10:12 Sodium Chloride Flush 0.9% 10 Ml Syringe IVP 10 ml 0100,0900,1700 FELIBERTO Administration - Lab Result Fish Bone Diagrams: 01/08/21 05:40 01/08/21 05:40 - Additional Planning Condition/Complexity: Stable Subjective - Subjective Patient Reports: Feeling Better, Resting Comfortably, Other (Patient is sitting up in bed eating breakfast. She reports feeling well and deneis concerns. Reports sleeping well through the night.) Nursing Reports: Other (Nurse reports patient is drowsy today and had to be woken up during breakfast.) Objective Vital Signs: Vital Signs - 24 hr 01/07/21 01/07/21 01/07/21 15:43 21:00 23:59 Temperature 36.5 C 36.8 C 36.7 C Heart Rate [ 76 79 72 Brachial] Respiratory 18 18 18 Rate Blood Pressure 102/35 L [Left Brachial artery] Blood Pressure 117/61 100/62 [Right Brachial artery] O2 Saturation 98 96 97 01/08/21 01/08/21 01/08/21 04:37 08:09 10:10 Temperature 36.5 C 36.5 C Heart Rate [ 79 78 79 Brachial] Respiratory 19 18 Rate Blood Pressure 120/44 L 117/42 L [Left Brachial artery] Blood Pressure 93/50 L 93/43 L [Right Brachial artery] O2 Saturation 98 97 01/08/21 13:00 Temperature 36.6 C Heart Rate [ 78 Brachial] Respiratory 18 Rate Blood Pressure 96/55 L [Left Brachial artery] Blood Pressure [Right Brachial artery] O2 Saturation 95 Oxygen O2 Source Room air I&O (Last 24 Hrs): Intake and Output Totals x24h 01/06/21 01/07/21 01/08/21 23:59 23:59 23:59 Intake Total 1440 2326 790 Output Total 1050 1050 900 Balance 390 1276 -110 General: Alert, Oriented x3, Cooperative, No acute distress HEENT: Atraumatic, PERRLA, EOMI, Mucous membr. moist/pink Neck: Supple Neuro: Alert, Oriented Times 3 Cardiovascular: Other (Irregularly- regular) Respiratory: Chest non-tender, No respiratory distress, Breath sounds nml Abdomen: Normal bowel sounds, Soft, No tenderness Extremities: No clubbing, No cyanosis, Other (2+ pitting edema to bilateral lower legs and feet.) Comments/Notes: Pitting edema to bilateral lower leg with yellow hyperkeratotic plaques and wrinkling of skin. - Results Results: Laboratory Results WBC 6.4 x10^3/uL (4.8-10.8) 01/08/21 05:40 RBC 4.44 10^6/uL (4.20-5.40) 01/08/21 05:40 Hgb 13.1 g/dL (12.0-16.0) 01/08/21 05:40 Hct 41.3 % (37.0-47.0) 01/08/21 05:40 MCV 93.0 fL (81.0-99.0) 01/08/21 05:40 MCH 29.5 pg (27.0-31.0) 01/08/21 05:40 MCHC 31.7 g/dL (32.0-36.0) L 01/08/21 05:40 RDW 14.4 % (12.0-15.0) 01/08/21 05:40 Plt Count 129 10^3/uL (130-450) L 01/08/21 05:40 MPV 9.6 fL (7.9-10.8) 01/08/21 05:40 Neut # (Auto) 3.8 10^3/uL (1.5-6.6) 01/08/21 05:40 Lymph # (Auto) 1.7 10^3/uL (1.5-3.5) 01/08/21 05:40 [place] # (Auto) 0.7 10^3/uL (0.0-1.0) 01/08/21 05:40 Eos # (Auto) 0.2 10^3/uL (0.0-0.7) 01/08/21 05:40 Baso # (Auto) 0.0 10^3/uL (0.0-0.1) 01/08/21 05:40 Absolute Nucleated RBC 0.00 x10^3/uL 01/08/21 05:40 Nucleated RBC % 0.0 /100WBC 01/08/21 05:40 Manual Slide Review Indicated 01/07/21 06:05 WBC Morphology NORMAL APPEARANCE (NORMAL) 01/07/21 06:05 Platelet Estimate DECREASED (<130,000) (NORMAL) 01/07/21 06:05 Platelet Morphology NORMAL APPEARANCE (NORMAL) 01/07/21 06:05 RBC Morph Micro Appear NORMAL APPEARANCE (NORMAL) 01/07/21 06:05 D-Dimer > 1050.0 ng/mL (200.0-255.0) H 01/03/21 12:59 Sodium 135 mmol/L (135-145) 01/08/21 05:40 Potassium 3.8 mmol/L (3.5-5.0) 01/08/21 05:40 Chloride 98 mmol/L (101-111) L 01/08/21 05:40 Carbon Dioxide 29 mmol/L (21-32) 01/08/21 05:40 Anion Gap 8.0 (6-13) 01/08/21 05:40 BUN 19 mg/dL (6-20) 01/08/21 05:40 Creatinine 0.7 mg/dL (0.4-1.0) 01/08/21 05:40 Estimated GFR (MDRD) 81 (>89) L 01/08/21 05:40 Glucose 95 mg/dL (70-100) 01/08/21 05:40 Estimat Average Glucose 100 mg/dL (70-100) 01/03/21 05:54 Hemoglobin A1c % 5.1 % (4.27-6.07) 01/03/21 05:54 Lactic Acid 2.0 mmol/L (0.5-2.2) 01/03/21 11:51 Calcium 8.4 mg/dL (8.5-10.3) L 01/08/21 05:40 Magnesium 1.9 mg/dL (1.7-2.8) 01/07/21 06:05 Total Bilirubin 1.7 mg/dL (0.2-1.0) H 01/02/21 19:38 AST 39 IU/L (10-42) 01/02/21 19:38 ALT 17 IU/L (10-60) 01/02/21 19:38 Alkaline Phosphatase 64 IU/L (42-121) 01/02/21 19:38 Total Creatine Kinase 202 IU/L (22-269) 01/02/21 19:38 Troponin I High Sens 198.1 ng/L (2.3-14.8) H* 01/03/21 18:20 B-Natriuretic Peptide 750 pg/mL (5-100) H 01/08/21 05:40 Total Protein 7.3 g/dL (6.7-8.2) 01/02/21 19:38 Albumin 3.1 g/dL (3.2-5.5) L 01/02/21 19:38 Globulin 4.2 g/dL (2.1-4.2) 01/02/21 19:38 Albumin/Globulin Ratio 0.7 (1.0-2.2) L 01/02/21 19:38 Triglycerides 65 mg/dL (-149) 01/04/21 05:54 Cholesterol 109 mg/dL (-199) 01/04/21 05:54 LDL Cholesterol, Calc 66 mg/dL (-129) 01/04/21 05:54 VLDL Cholesterol 13 mg/dL 01/04/21 05:54 HDL Cholesterol 30 mg/dL (60-) L 01/04/21 05:54 LDL/HDL Ratio 2.2 (<4.4) 01/04/21 05:54 Cholesterol/HDL Ratio 3.6 (<4.4) 01/04/21 05:54 TSH 5.86 uIU/mL (0.34-5.60) H 01/02/21 20:51 Free T4 0.92 ng/dL (0.58-1.64) 01/03/21 05:54 Urine Color YELLOW 01/02/21 21:08 Urine Clarity SL. CLOUDY (CLEAR) 01/02/21 21:08 Urine pH 6.0 PH (5.0-7.5) 01/02/21 21:08 Ur Specific [place] 1.015 (1.002-1.030) 01/02/21 21:08 Urine Protein NEGATIVE mg/dL (NEGATIVE) 01/02/21 21:08 Urine Glucose (UA) NEGATIVE mg/dL (NEGATIVE) 01/02/21 21:08 Urine Ketones NEGATIVE mg/dL (NEGATIVE) 01/02/21 21:08 Urine Occult Blood TRACE-INTA (NEGATIVE) 01/02/21 21:08 Urine Nitrite POSITIVE (NEGATIVE) H 01/02/21 21:08 Urine Bilirubin NEGATIVE (NEGATIVE) 01/02/21 21:08 Urine Urobilinogen 1 (NORMAL) E.U./dL (NORMAL) 01/02/21 21:08 Ur Leukocyte Esterase SMALL (NEGATIVE) H 01/02/21 21:08 Urine RBC 0-5 /HPF (0-5) 01/02/21 21:08 Urine WBC 6-10 /HPF (0-5) H 01/02/21 21:08 Ur Squamous Epith Cells NONE SEEN (<= Few) 01/02/21 21:08 Urine Bacteria Many /HPF (None Seen) H 01/02/21 21:08 Ur Microscopic Review INDICATED 01/02/21 21:08 Urine Culture Comments INDICATED 01/02/21 21:08 Nasal Adenovirus (PCR) NOT DETECTED 01/02/21 19:38 Nasal B. parapertussis DNA (PCR) NOT DETECTED 01/02/21 19:38 Nasal Coronavir 229E PCR NOT DETECTED 01/02/21 19:38 Nasal Coronavir HKU1 PCR NOT DETECTED 01/02/21 19:38 Nasal Coronavir NL63 PCR NOT DETECTED 01/02/21 19:38 Nasal Coronavir OC43 PCR NOT DETECTED 01/02/21 19:38 Nasal Enterovir/Rhinovir PCR NOT DETECTED 01/02/21 19:38 Nasal Influenza B PCR NOT DETECTED 01/02/21 19:38 Nasal Influenza A PCR NOT DETECTED 01/02/21 19:38 Nasal Parainfluen 1 PCR NOT DETECTED 01/02/21 19:38 Nasal Parainfluen 2 PCR NOT DETECTED 01/02/21 19:38 Nasal Parainfluen 3 PCR NOT DETECTED 01/02/21 19:38 Nasal Parainfluen 4 PCR NOT DETECTED 01/02/21 19:38 Nasal RSV (PCR) NOT DETECTED 01/02/21 19:38 Nasal B.pertussis DNA PCR NOT DETECTED 01/02/21 19:38 Nasal C.pneumoniae (PCR) NOT DETECTED 01/02/21 19:38 Fidel Human Metapneumo PCR NOT DETECTED 01/02/21 19:38 Nasal M.pneumoniae (PCR) NOT DETECTED 01/02/21 19:38 Nasal SARS-CoV-2 (PCR) NOT DETECTED 01/02/21 19:38 ABX Reporting Has patient been on IV antibiotics over the past 48 hours?: Yes
[2021-01-08] MEDS: FUROSEMIDE 20 MG TABLET PO SCH (20:21)
[2021-01-08] MEDS: ATORVASTATIN 40 MG TABLET PO SCH (20:30)
[2021-01-09] MEDS: SODIUM CHLORIDE FLUSH 0.9% 10 ML SYRINGE IVP SCH ×3 (03:59→16:50)
[2021-01-09] MEDS: MULTIVITAMIN W/MINERALS TABLET PO SCH (08:06)
[2021-01-09] MEDS: SACCHAROMYCES BOULARDII 250 MG CAPSULE PO SCH ×2 (08:06→16:51)
[2021-01-09] MEDS: APIXABAN 5 MG TABLET PO SCH ×2 (08:06→21:06)
[2021-01-09] MEDS: ASPIRIN CHEW 81 MG TABLET PO SCH (08:07)
[2021-01-09] MEDS: NYSTATIN POWDER 15 GM TOP SCH ×2 (08:07→21:06)
[2021-01-09] MEDS: cephALEXin 250 MG CAPSULE PO SCH ×4 (08:07→21:06)
[2021-01-09] MEDS: polyethylene glycoL 3350 17 GM PACKET PO SCH (08:08)
[2021-01-09] MEDS: carvediloL 3.125 MG TABLET PO SCH ×2 (08:08→21:06)
--- NOTE | 2021-01-09 08:40 | PROVIDER PROGRESS NOTE ---
Assessment/Plan - Problem List (1) Systolic CHF, acute Assessment/Plan: Patient was admitted with complaints of increased weakness. Her Echo on 01/03 showed that she has a LVEF of 40 to 45% which is new for her. Troponins were also elevated and flat which is consistent with CHF and ruled out acute coronary syndrome. She denies dyspnea and continues to have bedside oxygen saturations at 95% on room air. Yesterday she was started on Coreg 3.125mg twice daily and Lasix 20mg PO on Sat, Sat, and Sat. Her SBP is maintaining at 90-110s. Plan: Patient is pending for discharge to SNF, sr. social media & mobile manager is working to arrange her disposition. Continue with her Coreg and Lasix as ordered. According to Dr. Cox's note from 01/07, "She will need an outpatient work- up for the low LVEF of 40%; a Cardiology referral and/or an outpatient stress test will be needed." According to her note, the patient was informed of this plan and was agreeable to follow up with Cardiology upon discharge. (2) Elevated troponin Assessment/Plan: Her troponins were elevated on admission and ranged 200-300s. They remained flat which is consistent with CHF versus acute coronary syndrome. Plan: Continue to monitor patient for signs and symptoms of acute coronary syndrome and obtain a Troponin as needed. (3) Afib Qualifiers: Atrial fibrillation type: paroxysmal Qualified Code(s): I48.0 - Paroxysmal atrial fibrillation Assessment/Plan: Patient has a history of A-fib and during this admission pt has been in and out of A-fib. Acute coronary syndrome was ruled out as the cause. Hyperthyroidism has also been ruled out with a normal T4. She was started on Metoprolol on 01/02 but it was stopped 01/04 due to low blood pressures. Coreg 3.12mg BID was sta rted yesterday and she is tolerating well. Her rhythm continues to go in and out of A-fib, with HR 80s, and sbp 90-110s. Plan: Continue with Coreg for rate control. Continue Eliquis for her stroke prophylaxis (also being treated for acute DVT, see below) (4) Chronic venous stasis dermatitis of both lower extremities Assessment/Plan: Patient has a history or lymphadema and cellulitis to her legs. She presented with bilateral leg erythema and warmth. She was started on Ancef 01/03 and changed to Cephalexin 500mg PO four times daily on 01/07. Blood culture have been negative for bacteremia. Plan: Continue Cephalexin 500mg PO four times daily out patient. (5) DVT (deep venous thrombosis) Assessment/Plan: Patient presented with lower extremity swelling. 01/02 US Doppler found a 1.2 thrombosis to left superficial greater saphenous vein and a short segment DVT in the left popliteal vein. She did not have respiratory distress, tachycardia or tachypnea. An angiogram of the chest was not done due to her IV contrast allergy and treatment for DVT and PE would be the same. She was treated with Lovenox 100mg Sub Q twice daily x 4 and then transition to Eliquis, 10 mg twice daily. Plan: Continue Eliquis 10mg twice daily for a total of 7 days and then transition to 5mg twice daily on 01/12. (6) Pressure ulcer Assessment/Plan: Patient presented with severe decubitus ulcers at sacral area. Surgeon was consulted and suggested no procedure for patient at this time. The MAC clinic was then consulted who recommended dressing changes and repositioning of patient. Plan: Nurses to continue with skin care to include dressing changes and routine position changes. Plan to discharge patient to SNF and continue with wound care. (7) Generalized weakness Assessment/Plan: Patient presented with weakness and according to charting on 01/06 she was poorly kempt and had cat excrement in her hair. Plan: Continue with physical therapist and occupational therapist consulting. Plan for discharge to SNF. Continue consulting with social work for disposition planning. (8) Asymptomatic bacteriuria Assessment/Plan: Urine culture from 01/02 grew polymicrobial. Patient denied dysuria. Plan: Consider repeat Urine culture if patient develops urinary symptoms. (9) Hypokalemia Assessment/Plan: Patient was hypokalemic during hospitalization while taking Lasix. Her lowest K was 2.9 and she responded well to KCL replacement. 01/08 Lasix 20mg resumed for Sat, Sat, and Sat. Potassium today is 3.8. Plan: Continue to monitor potassium with morning labs and replace as needed. - Current Meds Current Meds: Current Medications Generic Name Dose Route Start Last Admin Trade Name Freq PRN Reason Stop Dose Admin Acetaminophen 650 mg 01/02/21 21:23 01/03/21 23:06 Acetaminophen 325 Mg Tablet PO 650 mg Q4HR PRN Administration Pain 1 to 4 Apixaban 10 mg 01/05/21 21:00 01/09/21 08:06 Apixaban 5 Mg Tablet PO 01/12/21 10:30 10 mg BID FELIBERTO Administration Aspirin 81 mg 01/03/21 09:00 01/09/21 08:07 Aspirin Chew 81 Mg Tablet PO 81 mg DAILY FELIBERTO Administration Atorvastatin Calcium 40 mg 01/03/21 21:00 01/08/21 20:30 Atorvastatin 40 Mg Tablet PO 40 mg QPM FELIBERTO Administration Carvedilol 3.125 mg 01/07/21 23:00 01/09/21 08:08 Carvedilol 3.125 Mg Tablet PO Not Given BID FELIBERTO Cephalexin 500 mg 01/07/21 13:00 01/09/21 08:07 Cephalexin 250 Mg Capsule PO 01/10/21 12:59 500 mg QID FELIBERTO Administration Furosemide 20 mg 01/08/21 22:25 01/08/21 20:21 Furosemide 20 Mg Tablet PO Not Given SUWEFR [facility] Multivitamins/Minerals 1 tab 01/06/21 09:00 01/09/21 08:06 Multivitamin W/Minerals Tablet PO 1 tab DAILYWM FELIBERTO Administration Nystatin 1 applic 01/02/21 23:00 01/09/21 08:07 Nystatin Powder 15 Gm TOP 1 applic BID FELIBERTO Administration Polyethylene Glycol 17 gm 01/06/21 09:00 01/09/21 08:08 Polyethylene Glycol 3350 17 Gm Packet PO Not Given DAILY FELIBERTO Saccharomyces Boulardii 250 mg 01/03/21 17:00 01/09/21 08:06 Saccharomyces Boulardii 250 Mg Capsule PO 250 mg BIDWM FELIBERTO Administration Sodium Chloride 10 ml 01/02/21 21:23 01/06/21 21:46 Sodium Chloride Flush 0.9% 10 Ml Syringe IVP 10 ml PRN PRN Administration NEEDED PER PROVIDER ORDERS Sodium Chloride 10 ml 01/03/21 01:00 01/09/21 08:07 Sodium Chloride Flush 0.9% 10 Ml Syringe IVP 10 ml [id number] FELIBERTO Administration - Lab Result Fish Bone Diagrams: 01/08/21 05:40 01/08/21 05:40 Subjective - Subjective Patient Reports: Other (Resting comfortably in bedside recliner. Denied any complaints.) Objective Vital Signs: Vital Signs - 24 hr 01/08/21 01/08/21 01/08/21 10:10 13:00 16:20 Temperature 36.6 C 36.6 C Heart Rate [ 79 78 80 Brachial] Respiratory 18 18 Rate Blood Pressure 117/42 L 96/55 L 100/36 L [Left Brachial artery] Blood Pressure [Right Brachial artery] O2 Saturation 95 96 01/08/21 01/09/21 01/09/21 20:15 00:49 06:14 Temperature 36.6 C 36.9 C 36.5 C Heart Rate [ 67 81 77 Brachial] Respiratory 19 18 20 Rate Blood Pressure 98/55 L [Left Brachial artery] Blood Pressure 109/55 L 112/52 L [Right Brachial artery] O2 Saturation 94 97 96 01/09/21 01/09/21 07:25 08:11 Temperature 36.6 C Heart Rate [ 76 Brachial] Respiratory 18 Rate Blood Pressure [Left Brachial artery] Blood Pressure 105/35 L 93/46 L [Right Brachial artery] O2 Saturation 97 Oxygen O2 Source Room air I&O (Last 24 Hrs): Intake and Output Totals x24h 01/07/21 01/08/21 01/09/21 23:59 23:59 23:59 Intake Total 2326 1330 Output Total 1050 1400 550 Balance 1276 -70 -550 Comments/Notes: General: Alert, Oriented x3, Cooperative, No acute distress HEENT: Atraumatic, PERRLA, EOMI, Mucous membr. moist/pink Neck: Supple Neuro: Alert, Oriented Times 3 Cardiovascular: Other (Irregularly- regular) Respiratory: Chest non-tender, No respiratory distress, Breath sounds nml Abdomen: Normal bowel sounds, Soft, No tenderness Extremities: No clubbing, No cyanosis, Other (2+ pitting edema to bilateral lower legs and feet.) Comments/Notes: Pitting edema to bilateral lower leg with yellow hyperkeratotic plaques and wrinkling of skin. - Results Results: Laboratory Results WBC 6.4 x10^3/uL (4.8-10.8) 01/08/21 05:40 RBC 4.44 10^6/uL (4.20-5.40) 01/08/21 05:40 Hgb 13.1 g/dL (12.0-16.0) 01/08/21 05:40 Hct 41.3 % (37.0-47.0) 01/08/21 05:40 MCV 93.0 fL (81.0-99.0) 01/08/21 05:40 MCH 29.5 pg (27.0-31.0) 01/08/21 05:40 MCHC 31.7 g/dL (32.0-36.0) L 01/08/21 05:40 RDW 14.4 % (12.0-15.0) 01/08/21 05:40 Plt Count 129 10^3/uL (130-450) L 01/08/21 05:40 MPV 9.6 fL (7.9-10.8) 01/08/21 05:40 Neut # (Auto) 3.8 10^3/uL (1.5-6.6) 01/08/21 05:40 Lymph # (Auto) 1.7 10^3/uL (1.5-3.5) 01/08/21 05:40 [place] # (Auto) 0.7 10^3/uL (0.0-1.0) 01/08/21 05:40 Eos # (Auto) 0.2 10^3/uL (0.0-0.7) 01/08/21 05:40 Baso # (Auto) 0.0 10^3/uL (0.0-0.1) 01/08/21 05:40 Absolute Nucleated RBC 0.00 x10^3/uL 01/08/21 05:40 Nucleated RBC % 0.0 /100WBC 01/08/21 05:40 Manual Slide Review Indicated 01/07/21 06:05 WBC Morphology NORMAL APPEARANCE (NORMAL) 01/07/21 06:05 Platelet Estimate DECREASED (<130,000) (NORMAL) 01/07/21 06:05 Platelet Morphology NORMAL APPEARANCE (NORMAL) 01/07/21 06:05 RBC Morph Micro Appear NORMAL APPEARANCE (NORMAL) 01/07/21 06:05 D-Dimer > 1050.0 ng/mL (200.0-255.0) H 01/03/21 12:59 Sodium 135 mmol/L (135-145) 01/08/21 05:40 Potassium 3.8 mmol/L (3.5-5.0) 01/08/21 05:40 Chloride 98 mmol/L (101-111) L 01/08/21 05:40 Carbon Dioxide 29 mmol/L (21-32) 01/08/21 05:40 Anion Gap 8.0 (6-13) 01/08/21 05:40 BUN 19 mg/dL (6-20) 01/08/21 05:40 Creatinine 0.7 mg/dL (0.4-1.0) 01/08/21 05:40 Estimated GFR (MDRD) 81 (>89) L 01/08/21 05:40 Glucose 95 mg/dL (70-100) 01/08/21 05:40 Estimat Average Glucose 100 mg/dL (70-100) 01/03/21 05:54 Hemoglobin A1c % 5.1 % (4.27-6.07) 01/03/21 05:54 Lactic Acid 2.0 mmol/L (0.5-2.2) 01/03/21 11:51 Calcium 8.4 mg/dL (8.5-10.3) L 01/08/21 05:40 Magnesium 1.9 mg/dL (1.7-2.8) 01/07/21 06:05 Total Bilirubin 1.7 mg/dL (0.2-1.0) H 01/02/21 19:38 AST 39 IU/L (10-42) 01/02/21 19:38 ALT 17 IU/L (10-60) 01/02/21 19:38 Alkaline Phosphatase 64 IU/L (42-121) 01/02/21 19:38 Total Creatine Kinase 202 IU/L (22-269) 01/02/21 19:38 Troponin I High Sens 198.1 ng/L (2.3-14.8) H* 01/03/21 18:20 B-Natriuretic Peptide 750 pg/mL (5-100) H 01/08/21 05:40 Total Protein 7.3 g/dL (6.7-8.2) 01/02/21 19:38 Albumin 3.1 g/dL (3.2-5.5) L 01/02/21 19:38 Globulin 4.2 g/dL (2.1-4.2) 01/02/21 19:38 Albumin/Globulin Ratio 0.7 (1.0-2.2) L 01/02/21 19:38 Triglycerides 65 mg/dL (-149) 01/04/21 05:54 Cholesterol 109 mg/dL (-199) 01/04/21 05:54 LDL Cholesterol, Calc 66 mg/dL (-129) 01/04/21 05:54 VLDL Cholesterol 13 mg/dL 01/04/21 05:54 HDL Cholesterol 30 mg/dL (60-) L 01/04/21 05:54 LDL/HDL Ratio 2.2 (<4.4) 01/04/21 05:54 Cholesterol/HDL Ratio 3.6 (<4.4) 01/04/21 05:54 TSH 5.86 uIU/mL (0.34-5.60) H 01/02/21 20:51 Free T4 0.92 ng/dL (0.58-1.64) 01/03/21 05:54 Urine Color YELLOW 01/02/21 21:08 Urine Clarity SL. CLOUDY (CLEAR) 01/02/21 21:08 Urine pH 6.0 PH (5.0-7.5) 01/02/21 21:08 Ur Specific [place] 1.015 (1.002-1.030) 01/02/21 21:08 Urine Protein NEGATIVE mg/dL (NEGATIVE) 01/02/21 21:08 Urine Glucose (UA) NEGATIVE mg/dL (NEGATIVE) 01/02/21 21:08 Urine Ketones NEGATIVE mg/dL (NEGATIVE) 01/02/21 21:08 Urine Occult Blood TRACE-INTA (NEGATIVE) 01/02/21 21:08 Urine Nitrite POSITIVE (NEGATIVE) H 01/02/21 21:08 Urine Bilirubin NEGATIVE (NEGATIVE) 01/02/21 21:08 Urine Urobilinogen 1 (NORMAL) E.U./dL (NORMAL) 01/02/21 21:08 Ur Leukocyte Esterase SMALL (NEGATIVE) H 01/02/21 21:08 Urine RBC 0-5 /HPF (0-5) 01/02/21 21:08 Urine WBC 6-10 /HPF (0-5) H 01/02/21 21:08 Ur Squamous Epith Cells NONE SEEN (<= Few) 01/02/21 21:08 Urine Bacteria Many /HPF (None Seen) H 01/02/21 21:08 Ur Microscopic Review INDICATED 01/02/21 21:08 Urine Culture Comments INDICATED 01/02/21 21:08 Nasal Adenovirus (PCR) NOT DETECTED 01/02/21 19:38 Nasal B. parapertussis DNA (PCR) NOT DETECTED 01/02/21 19:38 Nasal Coronavir 229E PCR NOT DETECTED 01/02/21 19:38 Nasal Coronavir HKU1 PCR NOT DETECTED 01/02/21 19:38 Nasal Coronavir NL63 PCR NOT DETECTED 01/02/21 19:38 Nasal Coronavir OC43 PCR NOT DETECTED 01/02/21 19:38 Nasal Enterovir/Rhinovir PCR NOT DETECTED 01/02/21 19:38 Nasal Influenza B PCR NOT DETECTED 01/02/21 19:38 Nasal Influenza A PCR NOT DETECTED 01/02/21 19:38 Nasal Parainfluen 1 PCR NOT DETECTED 01/02/21 19:38 Nasal Parainfluen 2 PCR NOT DETECTED 01/02/21 19:38 Nasal Parainfluen 3 PCR NOT DETECTED 01/02/21 19:38 Nasal Parainfluen 4 PCR NOT DETECTED 01/02/21 19:38 Nasal RSV (PCR) NOT DETECTED 01/02/21 19:38 Nasal B.pertussis DNA PCR NOT DETECTED 01/02/21 19:38 Nasal C.pneumoniae (PCR) NOT DETECTED 01/02/21 19:38 Fidel Human Metapneumo PCR NOT DETECTED 01/02/21 19:38 Nasal M.pneumoniae (PCR) NOT DETECTED 01/02/21 19:38 Nasal SARS-CoV-2 (PCR) NOT DETECTED 01/02/21 19:38 ABX Reporting Has patient been on IV antibiotics over the past 48 hours?: No
[2021-01-09 20:14] LABS: CALCIUM 8.3 mg/dL (8.5-10.3); CREATININE 0.7 mg/dL (0.4-1.0); MAGNESIUM 2.1 mg/dL (1.7-2.8); POTASSIUM 3.9 mmol/L (3.5-5.0)
[2021-01-09] MEDS: ATORVASTATIN 40 MG TABLET PO SCH (21:06)
[2021-01-10] MEDS: SODIUM CHLORIDE FLUSH 0.9% 10 ML SYRINGE IVP SCH ×4 (01:07→23:59)
[2021-01-10 05:55] LABS: BASOPHILS # (AUTO) 0.1 10^3/uL (0.0-0.1); BASOPHILS % (AUTO) 0.9 %; EOSINOPHILS # (AUTO) 0.2 10^3/uL (0.0-0.7); EOSINOPHILS % (AUTO) 3.3 %; HCT - HEMATOCRIT 37.3 % (37.0-47.0); HGB - HEMOGLOBIN 11.4 g/dL (12.0-16.0); LYMPHOCYTES # (AUTO) 1.7 10^3/uL (1.5-3.5); LYMPHOCYTES % (AUTO) 30.9 %; MEAN CORPUSCULAR HEMOGLOBIN 28.9 pg (27.0-31.0); MEAN CORPUSCULAR HGB CONC 30.6 g/dL (32.0-36.0); MEAN CORPUSCULAR VOLUME 94.7 fL (81.0-99.0); MONOCYTES # (AUTO) 0.7 10^3/uL (0.0-1.0); MONOCYTES % (AUTO) 13.7 %; NEUTROPHILS # (AUTO) 2.8 10^3/uL (1.5-6.6); PLT - PLATELET COUNT 124 10^3/uL (130-450); RED BLOOD COUNT 3.94 10^6/uL (4.20-5.40); RED CELL DISTRIBUTION WIDTH 14.5 % (12.0-15.0); WHITE BLOOD COUNT 5.4 x10^3/uL (4.8-10.8)
[2021-01-10 06:07] LABS: CALCIUM 8.1 mg/dL (8.5-10.3); CREATININE 0.6 mg/dL (0.4-1.0); POTASSIUM 3.7 mmol/L (3.5-5.0)
[2021-01-10] MEDS: MULTIVITAMIN W/MINERALS TABLET PO SCH (09:22)
[2021-01-10] MEDS: carvediloL 3.125 MG TABLET PO SCH ×2 (09:22→21:04)
[2021-01-10] MEDS: SACCHAROMYCES BOULARDII 250 MG CAPSULE PO SCH ×2 (09:22→16:56)
[2021-01-10] MEDS: cephALEXin 250 MG CAPSULE PO SCH (09:23)
[2021-01-10] MEDS: APIXABAN 5 MG TABLET PO SCH ×2 (09:23→21:04)
[2021-01-10] MEDS: ASPIRIN CHEW 81 MG TABLET PO SCH (09:23)
[2021-01-10] MEDS: polyethylene glycoL 3350 17 GM PACKET PO SCH (09:24)
[2021-01-10] MEDS: NYSTATIN POWDER 15 GM TOP SCH ×2 (09:25→21:04)
--- NOTE | 2021-01-10 11:01 | PROVIDER PROGRESS NOTE ---
Assessment/Plan - Problem List (1) Systolic heart failure Assessment/Plan: 1026 Patient reported she feel comfortable. Patient had 95% oxygen saturation on room air. Patient was ordered low dosage Coreg by another provider for management of her heart failure. Since patient blood pressure can tolerate this low dosage Coreg, will continue. Patient may follow-up with event sales representative as outpatient. 01/06 Patient has no respiratory distress, She had a 95% oxygen saturation on room air. We will continue hold metoprolol, Lasix on today for her soft blood pressure. pt is pending for d/c to SNF, consult with dialysis social worker Disposition planning. 01/05 Patient reported she feels good, Patient has no respiratory distress. Because the patient still had soft blood pressure, We will continue hold metoprolol, Lasix. 01/04 Echo show patient had 40 to 45% of EF. This is new to pt. Because of patient's hypotension, will hold Lasix, metoprolol, Continue ow-sodium diet, Strict I's and O's and daily weights. Continue telemetry and vital signs monitor. 01/03 pt present generalized weakness, Bilateral lower extremity edema, Significant elevated BNP, We will finish echo study, continue Lasix, Low-sodium diet, Strict I's and O's and daily weights. Continue telemetry and vital signs monitor (2)hypotension 1026,resolved. patient has history of soft blood pressure. Patient is asympt omatic. Today patient systolic blood pressure is over 100. 01-06 improved. Patient is asymptomatic, We will continue vital signs monitor, continue hold Lasix and metoprolol now. 1021 Improved, Systolic blood pressure is 97. Patient report she usually run low Blood pressure for her for family. Patient is asymptomatic. We will hold patient blood pressure medicine, Continue vital signs monitor. 01/04 vital show pt has hypotension. pt report she has hx of hypotension and her family has the similar hx. Patient is asymptomatic, patient feed by herself, She had appropriate conversation with me, She denies dizziness, lightheaded, chest pain. We will hold Blood pressure medicine metoprolol, Lasix now. order 500cc NS IV bolus, continue closely vital monitor. (3) elevated troponin 1021, Patient denying chest pain, Troponin now is treaded down, We will switch Lovenox to Eliquis. Continue telemetry and vital signs monitor 01/04 trended down, pt denies chest pain, continue Lovenox for total 48 hours, then switch to Eliquis. Initial troponin was 180 and recheck one hour later was 203, Continue elevated to 300. Her EKG Show V4 V5 st segment depression, Soft blood pressure, although pt denies chest pain. We have no patient previous EKG compared. At this time we will continue monitor troponin, start with Lovenox, Lipitor, Beta block, adjust meds dosage as pt's HR and BP measure. Unfortunately we have no provider do stress test in the inpatient, We will finish echo study, we advise the patient to have stress test as outpatient. (4) Afib 1021, HR Is controlled at 71. We will continue Eliquis. 10-20, HR is 90-100. Because the patient hypotension, metoprolol is on hold. We may give patient digoxin if patient's a fibrillation is uncontrolled. Continue Lovenox now, Continue vp purchasing She is found to be in a fibrillation which appears to be a new diagnosis. She is rate controlled we will start her on low-dose metoprolol given she is currently normotensive. TSH is elevated but Free T4 is normal. Monitor on telemetry. night provider discussed anticoagulation with her and she would like to think about this a little more. she is on lovenox for her DVT as well. (5) cellulitis with Chronic venous stasis dermatitis of both lower extremities Conclusion/Plan: 1026, Significantly improved as her baseline. Patient has a history of Bilateral lower extremity lymphedema with Chronic venous stasis. Blood cultures is negative for bacteremia. Patient has no fever, patient's WBC is in the normal range. 10-22, improved. WBC is normal arrange, Blood culture is negative for bacteremia, continue anceft IV 1021, continue to improve, Swelling and erythema are almost resolved. Blood cultures is negative. We will switch antibiotics to p.o. on tomorrow. 1020, improved, Patient's lower extremity erythema, swelling are reduced. Wound culture is pending, blood culture is negative for bacteremia. We will continue intravenous antibiotics. Patient present Erythema, warmth, redness at her lower extremities. suspension she had cellulitis. pt has hx of cellulitis at her legs. start with ancef, blood culture, check lactic acid, specially pt has soft BP. (6)DVT 1021, we will change to Eliquis for 7 days With 10 mg twice daily. 1020, we will continue treated with Lovenox now then we will switch Eliquis on tomorrow Patient has left Lower extremity DVT, We will start with Lovenox. Patient has allergy with IV contrast. pt has No respiratory distress, no tachycardia or tachypnea, We will check D-dimer, hold angiogram of chest at this point. (7)pressure ulcers 1025, Continue to improve. We will continue nurse dressing change, Follow-up continue with dressing change in the nurse facility. patient may follow-up with wound care as outpatient. 01-06, Improved, We will continue daily dressing change, Plan discharge patient to SNF, continue wound care, patient may follow-up wound care as outpatient 1019, Surgeon recommendation Dressing change, We will follow with his recommendations With dressing change, Continue turn and reposition for skin care As well. 1019, we consulted with surgeon, Surgeon suggested no any procedure for patient at this time. We consulted with [facility], we will continue dressing change, will continue ten and reposition of patient, We will continue nurse skin care Patient Present severe decubitus ulcers at sacral area. We will consult with the wound care, and do wound culture, we consulted with surgeon (8) Hypokalemia We will replace this orally as she is being diuresed. We will also check a magnesium. (9) Asymptomatic bacteriuria Conclusion/Plan: She has denies dysuria. we will followup with UA culture. (10)generalized Weakness 01-10, We will continue physical therapist and occupational therapist evaluation and treatment, continue consult with social work For disposition planning, patient is a pending for SNF 01/06 Continue physical therapist occupational therapist consult, Plan discharge patient to SNF, Consult with social work for disposition planning. Patient present Significant weakness, Difficulty to care for her self. Per patient's daughter report, patient's house has lots of stool, she can not go to clean. Nurse found pt has very dirty hair with possible contamination of stool in her hair. Patient and patient's daughter all agree patient could be discharged to SNF if she is qualified. Continue consult with PT and OT. - Current Meds Current Meds: Current Medications Generic Name Dose Route Start Last Admin Trade Name Freq PRN Reason Stop Dose Admin Acetaminophen 650 mg 01/02/21 21:23 01/03/21 23:06 Acetaminophen 325 Mg Tablet PO 650 mg Q4HR PRN Administration Pain 1 to 4 Apixaban 10 mg 01/05/21 21:00 01/10/21 09:23 Apixaban 5 Mg Tablet PO 01/12/21 10:30 10 mg BID FELIBERTO Administration Atorvastatin Calcium 40 mg 01/03/21 21:00 01/09/21 21:06 Atorvastatin 40 Mg Tablet PO 40 mg QPM FELIBERTO Administration Carvedilol 3.125 mg 01/10/21 00:55 01/10/21 09:22 Carvedilol 3.125 Mg Tablet PO 3.125 mg BID FELIBERTO Administration Cephalexin 500 mg 01/07/21 13:00 01/10/21 09:23 Cephalexin 250 Mg Capsule PO 01/10/21 12:59 500 mg QID FELIBERTO Administration Furosemide 20 mg 01/08/21 22:25 01/08/21 20:21 Furosemide 20 Mg Tablet PO Not Given SUWEFR FELIBERTO Multivitamins/Minerals 1 tab 01/06/21 09:00 01/10/21 09:22 Multivitamin W/Minerals Tablet PO 1 tab DAILYWM FELIBERTO Administration Nystatin 1 applic 01/02/21 23:00 01/10/21 09:25 Nystatin Powder 15 Gm TOP 1 applic BID FELIBERTO Administration Polyethylene Glycol 17 gm 01/06/21 09:00 01/10/21 09:24 Polyethylene Glycol 3350 17 Gm Packet PO Not Given DAILY FELIBERTO Saccharomyces Boulardii 250 mg 01/03/21 17:00 01/10/21 09:22 Saccharomyces Boulardii 250 Mg Capsule PO 250 mg BIDWM FELIBERTO Administration Sodium Chloride 10 ml 01/02/21 21:23 01/06/21 21:46 Sodium Chloride Flush 0.9% 10 Ml Syringe IVP 10 ml PRN PRN Administration NEEDED PER PROVIDER ORDERS Sodium Chloride 10 ml 01/03/21 01:00 01/10/21 09:23 Sodium Chloride Flush 0.9% 10 Ml Syringe IVP 10 ml 0100,0900,1700 FELIBERTO Administration - Lab Result Fish Bone Diagrams: 01/10/21 05:26 01/10/21 05:26 - Additional Planning My Orders: My Active Orders 01/11/21 05:00 BMP - BASIC METABOLIC PANEL [CHEM] DAILYLAB CBC - COMP BLD CT W/AUTO DIFF [HEME] DAILYLAB 01/12/21 05:00 BMP - BASIC METABOLIC PANEL [CHEM] DAILYLAB CBC - COMP BLD CT W/AUTO DIFF [HEME] DAILYLAB 01/12/21 21:00 Apixaban [Eliquis] 5 mg PO BID 01/13/21 05:00 BMP - BASIC METABOLIC PANEL [CHEM] DAILYLAB CBC - COMP BLD CT W/AUTO DIFF [HEME] DAILYLAB 01/14/21 05:00 BMP - BASIC METABOLIC PANEL [CHEM] DAILYLAB CBC - COMP BLD CT W/AUTO DIFF [HEME] DAILYLAB 01/15/21 05:00 BMP - BASIC METABOLIC PANEL [CHEM] DAILYLAB CBC - COMP BLD CT W/AUTO DIFF [HEME] DAILYLAB Subjective - Subjective Patient Reports: Feeling Better, Resting Comfortably Objective Vital Signs: Vital Signs - 24 hr 01/09/21 01/09/21 01/09/21 11:36 16:30 18:46 Temperature 36.5 C 36.5 C Heart Rate [ 73 80 86 Brachial] Respiratory 17 18 19 Rate Blood Pressure 109/53 L [Left Brachial artery] Blood Pressure 103/49 L 101/59 L [Right Brachial artery] O2 Saturation 98 94 95 01/09/21 01/09/21 01/10/21 21:00 23:55 05:00 Temperature 36.8 C 36.7 C 36.6 C Heart Rate [ 82 84 84 Brachial] Respiratory 20 19 18 Rate Blood Pressure [Left Brachial artery] Blood Pressure 94/52 L 92/39 L 94/41 L [Right Brachial artery] O2 Saturation 94 96 94 01/10/21 01/10/21 01/10/21 07:49 09:12 09:13 Temperature 36.6 C Heart Rate [ 82 72 75 Brachial] Respiratory 18 Rate Blood Pressure [Left Brachial artery] Blood Pressure 104/34 L 84/52 L 87/42 L [Right Brachial artery] O2 Saturation 95 01/10/21 01/10/21 09:15 09:20 Temperature Heart Rate [ 78 72 Brachial] Respiratory Rate Blood Pressure 100/42 L 109/41 L [Left Brachial artery] Blood Pressure [Right Brachial artery] O2 Saturation Oxygen O2 Source Room air I&O (Last 24 Hrs): Intake and Output Totals x24h 01/08/21 01/09/21 01/10/21 23:59 23:59 23:59 Intake Total 1330 1770 770 Output Total 1400 1450 850 Balance -70 320 -80 General: Alert, Oriented x3, Cooperative, No acute distress HEENT: Atraumatic Neck: Supple Lymphatic: no adenopathy Neuro: Alert, Non Focal, Oriented Times 3 Cardiovascular: Regular rate, Normal S1, Normal S2 Respiratory: Chest non-tender, No respiratory distress, Breath sounds nml Abdomen: Normal bowel sounds, Soft Extremities: Normal pulses Comments/Notes: sacral area pressure ulcer is improved. erythema is reduced. - Results Results: Laboratory Results WBC 5.4 x10^3/uL (4.8-10.8) 01/10/21 05:26 RBC 3.94 10^6/uL (4.20-5.40) L 01/10/21 05:26 Hgb 11.4 g/dL (12.0-16.0) L 01/10/21 05:26 Hct 37.3 % (37.0-47.0) 01/10/21 05:26 MCV 94.7 fL (81.0-99.0) 01/10/21 05:26 MCH 28.9 pg (27.0-31.0) 01/10/21 05:26 MCHC 30.6 g/dL (32.0-36.0) L 01/10/21 05:26 RDW 14.5 % (12.0-15.0) 01/10/21 05:26 Plt Count 124 10^3/uL (130-450) L 01/10/21 05:26 MPV 10.0 fL (7.9-10.8) 01/10/21 05:26 Neut # (Auto) 2.8 10^3/uL (1.5-6.6) 01/10/21 05:26 Lymph # (Auto) 1.7 10^3/uL (1.5-3.5) 01/10/21 05:26 Carbon # (Auto) 0.7 10^3/uL (0.0-1.0) 01/10/21 05:26 Eos # (Auto) 0.2 10^3/uL (0.0-0.7) 01/10/21 05:26 Baso # (Auto) 0.1 10^3/uL (0.0-0.1) 01/10/21 05:26 Absolute Nucleated RBC 0.00 x10^3/uL 01/10/21 05:26 Nucleated RBC % 0.0 /100WBC 01/10/21 05:26 Manual Slide Review Indicated 01/07/21 06:05 WBC Morphology NORMAL APPEARANCE (NORMAL) 01/07/21 06:05 Platelet Estimate DECREASED (<130,000) (NORMAL) 01/07/21 06:05 Platelet Morphology NORMAL APPEARANCE (NORMAL) 01/07/21 06:05 RBC Morph Micro Appear NORMAL APPEARANCE (NORMAL) 01/07/21 06:05 D-Dimer > 1050.0 ng/mL (200.0-255.0) H 01/03/21 12:59 Sodium 138 mmol/L (135-145) 01/10/21 05:26 Potassium 3.7 mmol/L (3.5-5.0) 01/10/21 05:26 Chloride 103 mmol/L (101-111) 01/10/21 05:26 Carbon Dioxide 28 mmol/L (21-32) 01/10/21 05:26 Anion Gap 7.0 (6-13) 01/10/21 05:26 BUN 20 mg/dL (6-20) 01/10/21 05:26 Creatinine 0.6 mg/dL (0.4-1.0) 01/10/21 05:26 Estimated GFR (MDRD) 96 (>89) 01/10/21 05:26 Glucose 103 mg/dL (70-100) H 01/10/21 05:26 Estimat Average Glucose 100 mg/dL (70-100) 01/03/21 05:54 Hemoglobin A1c % 5.1 % (4.27-6.07) 01/03/21 05:54 Lactic Acid 2.0 mmol/L (0.5-2.2) 01/03/21 11:51 Calcium 8.1 mg/dL (8.5-10.3) L 01/10/21 05:26 Magnesium 2.1 mg/dL (1.7-2.8) 01/09/21 20:00 Total Bilirubin 1.7 mg/dL (0.2-1.0) H 01/02/21 19:38 AST 39 IU/L (10-42) 01/02/21 19:38 ALT 17 IU/L (10-60) 01/02/21 19:38 Alkaline Phosphatase 64 IU/L (42-121) 01/02/21 19:38 Total Creatine Kinase 202 IU/L (22-269) 01/02/21 19:38 Troponin I High Sens 198.1 ng/L (2.3-14.8) H* 01/03/21 18:20 B-Natriuretic Peptide 1035 pg/mL (5-100) H 01/10/21 05:26 Total Protein 7.3 g/dL (6.7-8.2) 01/02/21 19:38 Albumin 3.1 g/dL (3.2-5.5) L 01/02/21 19:38 Globulin 4.2 g/dL (2.1-4.2) 01/02/21 19:38 Albumin/Globulin Ratio 0.7 (1.0-2.2) L 01/02/21 19:38 Triglycerides 65 mg/dL (-149) 01/04/21 05:54 Cholesterol 109 mg/dL (-199) 01/04/21 05:54 LDL Cholesterol, Calc 66 mg/dL (-129) 01/04/21 05:54 VLDL Cholesterol 13 mg/dL 01/04/21 05:54 HDL Cholesterol 30 mg/dL (60-) L 01/04/21 05:54 LDL/HDL Ratio 2.2 (<4.4) 01/04/21 05:54 Cholesterol/HDL Ratio 3.6 (<4.4) 01/04/21 05:54 TSH 5.86 uIU/mL (0.34-5.60) H 01/02/21 20:51 Free T4 0.92 ng/dL (0.58-1.64) 01/03/21 05:54 Urine Color YELLOW 01/02/21 21:08 Urine Clarity SL. CLOUDY (CLEAR) 01/02/21 21:08 Urine pH 6.0 PH (5.0-7.5) 01/02/21 21:08 Ur Specific [place] 1.015 (1.002-1.030) 01/02/21 21:08 Urine Protein NEGATIVE mg/dL (NEGATIVE) 01/02/21 21:08 Urine Glucose (UA) NEGATIVE mg/dL (NEGATIVE) 01/02/21 21:08 Urine Ketones NEGATIVE mg/dL (NEGATIVE) 01/02/21 21:08 Urine Occult Blood TRACE-INTA (NEGATIVE) 01/02/21 21:08 Urine Nitrite POSITIVE (NEGATIVE) H 01/02/21 21:08 Urine Bilirubin NEGATIVE (NEGATIVE) 01/02/21 21:08 Urine Urobilinogen 1 (NORMAL) E.U./dL (NORMAL) 01/02/21 21:08 Ur Leukocyte Esterase SMALL (NEGATIVE) H 01/02/21 21:08 Urine RBC 0-5 /HPF (0-5) 01/02/21 21:08 Urine WBC 6-10 /HPF (0-5) H 01/02/21 21:08 Ur Squamous Epith Cells NONE SEEN (<= Few) 01/02/21 21:08 Urine Bacteria Many /HPF (None Seen) H 01/02/21 21:08 Ur Microscopic Review INDICATED 01/02/21 21:08 Urine Culture Comments INDICATED 01/02/21 21:08 Nasal Adenovirus (PCR) NOT DETECTED 01/02/21 19:38 Nasal B. parapertussis DNA (PCR) NOT DETECTED 01/02/21 19:38 Nasal Coronavir 229E PCR NOT DETECTED 01/02/21 19:38 Nasal Coronavir HKU1 PCR NOT DETECTED 01/02/21 19:38 Nasal Coronavir NL63 PCR NOT DETECTED 01/02/21 19:38 Nasal Coronavir OC43 PCR NOT DETECTED 01/02/21 19:38 Nasal Enterovir/Rhinovir PCR NOT DETECTED 01/02/21 19:38 Nasal Influenza B PCR NOT DETECTED 01/02/21 19:38 Nasal Influenza A PCR NOT DETECTED 01/02/21 19:38 Nasal Parainfluen 1 PCR NOT DETECTED 01/02/21 19:38 Nasal Parainfluen 2 PCR NOT DETECTED 01/02/21 19:38 Nasal Parainfluen 3 PCR NOT DETECTED 01/02/21 19:38 Nasal Parainfluen 4 PCR NOT DETECTED 01/02/21 19:38 Nasal RSV (PCR) NOT DETECTED 01/02/21 19:38 Nasal B.pertussis DNA PCR NOT DETECTED 01/02/21 19:38 Nasal C.pneumoniae (PCR) NOT DETECTED 01/02/21 19:38 Fidel Human Metapneumo PCR NOT DETECTED 01/02/21 19:38 Nasal M.pneumoniae (PCR) NOT DETECTED 01/02/21 19:38 Nasal SARS-CoV-2 (PCR) NOT DETECTED 01/02/21 19:38 ABX Reporting Has patient been on IV antibiotics over the past 48 hours?: Yes Current Medications - Current Medications Current Medications: Active Medications Acetaminophen (Acetaminophen 325 Mg Tablet) 650 mg PO Q4HR PRN PRN Reason: Pain 1 to 4 Last Admin: 01/03/21 23:06 Dose: 650 mg Documented by: Apixaban (Apixaban 5 Mg Tablet) 10 mg PO BID [facility] Stop: 01/12/21 10:30 Last Admin: 01/10/21 09:23 Dose: 10 mg Documented by: Apixaban (Apixaban 5 Mg Tablet) 5 mg PO BID [facility] Atorvastatin Calcium (Atorvastatin 40 Mg Tablet) 40 mg PO QPM [facility] Last Admin: 01/09/21 21:06 Dose: 40 mg Documented by: Carvedilol (Carvedilol 3.125 Mg Tablet) 3.125 mg PO BID [facility] Last Admin: 01/10/21 09:22 Dose: 3.125 mg Documented by: Cephalexin (Cephalexin 250 Mg Capsule) 500 mg PO QID [facility] Stop: 01/10/21 12:59 Last Admin: 01/10/21 09:23 Dose: 500 mg Documented by: Furosemide (Furosemide 20 Mg Tablet) 20 mg PO SUWEFR [facility] Last Admin: 01/08/21 20:21 Dose: Not Given Documented by: Multi-Ingredient Ointment (Zinc Oxide 20% Oint 30 Gm Tube) 1 applic TOP PRN PRN PRN Reason: Skin Care Multivitamins/Minerals (Multivitamin W/Minerals Tablet) 1 tab PO DAILYWM [facility] Last Admin: 01/10/21 09:22 Dose: 1 tab Documented by: Nystatin (Nystatin Powder 15 Gm) 1 applic TOP BID [facility] Last Admin: 01/10/21 09:25 Dose: 1 applic Documented by: Ondansetron HCl (Ondansetron Odt 4 Mg Tablet) 4 mg TL Q6HR PRN PRN Reason: Nausea / Vomiting Ondansetron HCl (Ondansetron 4 Mg/2 Ml Vial) 4 mg IVP Q6HR PRN PRN Reason: Nausea / Vomiting Polyethylene Glycol (Polyethylene Glycol 3350 17 Gm Packet) 17 gm PO DAILY [facility] Last Admin: 01/10/21 09:24 Dose: Not Given Documented by: Saccharomyces Boulardii (Saccharomyces Boulardii 250 Mg Capsule) 250 mg PO BIDWM [facility] Last Admin: 01/10/21 09:22 Dose: 250 mg Documented by: Sodium Chloride (Sodium Chloride Flush 0.9% 10 Ml Syringe) 10 ml IVP PRN PRN PRN Reason: NEEDED PER PROVIDER ORDERS Last Admin: 01/06/21 21:46 Dose: 10 ml Documented by: Sodium Chloride (Sodium Chloride Flush 0.9% 10 Ml Syringe) 10 ml IVP 0100,0900,1700 FELIBERTO Last Admin: 01/10/21 09:23 Dose: 10 ml Documented by: Duloxetine HCl [Cymbalta] 60 mg PO DAILY 01/02/21
[2021-01-10] MEDS: ATORVASTATIN 40 MG TABLET PO SCH (21:04)
[2021-01-11] MEDS: NYSTATIN POWDER 15 GM TOP SCH ×2 (05:30→21:41)
[2021-01-11] MEDS: MULTIVITAMIN W/MINERALS TABLET PO SCH (05:39)
[2021-01-11] MEDS: SACCHAROMYCES BOULARDII 250 MG CAPSULE PO SCH ×2 (05:39→17:04)
[2021-01-11 06:13] LABS: BASOPHILS # (AUTO) 0.1 10^3/uL (0.0-0.1); BASOPHILS % (AUTO) 1.2 %; EOSINOPHILS # (AUTO) 0.2 10^3/uL (0.0-0.7); EOSINOPHILS % (AUTO) 3.1 %; HCT - HEMATOCRIT 36.1 % (37.0-47.0); HGB - HEMOGLOBIN 11.5 g/dL (12.0-16.0); LYMPHOCYTES # (AUTO) 1.6 10^3/uL (1.5-3.5); LYMPHOCYTES % (AUTO) 32.5 %; MEAN CORPUSCULAR HEMOGLOBIN 29.6 pg (27.0-31.0); MEAN CORPUSCULAR HGB CONC 31.9 g/dL (32.0-36.0); MEAN PLATELET VOLUME 10.2 fL (7.9-10.8); MONOCYTES # (AUTO) 0.7 10^3/uL (0.0-1.0); MONOCYTES % (AUTO) 14.3 %; NEUTROPHILS # (AUTO) 2.4 10^3/uL (1.5-6.6); NEUTROPHILS % (AUTO) 48.7 %; PLT - PLATELET COUNT 116 10^3/uL (130-450); RED BLOOD COUNT 3.88 10^6/uL (4.20-5.40); RED CELL DISTRIBUTION WIDTH 14.6 % (12.0-15.0); WHITE BLOOD COUNT 4.9 x10^3/uL (4.8-10.8)
[2021-01-11 06:19] LABS: CALCIUM 8.1 mg/dL (8.5-10.3); CREATININE 0.8 mg/dL (0.4-1.0); POTASSIUM 3.8 mmol/L (3.5-5.0)
[2021-01-11] MEDS: polyethylene glycoL 3350 17 GM PACKET PO SCH (08:35)
[2021-01-11] MEDS: carvediloL 3.125 MG TABLET PO SCH ×2 (08:42→21:41)
[2021-01-11] MEDS: APIXABAN 5 MG TABLET PO SCH ×2 (08:42→21:41)
[2021-01-11] MEDS: SODIUM CHLORIDE FLUSH 0.9% 10 ML SYRINGE IVP SCH ×3 (08:43→23:40)
--- NOTE | 2021-01-11 11:03 | PROVIDER PROGRESS NOTE ---
Assessment/Plan - Problem List (1) Systolic heart failure Assessment/Plan: 01-11 Patient is hemodynamic stable, and she feel comfortable. Patient is ready for discharge to SNF. continue Coreg and lasix. 1026 Patient reported she feel comfortable. Patient had 95% oxygen saturation on room air. Patient was ordered low dosage Coreg by another provider for management of her heart failure. Since patient blood pressure can tolerate this low dosage Coreg, will continue. Patient may follow-up with rn social services as outpatient. 01/06 Patient has no respiratory distress, She had a 95% oxygen saturation on room air. We will continue hold metoprolol, Lasix on today for her soft blood pressure. pt is pending for d/c to SNF, consult with rn social services Disposition planning. 01/05 Patient reported she feels good, Patient has no respiratory distress. Because the patient still had soft blood pressure, We will continue hold metoprolol, Lasix. 01/04 Echo show patient had 40 to 45% of EF. This is new to pt. Because of patient's hypotension, will hold Lasix, metoprolol, Continue ow-sodium diet, Strict I's and O's and daily weights. Continue telemetry and vital signs monitor. 01/03 pt present generalized weakness, Bilateral lower extremity edema, Significant elevated BNP, We will finish echo study, continue Lasix, Low-sodium diet, Strict I's and O's and daily weights. Continue telemetry and vital signs monitor (2)hypotension 1026,resolved. patient has history of soft blood pressure. Patient is asymptomatic. Today patient systolic blood pressure is over 100. 01-06 improved. Patient is asymptomatic, We will continue vital signs monitor, continue hold Lasix and metoprolol now. 1021 Improved, Systolic blood pressure is 97. Patient report she usually run low Blood pressure for her for family. Patient is asymptomatic. We will hold patient blood pressure medicine, Continue vital signs monitor. 01/04 vital show pt has hypotension. pt report she has hx of hypotension and her family has the similar hx. Patient is asymptomatic, patient feed by herself, She had appropriate conversation with me, She denies dizziness, lightheaded, chest pain. We will hold Blood pressure medicine metoprolol, Lasix now. order 500cc NS IV bolus, continue closely vital monitor. (3) elevated troponin 1021, Patient denying chest pain, Troponin now is treaded down, We will switch Lovenox to Eliquis. Continue telemetry and vital signs monitor 01/04 trended down, pt denies chest pain, continue Lovenox for total 48 hours, then switch to Eliquis. Initial troponin was 180 and recheck one hour later was 203, Continue elevated to 300. Her EKG Show V4 V5 st segment depression, Soft blood pressure, although pt denies chest pain. We have no patient previous EKG compared. At this time we will continue monitor troponin, start with Lovenox, Lipitor, Beta block, adjust meds dosage as pt's HR and BP measure. Unfortunately we have no provider do stress test in the inpatient, We will finish echo study, we advise the patient to have stress test as outpatient. (4) Afib 1021, HR Is controlled at 71. We will continue Eliquis. 01-04, HR is 90-100. Because the patient hypotension, metoprolol is on hold. We may give patient digoxin if patient's a fibrillation is uncontrolled. Continue Lovenox now, Continue lunchroom monitor She is found to be in a fibrillation which appears to be a new diagnosis. She is rate controlled we will start her on low-dose metoprolol given she is currently normotensive. TSH is elevated but Free T4 is normal. Monitor on telemetry. night provider discussed anticoagulation with her and she would like to think about this a little more. she is on lovenox for her DVT as well. (5) cellulitis with Chronic venous stasis dermatitis of both lower extremities Conclusion/Plan: 01-11, resolved for her acute cellulitis. Patient has a history of chronic Bilateral lower extremity lymphedema with Chronic venous stasis. Hold antibiotics 1026, Significantly improved as her baseline. Patient has a history of Bilateral lower extremity lymphedema with Chronic venous stasis. Blood cultures is negative for bacteremia. Patient has no fever, patient's WBC is in the normal range. 10, improved. WBC is normal arrange, Blood culture is negative for bacteremia, continue anceft IV 1021, continue to improve, Swelling and erythema are almost resolved. Blood cultures is negative. We will switch antibiotics to p.o. on tomorrow. 1020, improved, Patient's lower extremity erythema, swelling are reduced. Wound culture is pending, blood culture is negative for bacteremia. We will continue intravenous antibiotics. Patient present Erythema, warmth, redness at her lower extremities. suspension she had cellulitis. pt has hx of cellulitis at her legs. start with ancef, blood culture, check lactic acid, specially pt has soft BP. (6)DVT 1021, we will change to Eliquis for 7 days With 10 mg twice daily. 1020, we will continue treated with Lovenox now then we will switch Eliquis on tomorrow Patient has left Lower extremity DVT, We will start with Lovenox. Patient has allergy with IV contrast. pt has No respiratory distress, no tachycardia or tachypnea, We will check D-dimer, hold angiogram of chest at this point. (7)pressure ulcers 01-11, improved, continue dressing change. we consulted with surgeon before, per surgeon's advised, no surgical intervention needed. 102, Continue to improve. We will continue nurse dressing change, Follow-up continue with dressing change in the nurse facility. patient may follow-up with wound care as outpatient. 01-06, Improved, We will continue daily dressing change, Plan discharge patient to SNF, continue wound care, patient may follow-up wound care as outpatient 102, Surgeon recommendation Dressing change, We will follow with his praneeth mmendations With dressing change, Continue turn and reposition for skin care As well. 102, we consulted with surgeon, Surgeon suggested no any procedure for patient at this time. We consulted with [facility], we will continue dressing change, will continue ten and reposition of patient, We will continue nurse skin care Patient Present severe decubitus ulcers at sacral area. We will consult with the wound care, and do wound culture, we consulted with surgeon (8) Hypokalemia We will replace this orally as she is being diuresed. We will also check a magnesium. (9) Asymptomatic bacteriuria Conclusion/Plan: She has denies dysuria. we will followup with UA culture. (10)generalized Weakness 01-10, We will continue physical therapist and occupational therapist evaluation and treatment, continue consult with social work For disposition planning, patient is a pending for SNF 01/06 Continue physical therapist occupational therapist consult, Plan discharge patient to SNF, Consult with social work for disposition planning. Patient present Significant weakness, Difficulty to care for her self. Per patient's daughter report, patient's house has lots of stool, she can not go to clean. Nurse found pt has very dirty hair with possible contamination of stool in her hair. Patient and patient's daughter all agree patient could be discharged to SNF if she is qualified. Continue consult with PT and OT. - Current Meds Current Meds: Current Medications Generic Name Dose Route Start Last Admin Trade Name Freq PRN Reason Stop Dose Admin Acetaminophen 650 mg 01/02/21 21:23 01/03/21 23:06 Acetaminophen 325 Mg Tablet PO 650 mg Q4HR PRN Administration Pain 1 to 4 Apixaban 10 mg 01/05/21 21:00 01/11/21 08:42 Apixaban 5 Mg Tablet PO 01/12/21 10:30 10 mg BID FELIBERTO Administration Atorvastatin Calcium 40 mg 01/03/21 21:00 01/10/21 21:04 Atorvastatin 40 Mg Tablet PO 40 mg QPM FELIBERTO Administration Carvedilol 3.125 mg 01/10/21 00:55 01/11/21 08:42 Carvedilol 3.125 Mg Tablet PO 3.125 mg BID FELIBERTO Administration Furosemide 20 mg 01/08/21 22:25 01/08/21 20:21 Furosemide 20 Mg Tablet PO Not Given SUWEFR FELIBERTO Multivitamins/Minerals 1 tab 01/06/21 09:00 01/11/21 05:39 Multivitamin W/Minerals Tablet PO 1 tab DAILYWM FELIBERTO Administration Nystatin 1 applic 01/02/21 23:00 01/11/21 05:30 Nystatin Powder 15 Gm TOP 1 applic BID FELIBERTO Administration Polyethylene Glycol 17 gm 01/06/21 09:00 01/11/21 08:35 Polyethylene Glycol 3350 17 Gm Packet PO Not Given DAILY FELIBERTO Saccharomyces Boulardii 250 mg 01/03/21 17:00 01/11/21 05:39 Saccharomyces Boulardii 250 Mg Capsule PO 250 mg BIDWM FELIBERTO Administration Sodium Chloride 10 ml 01/02/21 21:23 01/06/21 21:46 Sodium Chloride Flush 0.9% 10 Ml Syringe IVP 10 ml PRN PRN Administration NEEDED PER PROVIDER ORDERS Sodium Chloride 10 ml 01/03/21 01:00 01/11/21 08:43 Sodium Chloride Flush 0.9% 10 Ml Syringe IVP 10 ml 0100,0900,1700 FELIBERTO Administration - Lab Result Fish Bone Diagrams: 01/11/21 05:02 01/11/21 05:02 - Additional Planning My Orders: My Active Orders 01/12/21 05:00 BMP - BASIC METABOLIC PANEL [CHEM] DAILYLAB CBC - COMP BLD CT W/AUTO DIFF [HEME] DAILYLAB 01/12/21 21:00 Apixaban [Eliquis] 5 mg PO BID 01/13/21 05:00 BMP - BASIC METABOLIC PANEL [CHEM] DAILYLAB CBC - COMP BLD CT W/AUTO DIFF [HEME] DAILYLAB 01/14/21 05:00 BMP - BASIC METABOLIC PANEL [CHEM] DAILYLAB CBC - COMP BLD CT W/AUTO DIFF [HEME] DAILYLAB 01/15/21 05:00 BMP - BASIC METABOLIC PANEL [CHEM] DAILYLAB CBC - COMP BLD CT W/AUTO DIFF [HEME] DAILYLAB Subjective - Subjective Patient Reports: Resting Comfortably, No Complaints Objective Vital Signs: Vital Signs - 24 hr 01/10/21 01/10/21 01/10/21 12:35 16:23 20:47 Temperature 36.5 C 36.5 C 36.6 C Heart Rate [ 71 75 83 Brachial] Respiratory 18 16 16 Rate Blood Pressure 94/49 L 107/37 L 112/51 L [Left Brachial artery] Blood Pressure [Right Brachial artery] O2 Saturation 98 95 18 L 01/11/21 01/11/21 01/11/21 01:00 05:31 07:49 Temperature 36.6 C 36.2 C L 36.6 C Heart Rate [ 77 72 67 Brachial] Respiratory 17 17 16 Rate Blood Pressure 102/54 L [Left Brachial artery] Blood Pressure 98/50 L 105/65 [Right Brachial artery] O2 Saturation 94 95 95 01/11/21 08:40 Temperature Heart Rate [ 74 Brachial] Respiratory Rate Blood Pressure 117/48 L [Left Brachial artery] Blood Pressure [Right Brachial artery] O2 Saturation Oxygen O2 Source Room air I&O (Last 24 Hrs): Intake and Output Totals x24h 01/09/21 01/10/21 01/11/21 23:59 23:59 23:59 Intake Total 1770 1850 580 Output Total 1450 1650 1650 Balance 320 200 -1070 General: Alert, Oriented x3, Cooperative, No acute distress HEENT: Atraumatic, PERRLA Neck: Supple Lymphatic: no adenopathy Neuro: Alert, Non Focal, Oriented Times 3 Cardiovascular: Regular rate, Normal S1, Normal S2 Respiratory: Chest non-tender, No respiratory distress, Breath sounds nml Abdomen: Normal bowel sounds, Soft Extremities: Normal pulses - Results Results: Laboratory Results WBC 4.9 x10^3/uL (4.8-10.8) 01/11/21 05:02 RBC 3.88 10^6/uL (4.20-5.40) L 01/11/21 05:02 Hgb 11.5 g/dL (12.0-16.0) L 01/11/21 05:02 Hct 36.1 % (37.0-47.0) L 01/11/21 05:02 MCV 93.0 fL (81.0-99.0) 01/11/21 05:02 MCH 29.6 pg (27.0-31.0) 01/11/21 05:02 MCHC 31.9 g/dL (32.0-36.0) L 01/11/21 05:02 RDW 14.6 % (12.0-15.0) 01/11/21 05:02 Plt Count 116 10^3/uL (130-450) L 01/11/21 05:02 MPV 10.2 fL (7.9-10.8) 01/11/21 05:02 Neut # (Auto) 2.4 10^3/uL (1.5-6.6) 01/11/21 05:02 Lymph # (Auto) 1.6 10^3/uL (1.5-3.5) 01/11/21 05:02 [place] # (Auto) 0.7 10^3/uL (0.0-1.0) 01/11/21 05:02 Eos # (Auto) 0.2 10^3/uL (0.0-0.7) 01/11/21 05:02 Baso # (Auto) 0.1 10^3/uL (0.0-0.1) 01/11/21 05:02 Absolute Nucleated RBC 0.00 x10^3/uL 01/11/21 05:02 Nucleated RBC % 0.0 /100WBC 01/11/21 05:02 Manual Slide Review Indicated 01/07/21 06:05 WBC Morphology NORMAL APPEARANCE (NORMAL) 01/07/21 06:05 Platelet Estimate DECREASED (<130,000) (NORMAL) 01/07/21 06:05 Platelet Morphology NORMAL APPEARANCE (NORMAL) 01/07/21 06:05 RBC Morph Micro Appear NORMAL APPEARANCE (NORMAL) 01/07/21 06:05 D-Dimer > 1050.0 ng/mL (200.0-255.0) H 01/03/21 12:59 Sodium 136 mmol/L (135-145) 01/11/21 05:02 Potassium 3.8 mmol/L (3.5-5.0) 01/11/21 05:02 Chloride 101 mmol/L (101-111) 01/11/21 05:02 Carbon Dioxide 27 mmol/L (21-32) 01/11/21 05:02 Anion Gap 8.0 (6-13) 01/11/21 05:02 BUN 20 mg/dL (6-20) 01/11/21 05:02 Creatinine 0.8 mg/dL (0.4-1.0) 01/11/21 05:02 Estimated GFR (MDRD) 69 (>89) L 01/11/21 05:02 Glucose 104 mg/dL (70-100) H 01/11/21 05:02 Estimat Average Glucose 100 mg/dL (70-100) 01/03/21 05:54 Hemoglobin A1c % 5.1 % (4.27-6.07) 01/03/21 05:54 Lactic Acid 2.0 mmol/L (0.5-2.2) 01/03/21 11:51 Calcium 8.1 mg/dL (8.5-10.3) L 01/11/21 05:02 Magnesium 2.1 mg/dL (1.7-2.8) 01/09/21 20:00 Total Bilirubin 1.7 mg/dL (0.2-1.0) H 01/02/21 19:38 AST 39 IU/L (10-42) 01/02/21 19:38 ALT 17 IU/L (10-60) 01/02/21 19:38 Alkaline Phosphatase 64 IU/L (42-121) 01/02/21 19:38 Total Creatine Kinase 202 IU/L (22-269) 01/02/21 19:38 Troponin I High Sens 198.1 ng/L (2.3-14.8) H* 01/03/21 18:20 B-Natriuretic Peptide 1035 pg/mL (5-100) H 01/10/21 05:26 Total Protein 7.3 g/dL (6.7-8.2) 01/02/21 19:38 Albumin 3.1 g/dL (3.2-5.5) L 01/02/21 19:38 Globulin 4.2 g/dL (2.1-4.2) 01/02/21 19:38 Albumin/Globulin Ratio 0.7 (1.0-2.2) L 01/02/21 19:38 Triglycerides 65 mg/dL (-149) 01/04/21 05:54 Cholesterol 109 mg/dL (-199) 01/04/21 05:54 LDL Cholesterol, Calc 66 mg/dL (-129) 01/04/21 05:54 VLDL Cholesterol 13 mg/dL 01/04/21 05:54 HDL Cholesterol 30 mg/dL (60-) L 01/04/21 05:54 LDL/HDL Ratio 2.2 (<4.4) 01/04/21 05:54 Cholesterol/HDL Ratio 3.6 (<4.4) 01/04/21 05:54 TSH 5.86 uIU/mL (0.34-5.60) H 01/02/21 20:51 Free T4 0.92 ng/dL (0.58-1.64) 01/03/21 05:54 Urine Color YELLOW 01/02/21 21:08 Urine Clarity SL. CLOUDY (CLEAR) 01/02/21 21:08 Urine pH 6.0 PH (5.0-7.5) 01/02/21 21:08 Ur Specific [place] 1.015 (1.002-1.030) 01/02/21 21:08 Urine Protein NEGATIVE mg/dL (NEGATIVE) 01/02/21 21:08 Urine Glucose (UA) NEGATIVE mg/dL (NEGATIVE) 01/02/21 21:08 Urine Ketones NEGATIVE mg/dL (NEGATIVE) 01/02/21 21:08 Urine Occult Blood TRACE-INTA (NEGATIVE) 01/02/21 21:08 Urine Nitrite POSITIVE (NEGATIVE) H 01/02/21 21:08 Urine Bilirubin NEGATIVE (NEGATIVE) 01/02/21 21:08 Urine Urobilinogen 1 (NORMAL) E.U./dL (NORMAL) 01/02/21 21:08 Ur Leukocyte Esterase SMALL (NEGATIVE) H 01/02/21 21:08 Urine RBC 0-5 /HPF (0-5) 01/02/21 21:08 Urine WBC 6-10 /HPF (0-5) H 01/02/21 21:08 Ur Squamous Epith Cells NONE SEEN (<= Few) 01/02/21 21:08 Urine Bacteria Many /HPF (None Seen) H 01/02/21 21:08 Ur Microscopic Review INDICATED 01/02/21 21:08 Urine Culture Comments INDICATED 01/02/21 21:08 Nasal Adenovirus (PCR) NOT DETECTED 01/02/21 19:38 Nasal B. parapertussis DNA (PCR) NOT DETECTED 01/02/21 19:38 Nasal Coronavir 229E PCR NOT DETECTED 01/02/21 19:38 Nasal Coronavir HKU1 PCR NOT DETECTED 01/02/21 19:38 Nasal Coronavir NL63 PCR NOT DETECTED 01/02/21 19:38 Nasal Coronavir OC43 PCR NOT DETECTED 01/02/21 19:38 Nasal Enterovir/Rhinovir PCR NOT DETECTED 01/02/21 19:38 Nasal Influenza B PCR NOT DETECTED 01/02/21 19:38 Nasal Influenza A PCR NOT DETECTED 01/02/21 19:38 Nasal Parainfluen 1 PCR NOT DETECTED 01/02/21 19:38 Nasal Parainfluen 2 PCR NOT DETECTED 01/02/21 19:38 Nasal Parainfluen 3 PCR NOT DETECTED 01/02/21 19:38 Nasal Parainfluen 4 PCR NOT DETECTED 01/02/21 19:38 Nasal RSV (PCR) NOT DETECTED 01/02/21 19:38 Nasal B.pertussis DNA PCR NOT DETECTED 01/02/21 19:38 Nasal C.pneumoniae (PCR) NOT DETECTED 01/02/21 19:38 Fidel Human Metapneumo PCR NOT DETECTED 01/02/21 19:38 Nasal M.pneumoniae (PCR) NOT DETECTED 01/02/21 19:38 Nasal SARS-CoV-2 (PCR) NOT DETECTED 01/02/21 19:38 ABX Reporting Has patient been on IV antibiotics over the past 48 hours?: No Current Medications - Current Medications Current Medications: Active Medications Acetaminophen (Acetaminophen 325 Mg Tablet) 650 mg PO Q4HR PRN PRN Reason: Pain 1 to 4 Last Admin: 01/03/21 23:06 Dose: 650 mg Documented by: Apixaban (Apixaban 5 Mg Tablet) mg PO BID [facility] Stop: 01/12/21 10:30 Last Admin: 01/11/21 08:42 Dose: 10 mg Documented by: Apixaban (Apixaban 5 Mg Tablet) 5 mg PO BID [facility] Atorvastatin Calcium (Atorvastatin 40 Mg Tablet) 40 mg PO QPM [facility] Last Admin: 01/10/21 21:04 Dose: 40 mg Documented by: Carvedilol (Carvedilol 3.125 Mg Tablet) 3.125 mg PO BID [facility] Last Admin: 01/11/21 08:42 Dose: 3.125 mg Documented by: Furosemide (Furosemide 20 Mg Tablet) 20 mg PO SUWEFR [facility] Last Admin: 01/08/21 20:21 Dose: Not Given Documented by: Multi-Ingredient Ointment (Zinc Oxide 20% Oint 30 Gm Tube) 1 applic TOP PRN PRN PRN Reason: Skin Care Multivitamins/Minerals (Multivitamin W/Minerals Tablet) 1 tab PO DAILYWM [facility] Last Admin: 01/11/21 05:39 Dose: 1 tab Documented by: Nystatin (Nystatin Powder 15 Gm) 1 applic TOP BID [facility] Last Admin: 01/11/21 05:30 Dose: 1 applic Documented by: Ondansetron HCl (Ondansetron Odt 4 Mg Tablet) 4 mg TL Q6HR PRN PRN Reason: Nausea / Vomiting Ondansetron HCl (Ondansetron 4 Mg/2 Ml Vial) 4 mg IVP Q6HR PRN PRN Reason: Nausea / Vomiting Polyethylene Glycol (Polyethylene Glycol 3350 17 Gm Packet) 17 gm PO DAILY [facility] Last Admin: 01/11/21 08:35 Dose: Not Given Documented by: Saccharomyces Boulardii (Saccharomyces Boulardii 250 Mg Capsule) 250 mg PO BIDWM [facility] Last Admin: 01/11/21 05:39 Dose: 250 mg Documented by: Sodium Chloride (Sodium Chloride Flush 0.9% 10 Ml Syringe) 10 ml IVP PRN PRN PRN Reason: NEEDED PER PROVIDER ORDERS Last Admin: 01/06/21 21:46 Dose: 10 ml Documented by: Sodium Chloride (Sodium Chloride Flush 0.9% 10 Ml Syringe) 10 ml IVP 0100,0900,1700 [facility] Last Admin: 01/11/21 08:43 Dose: 10 ml Documented by: Duloxetine HCl [Cymbalta] 60 mg PO DAILY 01/02/21
--- NOTE | 2021-01-11 20:03 | XRAY Report ---
PROCEDURE: Chest 1 View X-Ray INDICATIONS: sob TECHNIQUE: One view of the chest was acquired. COMPARISON: X-ray chest 1 view, 01/02/2021. FINDINGS: Lungs are clear. Surgical changes and devices: None. Lungs and pleura: Increased pulmonary vascularity compatible with mild pulmonary congestion. No pleu ral effusions or pneumothorax. Mediastinum: Mediastinal contours appear normal. Heart size is increased. Bones and chest wall: No suspicious bony lesions. Overlying soft tissues appear unremarkable. IMPRESSION: Mild congestive heart failure. Reviewed by: Vanesa Swan MD on 01/11/2021 8:02 PM PDT Approved by: Vanesa Swan MD on 01/11/2021 8:02 PM PDT Station ID: [id number]
[2021-01-11] MEDS: ATORVASTATIN 40 MG TABLET PO SCH (21:41)
[2021-01-11] MEDS: FUROSEMIDE 20 MG TABLET PO SCH (21:42)
[2021-01-12 06:01] LABS: BASOPHILS # (AUTO) 0.1 10^3/uL (0.0-0.1); BASOPHILS % (AUTO) 1.1 %; EOSINOPHILS # (AUTO) 0.1 10^3/uL (0.0-0.7); EOSINOPHILS % (AUTO) 2.6 %; HCT - HEMATOCRIT 35.9 % (37.0-47.0); HGB - HEMOGLOBIN 11.4 g/dL (12.0-16.0); LYMPHOCYTES # (AUTO) 1.6 10^3/uL (1.5-3.5); LYMPHOCYTES % (AUTO) 29.9 %; MEAN CORPUSCULAR HEMOGLOBIN 29.6 pg (27.0-31.0); MEAN CORPUSCULAR HGB CONC 31.8 g/dL (32.0-36.0); MEAN CORPUSCULAR VOLUME 93.2 fL (81.0-99.0); MEAN PLATELET VOLUME 9.9 fL (7.9-10.8); MONOCYTES # (AUTO) 0.7 10^3/uL (0.0-1.0); MONOCYTES % (AUTO) 13.5 %; NEUTROPHILS # (AUTO) 2.9 10^3/uL (1.5-6.6); NEUTROPHILS % (AUTO) 52.9 %; PLT - PLATELET COUNT 114 10^3/uL (130-450); RED BLOOD COUNT 3.85 10^6/uL (4.20-5.40); RED CELL DISTRIBUTION WIDTH 14.5 % (12.0-15.0); WHITE BLOOD COUNT 5.4 x10^3/uL (4.8-10.8)
[2021-01-12 06:10] LABS: CALCIUM 8.1 mg/dL (8.5-10.3); CREATININE 0.7 mg/dL (0.4-1.0); POTASSIUM 3.6 mmol/L (3.5-5.0)
[2021-01-12] MEDS: MULTIVITAMIN W/MINERALS TABLET PO SCH (08:47)
[2021-01-12] MEDS: SACCHAROMYCES BOULARDII 250 MG CAPSULE PO SCH ×2 (08:49→18:28)
[2021-01-12] MEDS: APIXABAN 5 MG TABLET PO SCH ×2 (08:49→20:57)
[2021-01-12] MEDS: SODIUM CHLORIDE FLUSH 0.9% 10 ML SYRINGE IVP SCH ×3 (08:51→23:39)
[2021-01-12] MEDS: polyethylene glycoL 3350 17 GM PACKET PO SCH (08:51)
[2021-01-12] MEDS: carvediloL 3.125 MG TABLET PO SCH ×2 (08:52→20:57)
[2021-01-12] MEDS: NYSTATIN POWDER 15 GM TOP SCH ×2 (08:52→21:55)
[2021-01-12] MEDS ORDERED: FUROSEMIDE 20 MG TABLET PO SCH ×2 (09:00→14:00)
--- NOTE | 2021-01-12 10:52 | PROVIDER PROGRESS NOTE ---
Assessment/Plan - Problem List (1) Systolic heart failure Assessment/Plan: 01-12 Patient reported she felt shortness of breathing. Chest x-ray show increased pulmonary congestion. Patient blood pressure become normal range. We will increase his Lasix 20 mg twice daily p.o. On today, Closely vital signs mo nitor. We will also continue construction crew member, Continue Coreg. out of bed, encourage pt walk safely, continue PT/OT 01-11 Patient is hemodynamic stable, and she feel comfortable. Patient is ready for discharge to SNF. continue Coreg and lasix. 1026 Patient reported she feel comfortable. Patient had 95% oxygen saturation on room air. Patient was ordered low dosage Coreg by another provider for management of her heart failure. Since patient blood pressure can tolerate this low dosage Coreg, will continue. Patient may follow-up with cytotechnologist/histotechnologist as outpatient. 01/06 Patient has no respiratory distress, She had a 95% oxygen saturation on room air. We will continue hold metoprolol, Lasix on today for her soft blood pressure. pt is pending for d/c to SNF, consult with social security assessor Disposition planning. 01/05 Patient reported she feels good, Patient has no respiratory distress. Because the patient still had soft blood pressure, We will continue hold metoprolol, Lasix. 01/04 Echo show patient had 40 to 45% of EF. This is new to pt. Because of patient's hypotension, will hold Lasix, metoprolol, Continue ow-sodium diet, Strict I's and O's and daily weights. Continue telemetry and vital signs monitor. 01/03 pt present generalized weakness, Bilateral lower extremity edema, Signi ficant elevated BNP, We will finish echo study, continue Lasix, Low-sodium diet, Strict I's and O's and daily weights. Continue telemetry and vital signs monitor (2)hypotension 01-12 resolved. 1026,resolved. patient has history of soft blood pressure. Patient is asymptom atic. Today patient systolic blood pressure is over 100. 01-06 improved. Patient is asymptomatic, We will continue vital signs monitor, continue hold Lasix and metoprolol now. 1021 Improved, Systolic blood pressure is 97. Patient report she usually run low Blood pressure for her for family. Patient is asymptomatic. We will hold patient blood pressure medicine, Continue vital signs monitor. 01/04 vital show pt has hypotension. pt report she has hx of hypotension and her family has the similar hx. Patient is asymptomatic, patient feed by herself, She had appropriate conversation with me, She denies dizziness, lightheaded, chest pain. We will hold Blood pressure medicine metoprolol, Lasix now. order 500cc NS IV bolus, continue closely vital monitor. (3) elevated troponin 1021, Patient denying chest pain, Troponin now is treaded down, We will switch Lovenox to Eliquis. Continue telemetry and vital signs monitor 01/04 trended down, pt denies chest pain, continue Lovenox for total 48 hours, then switch to Eliquis. Initial troponin was 180 and recheck one hour later was 203, Continue elevated to 300. Her EKG Show V4 V5 st segment depression, Soft blood pressure, although pt denies chest pain. We have no patient previous EKG compared. At this time we will continue monitor troponin, start with Lovenox, Lipitor, Beta block, adjust meds dosage as pt's HR and BP measure. Unfortunately we have no provider do stress test in the inpatient, We will finish echo study, we advise the patient to have stress test as outpatient. (4) Afib 01-12 continue tele monitor, continue coreg and eliquis. 1021, HR Is controlled at 71. We will continue Eliquis. 01-04, HR is 90-100. Because the patient hypotension, metoprolol is on hold. We may give patient digoxin if patient's a fibrillation is uncontrolled. Continue Lovenox now, Continue construction crew member She is found to be in a fibrillation which appears to be a new diagnosis. She is rate controlled we will start her on low-dose metoprolol given she is currently normotensive. TSH is elevated but Free T4 is normal. Monitor on telemetry. night provider discussed anticoagulation with her and she would like to think about this a little more. she is on lovenox for her DVT as well. (5) cellulitis with Chronic venous stasis dermatitis of both lower extremities Conclusion/Plan: 01-11, resolved for her acute cellulitis. Patient has a history of chronic Bilateral lower extremity lymphedema with Chronic venous stasis. Hold antibiotics 1026, Significantly improved as her baseline. Patient has a history of Bilateral lower extremity lymphedema with Chronic venous stasis. Blood cultures is negative for bacteremia. Patient has no fever, patient's WBC is in the normal range. 10-22, improved. WBC is normal arrange, Blood culture is negative for bacteremia, continue anceft IV 1021, continue to improve, Swelling and erythema are almost resolved. Blood cultures is negative. We will switch antibiotics to p.o. on tomorrow. 1020, improved, Patient's lower extremity erythema, swelling are reduced. Wound culture is pending, blood culture is negative for bacteremia. We will continue intravenous antibiotics. Patient present Erythema, warmth, redness at her lower extremities. suspension she had cellulitis. pt has hx of cellulitis at her legs. start with ancef, blood culture, check lactic acid, specially pt has soft BP. (6)DVT 1021, we will change to Eliquis for 7 days With 10 mg twice daily. 1020, we will continue treated with Lovenox now then we will switch Eliquis on tomorrow Patient has left Lower extremity DVT, We will start with Lovenox. Patient has allergy with IV contrast. pt has No respiratory distress, no tachycardia or tachypnea, We will check D-dimer, hold angiogram of chest at this point. (7)pressure ulcers 10-, improved, continue dressing change. we consulted with surgeon before, per surgeon's advised, no surgical intervention needed. 1026, Continue to improve. We will continue nurse dressing change, Follow-up continue with dressing change in the nurse facility. patient may follow-up with wound care as outpatient. 10, Improved, We will continue daily dressing change, Plan discharge patient to SNF, continue wound care, patient may follow-up wound care as outpatient 1020, Surgeon recommendation Dressing change, We will follow with his recommendations With dressing change, Continue turn and reposition for skin care As well. 1020, we consulted with surgeon, Surgeon suggested no any procedure for patient at this time. We consulted with [facility], we will continue dressing change, will continue ten and reposition of patient, We will continue nurse skin care Patient Present severe decubitus ulcers at sacral area. We will consult with the wound care, and do wound culture, we consulted with surgeon (8) Hypokalemia We will replace this orally as she is being diuresed. We will also check a magnesium. (9) Asymptomatic bacteriuria Conclusion/Plan: She has denies dysuria. we will followup with UA culture. (10)generalized Weakness 10-26, We will continue physical therapist and occupational therapist evaluation and treatment, continue consult with social work For disposition planning, patient is a pending for SNF 01/06 Continue physical therapist occupational therapist consult, Plan discharge patient to SNF, Consult with social work for disposition planning. Patient present Significant weakness, Difficulty to care for her self. Per patient's daughter report, patient's house has lots of stool, she can not go to clean. Nurse found pt has very dirty hair with possible contamination of stool in her hair. Patient and patient's daughter all agree patient could be discharged to SNF if she is qualified. Continue consult with PT and OT. - Current Meds Current Meds: Current Medications Generic Name Dose Route Start Last Admin Trade Name Freq PRN Reason Stop Dose Admin Acetaminophen 650 mg 01/02/21 21:23 01/03/21 23:06 Acetaminophen 325 Mg Tablet PO 650 mg Q4HR PRN Administration Pain 1 to 4 Atorvastatin Calcium 40 mg 01/03/21 21:00 01/11/21 21:41 Atorvastatin 40 Mg Tablet PO 40 mg QPM FELIBERTO Administration Carvedilol 3.125 mg 01/10/21 00:55 01/12/21 08:52 Carvedilol 3.125 Mg Tablet PO 3.125 mg BID FELIBERTO Administration Multivitamins/Minerals 1 tab 01/06/21 09:00 01/12/21 08:47 Multivitamin W/Minerals Tablet PO 1 tab DAILYWM FELIBERTO Administration Nystatin 1 applic 01/02/21 23:00 01/12/21 08:52 Nystatin Powder 15 Gm TOP 1 applic BID FELIBERTO Administration Polyethylene Glycol 17 gm 01/06/21 09:00 01/12/21 08:51 Polyethylene Glycol 3350 17 Gm Packet PO Not Given DAILY FELIBERTO Saccharomyces Boulardii 250 mg 01/03/21 17:00 01/12/21 08:49 Saccharomyces Boulardii 250 Mg Capsule PO 250 mg BIDWM FELIBERTO Administration Sodium Chloride 10 ml 01/02/21 21:23 01/06/21 21:46 Sodium Chloride Flush 0.9% 10 Ml Syringe IVP 10 ml PRN PRN Administration NEEDED PER PROVIDER ORDERS Sodium Chloride 10 ml 01/03/21 01:00 01/12/21 08:51 Sodium Chloride Flush 0.9% 10 Ml Syringe IVP 10 ml 0100,0900,1700 FELIBERTO Administration - Lab Result Fish Bone Diagrams: 01/12/21 04:54 01/12/21 04:54 - Additional Planning My Orders: My Active Orders 01/11/21 11:03 Out of bed 3+ hours today [RC] TID 01/12/21 09:26 Telemetry- [RC] Q4HR 01/12/21 14:00 Furosemide [Lasix] 20 mg PO BIDDIURETIC 01/12/21 21:00 Apixaban [Eliquis] 5 mg PO BID 01/13/21 05:00 BMP - BASIC METABOLIC PANEL [CHEM] DAILYLAB CBC - COMP BLD CT W/AUTO DIFF [HEME] DAILYLAB 01/14/21 05:00 BMP - BASIC METABOLIC PANEL [CHEM] DAILYLAB CBC - COMP BLD CT W/AUTO DIFF [HEME] DAILYLAB 01/15/21 05:00 BMP - BASIC METABOLIC PANEL [CHEM] DAILYLAB CBC - COMP BLD CT W/AUTO DIFF [HEME] DAILYLAB Subjective - Subjective Patient Reports: Resting Comfortably Objective Vital Signs: Vital Signs - 24 hr 01/11/21 01/11/21 01/11/21 12:45 15:39 21:43 Temperature 36.5 C 36.5 C Heart Rate [ 69 71 Brachial] Heart Rate [ Radial] Respiratory 18 16 Rate Blood Pressure 107/51 L [Left Brachial artery] Blood Pressure 89/53 L 99/59 L 105/47 L [Right Brachial artery] O2 Saturation 98 98 01/11/21 01/12/21 01/12/21 23:39 07:27 07:43 Temperature 36.6 C 36.6 C Heart Rate [ 66 72 Brachial] Heart Rate [ 97 Radial] Respiratory 16 16 Rate Blood Pressure 113/45 L 114/52 L [Left Brachial artery] Blood Pressure 71/42 L [Right Brachial artery] O2 Saturation 96 94 01/12/21 08:50 Temperature Heart Rate [ 115 H Brachial] Heart Rate [ Radial] Respiratory Rate Blood Pressure 126/59 L [Left Brachial artery] Blood Pressure [Right Brachial artery] O2 Saturation Oxygen O2 Source Room air I&O (Last 24 Hrs): Intake and Output Totals x24h 01/10/21 01/11/21 01/12/21 23:59 23:59 23:59 Intake Total 1850 1630 535 Output Total 1650 2875 975 Balance 200 -1245 -440 General: Alert, Oriented x3, No acute distress HEENT: Atraumatic Neck: Supple Lymphatic: no adenopathy Neuro: Alert, Non Focal, Oriented Times 3 Cardiovascular: Regular rate, Normal S1, Normal S2 Respiratory: Chest non-tender, No respiratory distress Abdomen: Normal bowel sounds, Soft, No tenderness Extremities: Normal pulses Comments/Notes: reduced erythema and slight reduced swelling at sacral pressure ulcer - Results Results: Laboratory Results WBC 5.4 x10^3/uL (4.8-10.8) 01/12/21 04:54 RBC 3.85 10^6/uL (4.20-5.40) L 01/12/21 04:54 Hgb 11.4 g/dL (12.0-16.0) L 01/12/21 04:54 Hct 35.9 % (37.0-47.0) L 01/12/21 04:54 MCV 93.2 fL (81.0-99.0) 01/12/21 04:54 MCH 29.6 pg (27.0-31.0) 01/12/21 04:54 MCHC 31.8 g/dL (32.0-36.0) L 01/12/21 04:54 RDW 14.5 % (12.0-15.0) 01/12/21 04:54 Plt Count 114 10^3/uL (130-450) L 01/12/21 04:54 MPV 9.9 fL (7.9-10.8) 01/12/21 04:54 Neut # (Auto) 2.9 10^3/uL (1.5-6.6) 01/12/21 04:54 Lymph # (Auto) 1.6 10^3/uL (1.5-3.5) 01/12/21 04:54 [place] # (Auto) 0.7 10^3/uL (0.0-1.0) 01/12/21 04:54 Eos # (Auto) 0.1 10^3/uL (0.0-0.7) 01/12/21 04:54 Baso # (Auto) 0.1 10^3/uL (0.0-0.1) 01/12/21 04:54 Absolute Nucleated RBC 0.00 x10^3/uL 01/12/21 04:54 Nucleated RBC % 0.0 /100WBC 01/12/21 04:54 Manual Slide Review Indicated 01/07/21 06:05 WBC Morphology NORMAL APPEARANCE (NORMAL) 01/07/21 06:05 Platelet Estimate DECREASED (<130,000) (NORMAL) 01/07/21 06:05 Platelet Morphology NORMAL APPEARANCE (NORMAL) 01/07/21 06:05 RBC Morph Micro Appear NORMAL APPEARANCE (NORMAL) 01/07/21 06:05 D-Dimer > 1050.0 ng/mL (200.0-255.0) H 01/03/21 12:59 Sodium 136 mmol/L (135-145) 01/12/21 04:54 Potassium 3.6 mmol/L (3.5-5.0) 01/12/21 04:54 Chloride 101 mmol/L (101-111) 01/12/21 04:54 Carbon Dioxide 27 mmol/L (21-32) 01/12/21 04:54 Anion Gap 8.0 (6-13) 01/12/21 04:54 BUN 19 mg/dL (6-20) 01/12/21 04:54 Creatinine 0.7 mg/dL (0.4-1.0) 01/12/21 04:54 Estimated GFR (MDRD) 81 (>89) L 01/12/21 04:54 Glucose 104 mg/dL (70-100) H 01/12/21 04:54 Estimat Average Glucose 100 mg/dL (70-100) 01/03/21 05:54 Hemoglobin A1c % 5.1 % (4.27-6.07) 01/03/21 05:54 Lactic Acid 2.0 mmol/L (0.5-2.2) 01/03/21 11:51 Calcium 8.1 mg/dL (8.5-10.3) L 01/12/21 04:54 Magnesium 2.1 mg/dL (1.7-2.8) 01/09/21 20:00 Total Bilirubin 1.7 mg/dL (0.2-1.0) H 01/02/21 19:38 AST 39 IU/L (10-42) 01/02/21 19:38 ALT 17 IU/L (10-60) 01/02/21 19:38 Alkaline Phosphatase 64 IU/L (42-121) 01/02/21 19:38 Total Creatine Kinase 202 IU/L (22-269) 01/02/21 19:38 Troponin I High Sens 198.1 ng/L (2.3-14.8) H* 01/03/21 18:20 B-Natriuretic Peptide 1035 pg/mL (5-100) H 01/10/21 05:26 Total Protein 7.3 g/dL (6.7-8.2) 01/02/21 19:38 Albumin 3.1 g/dL (3.2-5.5) L 01/02/21 19:38 Globulin 4.2 g/dL (2.1-4.2) 01/02/21 19:38 Albumin/Globulin Ratio 0.7 (1.0-2.2) L 01/02/21 19:38 Triglycerides 65 mg/dL (-149) 01/04/21 05:54 Cholesterol 109 mg/dL (-199) 01/04/21 05:54 LDL Cholesterol, Calc 66 mg/dL (-129) 01/04/21 05:54 VLDL Cholesterol 13 mg/dL 01/04/21 05:54 HDL Cholesterol 30 mg/dL (60-) L 01/04/21 05:54 LDL/HDL Ratio 2.2 (<4.4) 01/04/21 05:54 Cholesterol/HDL Ratio 3.6 (<4.4) 01/04/21 05:54 TSH 5.86 uIU/mL (0.34-5.60) H 01/02/21 20:51 Free T4 0.92 ng/dL (0.58-1.64) 01/03/21 05:54 Urine Color YELLOW 01/02/21 21:08 Urine Clarity SL. CLOUDY (CLEAR) 01/02/21 21:08 Urine pH 6.0 PH (5.0-7.5) 01/02/21 21:08 Ur Specific [place] 1.015 (1.002-1.030) 01/02/21 21:08 Urine Protein NEGATIVE mg/dL (NEGATIVE) 01/02/21 21:08 Urine Glucose (UA) NEGATIVE mg/dL (NEGATIVE) 01/02/21 21:08 Urine Ketones NEGATIVE mg/dL (NEGATIVE) 01/02/21 21:08 Urine Occult Blood TRACE-INTA (NEGATIVE) 10/18/21 21:08 Urine Nitrite POSITIVE (NEGATIVE) H 01/02/21 21:08 Urine Bilirubin NEGATIVE (NEGATIVE) 01/02/21 21:08 Urine Urobilinogen 1 (NORMAL) E.U./dL (NORMAL) 01/02/21 21:08 Ur Leukocyte Esterase SMALL (NEGATIVE) H 01/02/21 21:08 Urine RBC 0-5 /HPF (0-5) 01/02/21 21:08 Urine WBC 6-10 /HPF (0-5) H 01/02/21 21:08 Ur Squamous Epith Cells NONE SEEN (<= Few) 01/02/21 21:08 Urine Bacteria Many /HPF (None Seen) H 01/02/21 21:08 Ur Microscopic Review INDICATED 01/02/21 21:08 Urine Culture Comments INDICATED 01/02/21 21:08 Nasal Adenovirus (PCR) NOT DETECTED 01/02/21 19:38 Nasal B. parapertussis DNA (PCR) NOT DETECTED 01/02/21 19:38 Nasal Coronavir 229E PCR NOT DETECTED 01/02/21 19:38 Nasal Coronavir HKU1 PCR NOT DETECTED 01/02/21 19:38 Nasal Coronavir NL63 PCR NOT DETECTED 01/02/21 19:38 Nasal Coronavir OC43 PCR NOT DETECTED 01/02/21 19:38 Nasal Enterovir/Rhinovir PCR NOT DETECTED 01/02/21 19:38 Nasal Influenza B PCR NOT DETECTED 01/02/21 19:38 Nasal Influenza A PCR NOT DETECTED 01/02/21 19:38 Nasal Parainfluen 1 PCR NOT DETECTED 01/02/21 19:38 Nasal Parainfluen 2 PCR NOT DETECTED 01/02/21 19:38 Nasal Parainfluen 3 PCR NOT DETECTED 01/02/21 19:38 Nasal Parainfluen 4 PCR NOT DETECTED 01/02/21 19:38 Nasal RSV (PCR) NOT DETECTED 01/02/21 19:38 Nasal B.pertussis DNA PCR NOT DETECTED 01/02/21 19:38 Nasal C.pneumoniae (PCR) NOT DETECTED 01/02/21 19:38 Fidel Human Metapneumo PCR NOT DETECTED 01/02/21 19:38 Nasal M.pneumoniae (PCR) NOT DETECTED 01/02/21 19:38 Nasal SARS-CoV-2 (PCR) NOT DETECTED 01/02/21 19:38 ABX Reporting Has patient been on IV antibiotics over the past 48 hours?: No Current Medications - Current Medications Current Medications: Active Medications Acetaminophen (Acetaminophen 325 Mg Tablet) 650 mg PO Q4HR PRN PRN Reason: Pain 1 to 4 Last Admin: 01/03/21 23:06 Dose: 650 mg Documented by: Apixaban (Apixaban 5 Mg Tablet) 5 mg PO BID [facility] Atorvastatin Calcium (Atorvastatin 40 Mg Tablet) 40 mg PO QPM [facility] Last Admin: 01/11/21 21:41 Dose: 40 mg Documented by: Carvedilol (Carvedilol 3.125 Mg Tablet) 3.125 mg PO BID [facility] Last Admin: 01/12/21 08:52 Dose: 3.125 mg Documented by: Furosemide (Furosemide 20 Mg Tablet) 20 mg PO BIDDIURETIC [facility] Multi-Ingredient Ointment (Zinc Oxide 20% Oint 30 Gm Tube) 1 applic TOP PRN PRN PRN Reason: Skin Care Multivitamins/Minerals (Multivitamin W/Minerals Tablet) 1 tab PO DAILYWM [facility] Last Admin: 01/12/21 08:47 Dose: 1 tab Documented by: Nystatin (Nystatin Powder 15 Gm) 1 applic TOP BID [facility] Last Admin: 01/12/21 08:52 Dose: 1 applic Documented by: Ondansetron HCl (Ondansetron Odt 4 Mg Tablet) 4 mg TL Q6HR PRN PRN Reason: Nausea / Vomiting Ondansetron HCl (Ondansetron 4 Mg/2 Ml Vial) 4 mg IVP Q6HR PRN PRN Reason: Nausea / Vomiting Polyethylene Glycol (Polyethylene Glycol 3350 17 Gm Packet) 17 gm PO DAILY [facility] Last Admin: 01/12/21 08:51 Dose: Not Given Documented by: Saccharomyces Boulardii (Saccharomyces Boulardii 250 Mg Capsule) 250 mg PO BIDWM [facility] Last Admin: 01/12/21 08:49 Dose: 250 mg Documented by: Sodium Chloride (Sodium Chloride Flush 0.9% 10 Ml Syringe) 10 ml IVP PRN PRN PRN Reason: NEEDED PER PROVIDER ORDERS Last Admin: 01/06/21 21:46 Dose: 10 ml Documented by: Sodium Chloride (Sodium Chloride Flush 0.9% 10 Ml Syringe) 10 ml IVP 0100,0900,1700 [facility] Last Admin: 01/12/21 08:51 Dose: 10 ml Documented by: Duloxetine HCl [Cymbalta] 60 mg PO DAILY 10/18/21
[2021-01-12] MEDS: ATORVASTATIN 40 MG TABLET PO SCH (20:57)
[2021-01-13 06:04] LABS: BASOPHILS % (AUTO) 0.8 %; EOSINOPHILS # (AUTO) 0.2 10^3/uL (0.0-0.7); HCT - HEMATOCRIT 35.8 % (37.0-47.0); HGB - HEMOGLOBIN 11.2 g/dL (12.0-16.0); LYMPHOCYTES # (AUTO) 1.6 10^3/uL (1.5-3.5); LYMPHOCYTES % (AUTO) 30.4 %; MEAN CORPUSCULAR HEMOGLOBIN 29.2 pg (27.0-31.0); MEAN CORPUSCULAR HGB CONC 31.3 g/dL (32.0-36.0); MEAN CORPUSCULAR VOLUME 93.2 fL (81.0-99.0); MEAN PLATELET VOLUME 10.3 fL (7.9-10.8); MONOCYTES # (AUTO) 0.7 10^3/uL (0.0-1.0); MONOCYTES % (AUTO) 13.1 %; NEUTROPHILS # (AUTO) 2.8 10^3/uL (1.5-6.6); NEUTROPHILS % (AUTO) 52.5 %; PLT - PLATELET COUNT 113 10^3/uL (130-450); RED BLOOD COUNT 3.84 10^6/uL (4.20-5.40); RED CELL DISTRIBUTION WIDTH 14.5 % (12.0-15.0); WHITE BLOOD COUNT 5.3 x10^3/uL (4.8-10.8)
[2021-01-13 06:15] LABS: CALCIUM 8.1 mg/dL (8.5-10.3); CREATININE 0.6 mg/dL (0.4-1.0); POTASSIUM 3.6 mmol/L (3.5-5.0)
[2021-01-13] MEDS: MULTIVITAMIN W/MINERALS TABLET PO SCH (10:11)
[2021-01-13] MEDS: FUROSEMIDE 20 MG TABLET PO SCH (10:11)
[2021-01-13] MEDS: APIXABAN 5 MG TABLET PO SCH ×2 (10:12→21:13)
[2021-01-13] MEDS: carvediloL 3.125 MG TABLET PO SCH ×2 (10:12→21:13)
[2021-01-13] MEDS: SACCHAROMYCES BOULARDII 250 MG CAPSULE PO SCH ×2 (10:12→16:31)
[2021-01-13] MEDS: NYSTATIN POWDER 15 GM TOP SCH ×2 (10:13→21:13)
[2021-01-13] MEDS: polyethylene glycoL 3350 17 GM PACKET PO SCH (10:13)
[2021-01-13] MEDS: SODIUM CHLORIDE FLUSH 0.9% 10 ML SYRINGE IVP SCH ×3 (10:15→23:34)
--- NOTE | 2021-01-13 14:36 | PROVIDER PROGRESS NOTE ---
Assessment/Plan - Problem List (1) Systolic heart failure Assessment/Plan: 01-13,Patient reported she feels good, She denies shortness of breathing. We will continue Coreg, continue daily Lasix. Patient is hemodynamic stable, consult with social work for discharge planning. 01-12 Patient reported she felt shortness of breathing. Chest x-ray show increased pulmonary congestion. Patient blood pressure become normal range. We will increase his Lasix 20 mg twice daily p.o. On today, Closely vital signs monitor. We will also continue monitor tech, Continue Coreg. out of bed, encourage pt walk safely, continue PT/OT 01-11 Patient is hemodynamic stable, and she feel comfortable. Patient is ready for discharge to SNF. continue Coreg and lasix. 1025 Patient reported she feel comfortable. Patient had 95% oxygen saturation on room air. Patient was ordered low dosage Coreg by another provider for management of her heart failure. Since patient blood pressure can tolerate this low dosage Coreg, will continue. Patient may follow-up with rotary shear cutter as outpatient. 01/06 Patient has no respiratory distress, She had a 95% oxygen saturation on room air. We will continue hold metoprolol, Lasix on today for her soft blood pressure. pt is pending for d/c to SNF, consult with director social welfare Disposition planning. 01/05 Patient reported she feels good, Patient has no respiratory distress. [place] use the patient still had soft blood pressure, We will continue hold metoprolol, Lasix. 01/04 Echo show patient had 40 to 45% of EF. This is new to pt. Because of patient's hypotension, will hold Lasix, metoprolol, Continue ow-sodium diet, Strict I's and O's and daily weights. Continue telemetry and vital signs monitor. 01/03 pt present generalized weakness, Bilateral lower extremity edema, Sig nificant elevated BNP, We will finish echo study, continue Lasix, Low-sodium diet, Strict I's and O's and daily weights. Continue telemetry and vital signs monitor (2)hypotension 01-12 resolved. 102,resolved. patient has history of soft blood pressure. Patient is asympt omatic. Today patient systolic blood pressure is over 100. 01-06 improved. Patient is asymptomatic, We will continue vital signs monitor, continue hold Lasix and metoprolol now. 102 Improved, Systolic blood pressure is 97. Patient report she usually run low Blood pressure for her for family. Patient is asymptomatic. We will hold patient blood pressure medicine, Continue vital signs monitor. 01/04 vital show pt has hypotension. pt report she has hx of hypotension and her family has the similar hx. Patient is asymptomatic, patient feed by herself, She had appropriate conversation with me, She denies dizziness, lightheaded, chest pain. We will hold Blood pressure medicine metoprolol, Lasix now. order 500cc NS IV bolus, continue closely vital monitor. (3) elevated troponin 1021, Patient denying chest pain, Troponin now is treaded down, We will switch Lovenox to Eliquis. Continue telemetry and vital signs monitor 01/04 trended down, pt denies chest pain, continue Lovenox for total 48 hours, then switch to Eliquis. Initial troponin was 180 and recheck one hour later was 203, Continue elevated to 300. Her EKG Show V4 V5 st segment depression, Soft blood pressure, although pt denies chest pain. We have no patient previous EKG compared. At this time we will continue monitor troponin, start with Lovenox, Lipitor, Beta block, adjust meds dosage as pt's HR and BP measure. Unfortunately we have no provider do stress test in the inpatient, We will finish echo study, we advise the patient to have stress test as outpatient. (4) Afib 01-12 continue tele monitor, continue coreg and eliquis. 1021, HR Is controlled at 71. We will continue Eliquis. 01-04, HR is 90-100. Because the patient hypotension, metoprolol is on hold. We may give patient digoxin if patient's a fibrillation is uncontrolled. Continue Lovenox now, Continue monitor tech She is found to be in a fibrillation which appears to be a new diagnosis. She is rate controlled we will start her on low-dose metoprolol given she is currently normotensive. TSH is elevated but Free T4 is normal. Monitor on telemetry. night provider discussed anticoagulation with her and she would like to think about this a little more. she is on lovenox for her DVT as well. (5) cellulitis with Chronic venous stasis dermatitis of both lower extremities Conclusion/Plan: 01-11, resolved for her acute cellulitis. Patient has a history of chronic Bilateral lower extremity lymphedema with Chronic venous stasis. Hold antibiotics 1026, Significantly improved as her baseline. Patient has a history of Bilateral lower extremity lymphedema with Chronic venous stasis. Blood cultures is negative for bacteremia. Patient has no fever, patient's WBC is in the normal range. 10, improved. WBC is normal arrange, Blood culture is negative for bacteremia, continue anceft IV 1021, continue to improve, Swelling and erythema are almost resolved. Blood cultures is negative. We will switch antibiotics to p.o. on tomorrow. 1020, improved, Patient's lower extremity erythema, swelling are reduced. Wound culture is pending, blood culture is negative for bacteremia. We will continue intravenous antibiotics. Patient present Erythema, warmth, redness at her lower extremities. suspension she had cellulitis. pt has hx of cellulitis at her legs. start with ancef, blood culture, check lactic acid, specially pt has soft BP. (6)DVT 1020, we will change to Eliquis for 7 days With 10 mg twice daily. 1020, we will continue treated with Lovenox now then we will switch Eliquis on tomorrow Patient has left Lower extremity DVT, We will start with Lovenox. Patient has allergy with IV contrast. pt has No respiratory distress, no tachycardia or tachypnea, We will check D-dimer, hold angiogram of chest at this point. (7)pressure ulcers 01-13 at back sacral area has open pressure ulcer bilaterally linked together. In the middle, there is slight deep wound nearly 0.2 cm. we consulted with surgeon, and asked surgeon came to see pt twice, both times surgeon recommended daily dressing change without wound debridement. Patient has no fever, no pain, normal range WBC. We hold antibiotics, we continue dressing change per surgeon's recommendation 01-11, improved, continue dressing change. we consulted with surgeon before, per surgeon's advised, no surgical intervention needed. 1026, Continue to improve. We will continue nurse dressing change, Follow-up continue with dressing change in the nurse facility. patient may follow-up with wound care as outpatient. 01-06, Improved, We will continue daily dressing change, Plan discharge patient to SNF, continue wound care, patient may follow-up wound care as outpatient 102, Surgeon recommendation Dressing change, We will follow with his recommendations With dressing change, Continue turn and reposition for skin care As well. 102, we consulted with surgeon, Surgeon suggested no any procedure for patient at this time. We consulted with [facility], we will continue dressing change, will continue ten and reposition of patient, We will continue nurse skin care Patient Present severe decubitus ulcers at sacral area. We will consult with the wound care, and do wound culture, we consulted with surgeon (8) Hypokalemia We will replace this orally as she is being diuresed. We will also check a magnesium. (9) Asymptomatic bacteriuria Conclusion/Plan: She has denies dysuria. we will followup with UA culture. (10)generalized Weakness 01-10, We will continue physical therapist and occupational therapist evaluation and treatment, continue consult with social work For disposition planning, patient is a pending for SNF 01/06 Continue physical therapist occupational therapist consult, Plan discharge patient to SNF, Consult with social work for disposition planning. Patient present Significant weakness, Difficulty to care for her self. Per patient's daughter report, patient's house has lots of stool, she can not go to clean. Nurse found pt has very dirty hair with possible contamination of stool in her hair. Patient and patient's daughter all agree patient could be discharged to SNF if she is qualified. Continue consult with PT and OT. - Current Meds Current Meds: Current Medications Generic Name Dose Route Start Last Admin Trade Name Freq PRN Reason Stop Dose Admin Acetaminophen 650 mg 01/02/21 21:23 01/03/21 23:06 Acetaminophen 325 Mg Tablet PO 650 mg Q4HR PRN Administration Pain 1 to 4 Apixaban 5 mg 01/12/21 21:00 01/13/21 10:12 Apixaban 5 Mg Tablet PO 5 mg BID FELIBERTO Administration Atorvastatin Calcium 40 mg 01/03/21 21:00 01/12/21 20:57 Atorvastatin 40 Mg Tablet PO 40 mg QPM FELIBERTO Administration Carvedilol 3.125 mg 01/10/21 00:55 01/13/21 10:12 Carvedilol 3.125 Mg Tablet PO 3.125 mg BID FELIBERTO Administration Furosemide 20 mg 01/13/21 09:00 01/13/21 10:11 Furosemide 20 Mg Tablet PO 20 mg DAILY FELIBERTO Administration Multi-Ingredient Ointment 1 applic 01/03/21 11:40 01/13/21 05:39 Zinc Oxide 20% Oint 30 Gm Tube TOP 1 applic PRN PRN Administration Skin Care Multivitamins/Minerals 1 tab 01/06/21 09:00 01/13/21 10:11 Multivitamin W/Minerals Tablet PO 1 tab DAILYWM FELIBERTO Administration Nystatin 1 applic 01/02/21 23:00 01/13/21 10:13 Nystatin Powder 15 Gm TOP 1 applic BID FELIBERTO Administration Polyethylene Glycol 17 gm 01/06/21 09:00 01/13/21 10:13 Polyethylene Glycol 3350 17 Gm Packet PO Not Given DAILY FELIBERTO Saccharomyces Boulardii 250 mg 01/03/21 17:00 01/13/21 10:12 Saccharomyces Boulardii 250 Mg Capsule PO 250 mg BIDWM FELIBERTO Administration Sodium Chloride 10 ml 01/02/21 21:23 01/06/21 21:46 Sodium Chloride Flush 0.9% 10 Ml Syringe IVP 10 ml PRN PRN Administration NEEDED PER PROVIDER ORDERS Sodium Chloride 10 ml 01/03/21 01:00 01/13/21 10:15 Sodium Chloride Flush 0.9% 10 Ml Syringe IVP 10 ml 0100,0900,1700 FELIBERTO Administration - Lab Result Fish Bone Diagrams: 01/13/21 05:28 01/13/21 05:28 - Additional Planning My Orders: My Active Orders 01/12/21 21:00 Apixaban [Eliquis] 5 mg PO BID 01/13/21 09:00 Furosemide [Lasix] 20 mg PO DAILY 01/14/21 05:00 BMP - BASIC METABOLIC PANEL [CHEM] DAILYLAB CBC - COMP BLD CT W/AUTO DIFF [HEME] DAILYLAB 01/15/21 05:00 BMP - BASIC METABOLIC PANEL [CHEM] DAILYLAB CBC - COMP BLD CT W/AUTO DIFF [HEME] DAILYLAB Subjective - Subjective Patient Reports: Feeling Better, Resting Comfortably, No Complaints Objective Vital Signs: Vital Signs - 24 hr 01/12/21 01/12/21 01/12/21 15:07 15:31 19:31 Temperature 36.8 C 36.7 C Heart Rate [ 72 77 58 L Brachial] Respiratory 20 21 Rate Blood Pressure 104/47 L 106/67 [Left Brachial artery] Blood Pressure 88/44 L 97/53 L [Right Brachial artery] O2 Saturation 98 98 01/12/21 01/12/21 01/13/21 21:00 23:39 05:36 Temperature 36.8 C 36.8 C Heart Rate [ 77 81 77 Brachial] Respiratory 18 18 Rate Blood Pressure 99/34 L 94/40 L [Left Brachial artery] Blood Pressure 92/44 L 100/39 L [Right Brachial artery] O2 Saturation 95 94 01/13/21 01/13/21 08:15 11:48 Temperature 36.5 C 36.3 C L Heart Rate [ 66 68 Brachial] Respiratory 18 18 Rate Blood Pressure 105/45 L 114/71 [Left Brachial artery] Blood Pressure [Right Brachial artery] O2 Saturation 96 95 Oxygen O2 Source Room air I&O (Last 24 Hrs): Intake and Output Totals x24h 01/11/21 01/12/21 01/13/21 23:59 23:59 23:59 Intake Total 1630 1125 1375 Output Total 2875 3075 700 Balance -1245 -1950 675 General: Alert, Oriented x3, Cooperative, No acute distress HEENT: Atraumatic Neck: Supple Lymphatic: no adenopathy Neuro: Alert, Non Focal, Oriented Times 3 Cardiovascular: Regular rate, Normal S1, Normal S2 Respiratory: Chest non-tender, No respiratory distress Abdomen: Normal bowel sounds, Soft Extremities: Normal pulses Comments/Notes: at back sacral area has open pressure ulcer bilaterally linked together. In the middle, there is slight deep wound nearly 0.2 cm. we consulted with surgeon, and asked surgeon came to see pt twice, both times surgeon recommended daily dressing change without wound debridement. - Results Results: Laboratory Results WBC 5.3 x10^3/uL (4.8-10.8) 01/13/21 05:28 RBC 3.84 10^6/uL (4.20-5.40) L 01/13/21 05:28 Hgb 11.2 g/dL (12.0-16.0) L 01/13/21 05:28 Hct 35.8 % (37.0-47.0) L 01/13/21 05:28 MCV 93.2 fL (81.0-99.0) 01/13/21 05:28 MCH 29.2 pg (27.0-31.0) 01/13/21 05:28 MCHC 31.3 g/dL (32.0-36.0) L 01/13/21 05:28 RDW 14.5 % (12.0-15.0) 01/13/21 05:28 Plt Count 113 10^3/uL (130-450) L 01/13/21 05:28 MPV 10.3 fL (7.9-10.8) 01/13/21 05:28 Neut # (Auto) 2.8 10^3/uL (1.5-6.6) 01/13/21 05:28 Lymph # (Auto) 1.6 10^3/uL (1.5-3.5) 01/13/21 05:28 [place] # (Auto) 0.7 10^3/uL (0.0-1.0) 01/13/21 05:28 Eos # (Auto) 0.2 10^3/uL (0.0-0.7) 01/13/21 05:28 Baso # (Auto) 0.0 10^3/uL (0.0-0.1) 01/13/21 05:28 Absolute Nucleated RBC 0.00 x10^3/uL 01/13/21 05:28 Nucleated RBC % 0.0 /100WBC 01/13/21 05:28 Manual Slide Review Indicated 01/07/21 06:05 WBC Morphology NORMAL APPEARANCE (NORMAL) 01/07/21 06:05 Platelet Estimate DECREASED (<130,000) (NORMAL) 01/07/21 06:05 Platelet Morphology NORMAL APPEARANCE (NORMAL) 01/07/21 06:05 RBC Morph Micro Appear NORMAL APPEARANCE (NORMAL) 01/07/21 06:05 D-Dimer > 1050.0 ng/mL (200.0-255.0) H 01/03/21 12:59 Sodium 137 mmol/L (135-145) 01/13/21 05:28 Potassium 3.6 mmol/L (3.5-5.0) 01/13/21 05:28 Chloride 103 mmol/L (101-111) 01/13/21 05:28 Carbon Dioxide 26 mmol/L (21-32) 01/13/21 05:28 Anion Gap 8.0 (6-13) 01/13/21 05:28 BUN 23 mg/dL (6-20) H 01/13/21 05:28 Creatinine 0.6 mg/dL (0.4-1.0) 01/13/21 05:28 Estimated GFR (MDRD) 96 (>89) 01/13/21 05:28 Glucose 103 mg/dL (70-100) H 01/13/21 05:28 Estimat Average Glucose 100 mg/dL (70-100) 01/03/21 05:54 Hemoglobin A1c % 5.1 % (4.27-6.07) 01/03/21 05:54 Lactic Acid 2.0 mmol/L (0.5-2.2) 01/03/21 11:51 Calcium 8.1 mg/dL (8.5-10.3) L 01/13/21 05:28 Magnesium 2.1 mg/dL (1.7-2.8) 01/09/21 20:00 Total Bilirubin 1.7 mg/dL (0.2-1.0) H 01/02/21 19:38 AST 39 IU/L (10-42) 01/02/21 19:38 ALT 17 IU/L (10-60) 01/02/21 19:38 Alkaline Phosphatase 64 IU/L (42-121) 01/02/21 19:38 Total Creatine Kinase 202 IU/L (22-269) 01/02/21 19:38 Troponin I High Sens 198.1 ng/L (2.3-14.8) H* 01/03/21 18:20 B-Natriuretic Peptide 1035 pg/mL (5-100) H 01/10/21 05:26 Total Protein 7.3 g/dL (6.7-8.2) 01/02/21 19:38 Albumin 3.1 g/dL (3.2-5.5) L 01/02/21 19:38 Globulin 4.2 g/dL (2.1-4.2) 01/02/21 19:38 Albumin/Globulin Ratio 0.7 (1.0-2.2) L 01/02/21 19:38 Triglycerides 65 mg/dL (-149) 01/04/21 05:54 Cholesterol 109 mg/dL (-199) 01/04/21 05:54 LDL Cholesterol, Calc 66 mg/dL (-129) 01/04/21 05:54 VLDL Cholesterol 13 mg/dL 01/04/21 05:54 HDL Cholesterol 30 mg/dL (60-) L 01/04/21 05:54 LDL/HDL Ratio 2.2 (<4.4) 01/04/21 05:54 Cholesterol/HDL Ratio 3.6 (<4.4) 01/04/21 05:54 TSH 5.86 uIU/mL (0.34-5.60) H 01/02/21 20:51 Free T4 0.92 ng/dL (0.58-1.64) 01/03/21 05:54 Urine Color YELLOW 01/02/21 21:08 Urine Clarity SL. CLOUDY (CLEAR) 01/02/21 21:08 Urine pH 6.0 PH (5.0-7.5) 01/02/21 21:08 Ur Specific [place] 1.015 (1.002-1.030) 01/02/21 21:08 Urine Protein NEGATIVE mg/dL (NEGATIVE) 01/02/21 21:08 Urine Glucose (UA) NEGATIVE mg/dL (NEGATIVE) 01/02/21 21:08 Urine Ketones NEGATIVE mg/dL (NEGATIVE) 01/02/21 21:08 Urine Occult Blood TRACE-INTA (NEGATIVE) 01/02/21 21:08 Urine Nitrite POSITIVE (NEGATIVE) H 01/02/21 21:08 Urine Bilirubin NEGATIVE (NEGATIVE) 01/02/21 21:08 Urine Urobilinogen 1 (NORMAL) E.U./dL (NORMAL) 01/02/21 21:08 Ur Leukocyte Esterase SMALL (NEGATIVE) H 01/02/21 21:08 Urine RBC 0-5 /HPF (0-5) 01/02/21 21:08 Urine WBC 6-10 /HPF (0-5) H 01/02/21 21:08 Ur Squamous Epith Cells NONE SEEN (<= Few) 01/02/21 21:08 Urine Bacteria Many /HPF (None Seen) H 01/02/21 21:08 Ur Microscopic Review INDICATED 01/02/21 21:08 Urine Culture Comments INDICATED 01/02/21 21:08 Nasal Adenovirus (PCR) NOT DETECTED 01/02/21 19:38 Nasal B. parapertussis DNA (PCR) NOT DETECTED 01/02/21 19:38 Nasal Coronavir 229E PCR NOT DETECTED 01/02/21 19:38 Nasal Coronavir HKU1 PCR NOT DETECTED 01/02/21 19:38 Nasal Coronavir NL63 PCR NOT DETECTED 01/02/21 19:38 Nasal Coronavir OC43 PCR NOT DETECTED 01/02/21 19:38 Nasal Enterovir/Rhinovir PCR NOT DETECTED 01/02/21 19:38 Nasal Influenza B PCR NOT DETECTED 01/02/21 19:38 Nasal Influenza A PCR NOT DETECTED 01/02/21 19:38 Nasal Parainfluen 1 PCR NOT DETECTED 01/02/21 19:38 Nasal Parainfluen 2 PCR NOT DETECTED 01/02/21 19:38 Nasal Parainfluen 3 PCR NOT DETECTED 01/02/21 19:38 Nasal Parainfluen 4 PCR NOT DETECTED 01/02/21 19:38 Nasal RSV (PCR) NOT DETECTED 01/02/21 19:38 Nasal B.pertussis DNA PCR NOT DETECTED 01/02/21 19:38 Nasal C.pneumoniae (PCR) NOT DETECTED 01/02/21 19:38 Fidel Human Metapneumo PCR NOT DETECTED 01/02/21 19:38 Nasal M.pneumoniae (PCR) NOT DETECTED 01/02/21 19:38 Nasal SARS-CoV-2 (PCR) NOT DETECTED 01/02/21 19:38 ABX Reporting Has patient been on IV antibiotics over the past 48 hours?: No Current Medications - Current Medications Current Medications: Active Medications Acetaminophen (Acetaminophen 325 Mg Tablet) 650 mg PO Q4HR PRN PRN Reason: Pain 1 to 4 Last Admin: 01/03/21 23:06 Dose: 650 mg Documented by: Apixaban (Apixaban 5 Mg Tablet) 5 mg PO BID [facility] Last Admin: 01/13/21 10:12 Dose: 5 mg Documented by: Atorvastatin Calcium (Atorvastatin 40 Mg Tablet) 40 mg PO QPM [facility] Last Admin: 01/12/21 20:57 Dose: 40 mg Documented by: Carvedilol (Carvedilol 3.125 Mg Tablet) 3.125 mg PO BID [facility] Last Admin: 01/13/21 10:12 Dose: 3.125 mg Documented by: Furosemide (Furosemide 20 Mg Tablet) 20 mg PO DAILY [facility] Last Admin: 01/13/21 10:11 Dose: 20 mg Documented by: Multi-Ingredient Ointment (Zinc Oxide 20% Oint 30 Gm Tube) 1 applic TOP PRN PRN PRN Reason: Skin Care Last Admin: 01/13/21 05:39 Dose: 1 applic Documented by: Multivitamins/Minerals (Multivitamin W/Minerals Tablet) 1 tab PO DAILYWM [facility] Last Admin: 01/13/21 10:11 Dose: 1 tab Documented by: Nystatin (Nystatin Powder 15 Gm) 1 applic TOP BID [facility] Last Admin: 01/13/21 10:13 Dose: 1 applic Documented by: Ondansetron HCl (Ondansetron Odt 4 Mg Tablet) 4 mg TL Q6HR PRN PRN Reason: Nausea / Vomiting Ondansetron HCl (Ondansetron 4 Mg/2 Ml Vial) 4 mg IVP Q6HR PRN PRN Reason: Nausea / Vomiting Polyethylene Glycol (Polyethylene Glycol 3350 17 Gm Packet) 17 gm PO DAILY [facility] Last Admin: 01/13/21 10:13 Dose: Not Given Documented by: Saccharomyces Boulardii (Saccharomyces Boulardii 250 Mg Capsule) 250 mg PO BIDWM [facility] Last Admin: 01/13/21 10:12 Dose: 250 mg Documented by: Sodium Chloride (Sodium Chloride Flush 0.9% 10 Ml Syringe) 10 ml IVP PRN PRN PRN Reason: NEEDED PER PROVIDER ORDERS Last Admin: 01/06/21 21:46 Dose: 10 ml Documented by: Sodium Chloride (Sodium Chloride Flush 0.9% 10 Ml Syringe) 10 ml IVP 0100,0900,1700 [facility] Last Admin: 01/13/21 10:15 Dose: 10 ml Documented by: Duloxetine HCl [Cymbalta] 60 mg PO DAILY 01/02/21
[2021-01-13] MEDS: ATORVASTATIN 40 MG TABLET PO SCH (21:13)
[2021-01-14 06:27] LABS: BASOPHILS # (AUTO) 0.1 10^3/uL (0.0-0.1); BASOPHILS % (AUTO) 0.8 %; EOSINOPHILS # (AUTO) 0.2 10^3/uL (0.0-0.7); HCT - HEMATOCRIT 36.7 % (37.0-47.0); HGB - HEMOGLOBIN 11.4 g/dL (12.0-16.0); LYMPHOCYTES # (AUTO) 1.7 10^3/uL (1.5-3.5); LYMPHOCYTES % (AUTO) 29.2 %; MEAN CORPUSCULAR HEMOGLOBIN 29.1 pg (27.0-31.0); MEAN CORPUSCULAR HGB CONC 31.1 g/dL (32.0-36.0); MEAN CORPUSCULAR VOLUME 93.6 fL (81.0-99.0); MEAN PLATELET VOLUME 10.3 fL (7.9-10.8); MONOCYTES # (AUTO) 0.7 10^3/uL (0.0-1.0); MONOCYTES % (AUTO) 11.4 %; NEUTROPHILS # (AUTO) 3.3 10^3/uL (1.5-6.6); NEUTROPHILS % (AUTO) 55.4 %; PLT - PLATELET COUNT 126 10^3/uL (130-450); RED BLOOD COUNT 3.92 10^6/uL (4.20-5.40); RED CELL DISTRIBUTION WIDTH 14.4 % (12.0-15.0)
[2021-01-14 06:37] LABS: CALCIUM 8.1 mg/dL (8.5-10.3); CREATININE 0.6 mg/dL (0.4-1.0); POTASSIUM 3.4 mmol/L (3.5-5.0)
[2021-01-14] MEDS: MULTIVITAMIN W/MINERALS TABLET PO SCH (08:34)
[2021-01-14] MEDS: SACCHAROMYCES BOULARDII 250 MG CAPSULE PO SCH (08:35)
[2021-01-14] MEDS: APIXABAN 5 MG TABLET PO SCH (08:35)
[2021-01-14] MEDS: FUROSEMIDE 20 MG TABLET PO SCH (08:36)
[2021-01-14] MEDS: carvediloL 3.125 MG TABLET PO SCH (08:36)
[2021-01-14] MEDS: SODIUM CHLORIDE FLUSH 0.9% 10 ML SYRINGE IVP SCH (08:37)
[2021-01-14] MEDS: NYSTATIN POWDER 15 GM TOP SCH (08:37)
[2021-01-14] MEDS: polyethylene glycoL 3350 17 GM PACKET PO SCH (08:37)
[2021-01-14] MEDS ORDERED: POTASSIUM CHLOR 10 MEQ/100 ML 10 MEQ/100 ML BAG IV SCH (10:00)
--- NOTE | 2021-01-14 11:20 | Discharge Plan ---
Discharge Plan for SNF / [facility] - Discharge Plan And Transition Orders Problem Reviewed?: Yes Disposition: 03 SNF DC/Xfer Condition: Fair Allergies and Adverse Reactions: Allergies Allergy/AdvReac Type Severity Reaction Status Date / Time No Known Drug Allergies Allergy Verified 01/02/21 18:50 Health Concerns: Patient was admitted with weakness and congestive heart failure, we found depressed LV ejection fraction of 40-45% by Echo. She still needs further evaluation by Signs Sales Representative as an outpatient (with a stress test or coronary angiogram). Has DVT and leg cellulitis. Being discharged to a correction facility to continue treatment of the cellulitis of legs and a sacral decubitus and for PT. Plan of Treatment: As above. Care Goals: Improvement in symptoms and stabilization are the goals. Assessment: The patient understands and is agreeable with the plan. Orders for correction facility provided here. - SNF / [facility] Transition Orders Admit to (Facility): [facility] Discharge Diagnosis: (1) Systolic heart failure On new Coreg, diuresis to continue (2) Hypotension She runs "soft" BPs chronically (3) New onset Afib Coreg and Eliquis started (4) Cellulitis with chronic venous stasis dermatitis of both lower extremities Daily dressing changes (5)DVT, L leg On new Eliquis (6) Sacral decubitus pressure ulcers Daily dressing changes, turn, reposition (7) Hypokalemia Replaced (8) Asymptomatic bacteriuria Not treated (9) Generalized Weakness Needs PT Medicare Certification Statement: I certify that Post Hospital correction care is medically necessary on a continuing basis for any of the conditions for which she/he is receiving care during hospitalization. Notify PCP of admission and forward orders to primary provider for signature. Weight on admission and: Weekly Call PCP immediately if weight increases by: 5 kg Other Notification Orders: Call PCP immediately if patient develops dyspnea, chest pain/tightness or edema. House Bowel Program: Yes Additional Bowel Program Orders: If no BM after 2 days, nurse may give M.O.M. 30ml PO PRN and/or ducolax Supp 1 NV and/or DANNY 250mg P.O., and/or senna 1-2 tabs PO. On day 3 nurse may give repeat above order until residents constipation is resolved. Annual Influenza Vaccine (between Nov 16 and June 15): Yes Two-step PPD per [facility] [phone] or approved exception documents: Yes Treatments & Other Orders: Daily PT. Leg dressing changes daily. Sacral decubitus care daily Lab Tests or X-ray Orders: BNP every Mon Medication Orders: PLEASE REFER TO THE DISCHARGE MEDICATION LIST. Insulin Orders?: No - Medications New Prescriptions: carvediloL [Coreg] 3.125 mg PO BID #60 tablet Apixaban [Eliquis] 5 mg PO BID #60 tablet Furosemide [Lasix] 20 mg PO DAILY #30 tablet Atorvastatin [Lipitor] 40 mg PO QPM #30 tablet Nystatin [Nystop] 1 applic TOP BID #1 bottle Multivitamin W/Minerals [Theragran M] 1 tab PO DAILYWM #30 tablet Zinc Oxide 20% Oint [Zinc Oxide] 1 applic TOP PRN PRN #1 bottle PRN Reason: Skin Care - Diet Type: No added salt Texture: Regular Liquids: Thin May have monthly special meal: Yes - Therapies | Activity Therapy: Evaluation | Treat if indicated: PT Rehabilitation Potential: Maximize functional status Activity: Activity as Tolerated Weight Bearing: Full Weight Assistance Devices: Walker Follow Up: See PCP for a hospital follow up appointment in 1-2 weeks and for a new referral to Cardiology.
[2021-01-14] MEDS ORDERED: POTASSIUM CHLORIDE 20 MEQ TABLET PO ONE (11:23)
[2021-01-14 12:23] VITALS: BP 91/43
--- NOTE | 2021-01-14 12:45 | DISCHARGE SUMMARY ---
Discharge Summary Admit Date: 01/02/21 Discharge Date: 01/14/21 Discharging Provider: Dr Betzy Cox Primary Care Provider: Unknown, she could not remember Code Status: Attempt Resuscitation Condition at Discharge: Fair Discharge Disposition: 03 SNF DC/Xfer - HPI History of Present Illness: From the admission H&P of Dr. Brendan Paredesf: This is a 80-year-old female with a past medical history significant for chronic lymphedema, panic attacks who presents today due to worsening weakness. She states this has been going on now for quite a few weeks and today her daughter felt that she should be evaluated. The patient states she lives at home alone. She has had chronic lymphedema for the past 6 or 7 years. She had a left hip replacement done last year and currently ambulates with a walker at baseline. She states she has progressive generalized weakness over the past few weeks where she has become more sedentary. Her daughter, Karyna, is her primary caregiver and she has been unable to care for her any longer. The patient states she normally sits in a chair for most of the day but will get up as needed. She does not believe her legs are more edematous than usual. She denies any chest pain, dyspnea, palpitations, dizziness, lightheadedness. Reports no dysuria, urgency, frequency. She denies any prior cardiac history and denies a history of atrial fibrillation. She states she is only on duloxetine for history of panic attacks. She cannot remember the name of her primary care physician but she has not seen them in one year. She states that she does not want to go to [facility]. She prefers to eventually go home with caregivers. She has previously looked into that but she states it is very difficult to find caregivers at this time. In the emergency department, she is noted to be afebrile. Her heart rate was in the 80s but she was in atrial fibrillation. She was normotensive and not tachypneic. She was saturating well on room air. Labs were significant for potassium of 3.0 and a troponin of 180.6. This was rechecked 1 hour later and it increased to 203.4. Her BNP was 1844. Chest x-ray showed no acute abn ormalities. Her EKG revealed atrial fibrillation with flattening of T waves in the lateral leads and PVCs. Given the above findings, medicine was consulted for admission. I did discuss goals of care with the patient and she is not sure what she wants at this time and therefore she will be made a full code. - HOSPITAL COURSE Hospital Course: (1) Systolic heart failure, acute Echo this admission showed pt has LVEF of 40 to 45%. This is new for this pt. Her troponins were elevated but flat, consistent with CHF, ruling her out for acute coronary syndrome. She diuresed and had 95% oxygen saturation on room air at vrest and with activity and did not need home O2 ordered. We started then stopped metoprolol and Lasix due to soft blood pressure. Then we used very low doses of B-jason (Coreg 3.125 bid) and Lasix 20 mg po. She was told she needs a refferal to Cardiology for further evaluation and management of her (new) systolic heart failure and she was agreeable to this. (2) Hypotension She runs "soft" BPs chronically (3) New onset Afib She developed paroxysmal Afib, seen on telemetry, did not feel palpitations. Coreg and Eliquis were started and she was discharged on these. (4) Cellulitis She was started on empiric Ancef on 01/03/21 and changed to Cephalexin 500mg PO four times daily on 01/07/21 and discharged on this. Blood culture were negative to date for bacteremia. (5) Chronic venous stasis dermatitis of both lower extremities We ordered leg elevation and daily dressing changes (6) DVT, L leg Doppler of the swollen leg was done revealing a DVT. She was started on new Eliquis (7) Sacral decubitus pressure ulcers She presented with this. We ordered daily dressing changes, turning, repositioning. (8) Hypokalemia Replaced and corrected (9) Generalized Weakness Needs PT (10) Asymptomatic bacteriuria Not treated - ALLERGIES Allergies/Adverse Reactions: Allergies Allergy/AdvReac Type Severity Reaction Status Date / Time No Known Drug Allergies Allergy Verified 01/02/21 18:50 - MEDICATIONS Home Medications: Ambulatory Orders Medication Instructions Recorded Confirmed Duloxetine HCl [Cymbalta] 60 mg PO DAILY 01/02/21 01/02/21 Apixaban [Eliquis] 5 mg PO BID #60 tablet 01/14/21 Atorvastatin [Lipitor] 40 mg PO QPM #30 tablet 01/14/21 Furosemide [Lasix] 20 mg PO DAILY #30 tablet 01/14/21 Multivitamin W/Minerals [Theragran 1 tab PO DAILYWM #30 tablet 01/14/21 M] Nystatin [Nystop] 1 applic TOP BID #1 bottle 01/14/21 Zinc Oxide 20% Oint [Zinc Oxide] 1 applic TOP PRN PRN #1 bottle 01/14/21 carvediloL [Coreg] 3.125 mg PO BID #60 tablet 01/14/21 - PHYSICAL EXAM AT DISCHARGE General Appearance: positive: No acute distress, Alert Eyes Bilateral: positive: Normal inspection, EOMI ENT: positive: ENT inspection nml, No signs of dehydration Neck: positive: Nml inspection, No JVD Respiratory: positive: No respiratory distress, Breath sounds nml Cardiovascular: positive: Regular rate & rhythm, No murmur Abdomen: positive: Non-tender, Other (Obese with pannus) Skin: positive: Dry Extremities: positive: Other (2+ edema, lower shins wrapped in gauze (much improved from redness at admission, was up to knees).) Neurologic/Psychiatric: positive: Oriented x3 (Non-focal) - LABS Result Diagrams: 01/14/21 05:56 01/14/21 05:56 - DIAGNOSTIC IMAGING Diagnostic Imaging Results: Final report reviewed - FOLLOW UP Follow Up: See PCP for a hospital F/U visit in 1-2 weeks and referral to Cardiology. - TIME SPENT Time Spent in Discharge (Minutes): 60
== END 2021-01-14 13:30 | DRG 292 ==
LOC: EDUNIT# → ED 18:30 → MS2 21:23 → OBSVTOIN 01-03 10:49
PROVIDERS: ADMIT Internal Medicine; ATTEND Internal Medicine
DX: R09.89 Other specified symptoms and signs involving the circulatory and respiratory systems (principal); I50.21 Acute systolic (congestive) heart failure; I82.432 Acute embolism and thrombosis of left popliteal vein; I82.812 Embolism and thrombosis of superficial veins of left lower extremity; L03.116 Cellulitis of left lower limb; L03.115 Cellulitis of right lower limb; I48.0 Paroxysmal atrial fibrillation; I95.9 Hypotension, unspecified; I89.0 Lymphedema, not elsewhere classified; R53.81 Other malaise; L89.159 Pressure ulcer of sacral region, unspecified stage; I87.2 Venous insufficiency (chronic) (peripheral); Z20.822 Contact with and (suspected) exposure to COVID-19; F41.0 Panic disorder [episodic paroxysmal anxiety]; E87.6 Hypokalemia; R77.8 Other specified abnormalities of plasma proteins; R82.71 Bacteriuria; R53.1 Weakness; Z96.642 Presence of left artificial hip joint; Z74.2 Need for assistance at home and no other household member able to render care; Z74.09 Other reduced mobility; Z79.899 Other long term (current) drug therapy; Z91.81 History of falling; Z87.891 Personal history of nicotine dependence; I48.91 Unspecified atrial fibrillation
CPT/HCPCS: 36415; 71045; 80048; 80053; 80061; 81001; 82550; 83036; 83605; 83735; 83880; 84439; 84443; 84484; 85025; 85379; 87040; 87070; 87077; 87086; 87181; 87205; 87631; 93005; 93306; 93970; 96374; 96376; 97110; 97162; 97165; 97530; 99284; 99285; A9270; G0378; J1650; 0202U; 81003; 83721